=== PATIENT | female | born 1980 | race Caucasian/White ===

== ENCOUNTER 2020-07-13 08:32 | Outpatient (REF) | payer OTHER, SELFPAY ==
[2020-07-13 11:02] LABS: MANUAL DIFF FLAG NO
[2020-07-13 11:17] LABS: Basophils Percent Auto 0.4 % (0-2); Eosinophils Absolute Auto 0.3 X10*3/uL (0.0-0.4); Eosinophils Percent Auto 2.4 % (0-4); Hematocrit 39.2 % (37-47); Hemoglobin 11.8 g/dl (12.0-16.0); Imm Gran Abs Auto 0.07 X10*3/uL (0.00-0.03); Imm Gran Pct Auto 0.6 % (0.0-0.4); Lymphocytes Absolute Auto 2.5 X10*3/uL (1.2-4.9); Lymphocytes Percent Auto 22.6 % (20-40); Mean Corpuscular HGB Conc 30.1 g/dl (31.0-35.0); Mean Corpuscular Hemoglobin 25.4 pg (27.0-33.0); Mean Corpuscular Volume 84.5 fL (80-98); Mean Platelet Volume 10.3 fL (9.4-12.3); Monocytes Absolute Auto 0.6 X10*3/uL (0.1-1.2); Monocytes Percent Auto 5.7 % (2-11); Neutrophils Absolute Auto 7.4 X10*3/uL (2.0-8.3); Neutrophils Percent Auto 68.3 % (45-73); Platelet Count 320 X10*3/uL (160-400); Red Blood Count 4.64 X10*6/uL (4.20-5.50); Red Cell Distribution Width 15.6 % (11.0-16.0); White Blood Count 10.8 X10*3/uL (4.8-10.8)
[2020-07-13 12:07] LABS: Creatinine Urine 57.58 mg/dL; Microalbum/Creatinine Ratio Ur 12.1 ug/mg cr
[2020-07-13 12:13] LABS: Alanine Aminotransferase 23 U/L (0-31); Albumin Level 3.9 g/dL (3.5-5.0); Alkaline Phosphatase 90 U/L (39-117); Anion Gap 11 (12-20); Aspartate Amino Transferase 17 U/L (5-31); Bilirubin Total 0.4 mg/dL (0.0-1.0); Blood Urea Nitrogen 10 mg/dL (9-16); Calcium 8.4 mg/dL (8.4-10.2); Carbon Dioxide 28 mmol/L (22-29); Chloride 103 mmol/L (96-108); Cholesterol 184 mg/dL; Estimated Glomerular Filt Rate > 60; Glucose Fasting 141 mg/dL (60-99); HDL Cholesterol 52 mg/dL; LDL Cholesterol Calculated 119 mg/dl; Potassium 4.7 mmol/L (3.3-5.1); Sodium 137 mmol/L (135-145); Total Protein 6.7 g/dL (6.5-8.0); Triglycerides 69 mg/dL
[2020-07-13 12:18] LABS: Estimated Average Glucose 160 mg/dL; Hemoglobin A1c % 7.2 %
== END 2020-07-13 08:33 | disposition home or self-care (01) ==
LOC: HO.HMGCLDS 08:32
PROVIDERS: PCP Internal Medicine; Visit Provider Internal Medicine
DX: M25.512 Pain in left shoulder (principal); E66.01 Morbid (severe) obesity due to excess calories
CPT/HCPCS: 36415; 80053; 80061; 82043; 83036; 84443; 85025

== ENCOUNTER 2020-08-11 12:20 | Outpatient (REF) | payer OTHER, SELFPAY | END 2020-08-11 12:21 | disposition home or self-care (01) | LOC: HO.HMGCX 12:20 | PROVIDERS: PCP Internal Medicine; Visit Provider Internal Medicine | DX: Z13.89 Encounter for screening for other disorder (principal) ==

== ENCOUNTER 2020-08-31 07:00 | Outpatient (RCR) | payer OTHER, SELFPAY ==
--- NOTE | 2020-07-21 10:46 | MHC.PT.EP ---
[facility] [place] Office [place] Office [place] Office [address] [phone] F: [phone] F: [phone] F: [phone] F: [phone] Physical Therapy Plan of Care Date of Evaluation: 07/21/20 Date of Surgery: n/a Diagnosis: Pain in left shoulder Assessment: Patient is a 39 year old R handed female who presents with s/s consistent with L shoulder pain/impingement. 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 Patient past medical history includes DM and morbid obesity. Current impairments include pain, ROM, strength, posture, activity tolerance and functional mobility. Functional limitations include decreased ability to reach, lift, carry, push, pull, sleep, and perform weight bearing activities.. Patient is motivated with good rehab potential. Skilled PT will address impairments and functional limitations in order to achieve goals. 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 Manual therapy to restore motion and function. Therapeutic exercise to improve strength and flexibility. Neuromuscular re-education for posture and balance. Therapeutic activities to return to functional activities of daily living. Electronically signed by: Isaak Castillo, PT Please sign and return to therapist. Thank you for your referral.
--- NOTE | ~2020-08-31 | XR_ITS ---
EXAMINATION: XR SHOULDER, LEFT CLINICAL INFORMATION: Pain left shoulder. COMPARISON: None TECHNIQUE: Left shoulder is imaged in 3 views. FINDINGS: There is focal calcification in region of distal rotator cuff, likely at the distal infraspinatus consistent with calcific tendinosis. There is some mild spurring or calcification also near the distal teres minor. The glenohumeral joint is unremarkable. There is no fracture or dislocation. The acromioclavicular alignment is normal. XR/XR shoulder LT min 2V IMPRESSION: Calcific tendinosis rotator cuff.
--- NOTE | 2020-09-01 07:13 | MHC.PT.DC ---
[facility] [place] Office [place] Office [place] Office [address] Tangela [address] [phone] F: [phone] F: [phone] F: [phone] F: [phone] Physical Therapy Discharge Report Diagnosis: Pain in left shoulder Date of Surgery: n/a Date of Evaluation: 07/21/20 Date of Discharge: 08/31/20 Treatments to Date: 10 Cancellations to Date: 0 No Shows to Date: 0 Discharge Status: Recommend MD Follow-up Discharge Summary: Pt has had no significant progress with 10 skilled PT visits. I will recommend further imaging at this time to discern best management of this patient to restore PLOF and quality of life. We have tried various interventions and none of them have improved symptomatic presentation. Electronically signed by: Isaak Castillo, PT Please sign and return to therapist. Thank you for your referral.
== END 2020-09-30 10:18 | disposition home or self-care (01) ==
LOC: HO.PTCHIC 07:00
PROVIDERS: PCP Internal Medicine; Visit Provider Internal Medicine
DX: M25.512 Pain in left shoulder (principal)
CPT/HCPCS: 73030; 97014; 97110; 97140; 97161

== ENCOUNTER → 2020-09-02 14:10 | Outpatient (BNVA) | payer OTHER, SELFPAY | PROVIDERS: PCP Internal Medicine; Visit Provider Physician Assistant | DX: M75.32 Calcific tendinitis of left shoulder (principal) | CPT/HCPCS: J1040 ==

== ENCOUNTER 2021-04-25 09:38 | Outpatient (REF) | payer OTHER, SELFPAY ==
--- NOTE | ~2021-04-25 | XR_ITS ---
EXAMINATION: XR ABDOMEN KUB CLINICAL INDICATION: Unspecified abdominal pain. COMPARISON: None TECHNIQUE: AP view of the abdomen. FINDINGS: The bowel gas pattern is nonspecific. There is no organomegaly. No radiopaque calculi seen. There is evidence of cholecystectomy. An IUD is noted in the pelvis. No gross bony abnormality seen. XR/XR KUB IMPRESSION: Unremarkable KUB exam.
[2021-04-25 11:57] LABS: Appearance Urine HAZY; Color Urine YELLOW; Glucose Urine UA NEG (NEG); Leukocyte Esterase Urine NEG (NEG); Nitrite Urine NEG (NEG); PH 5.5 (5.0-8.0); Specific Gravity - Urine >= 1.030 (1.005-1.025); Urine Blood NEG (NEG); Urine Ketones 15 MG/DL (NEG); Urine Protein NEG (NEG-TRACE)
[2021-04-25 12:19] LABS: Bacteria Urine 2+ /LPF; RBC Urine 0 /HPF (0); Squamous Epithelial Cell Urine 2+ /LPF
== END 2021-04-25 09:39 | disposition home or self-care (01) ==
LOC: HO.HMGCX 09:38
PROVIDERS: PCP Internal Medicine; Visit Provider Internal Medicine
DX: R10.9 Unspecified abdominal pain (principal)
CPT/HCPCS: 74018; 81001

== ENCOUNTER 2021-09-06 09:07 | Outpatient (REF) | payer OTHER, SELFPAY ==
[2021-09-06 11:09] LABS: MANUAL DIFF FLAG NO
[2021-09-06 11:29] LABS: Basophils Percent Auto 0.4 % (0-2); Eosinophils Absolute Auto 0.2 X10*3/uL (0.0-0.4); Eosinophils Percent Auto 1.8 % (0-4); Hematocrit 38.6 % (37.0-47.0); Hemoglobin 11.6 g/dl (12.0-16.0); Imm Gran Abs Auto 0.06 X10*3/uL (0.00-0.03); Imm Gran Pct Auto 0.7 % (0.0-0.4); Lymphocytes Absolute Auto 1.8 X10*3/uL (1.2-4.9); Lymphocytes Percent Auto 21.3 % (20-40); Mean Corpuscular HGB Conc 30.1 g/dl (31.0-35.0); Mean Corpuscular Hemoglobin 25.1 pg (27.0-33.0); Mean Corpuscular Volume 83.5 fL (80.0-98.0); Mean Platelet Volume 9.6 fL (9.4-12.3); Monocytes Absolute Auto 0.6 X10*3/uL (0.1-1.2); Monocytes Percent Auto 6.9 % (2-11); Neutrophils Absolute Auto 5.9 x10*3/uL (2.0-8.3); Neutrophils Percent Auto 68.9 % (45-73); Platelet Count 341 X10*3/uL (160-400); Red Blood Count 4.62 X10*6/uL (4.20-5.50); Red Cell Distribution Width 15.2 % (11.0-16.0); White Blood Count 8.5 X10*3/uL (4.8-10.8)
[2021-09-06 12:09] LABS: Creatinine Urine 111.19 mg/dL; Microalbum/Creatinine Ratio Ur 11.6 ug/mg cr
[2021-09-06 12:14] LABS: Estimated Average Glucose 177 mg/dL; Hemoglobin A1c % 7.8 %
[2021-09-06 12:47] LABS: Alanine Aminotransferase 39 U/L (0-31); Albumin Level 3.8 g/dL (3.5-5.0); Alkaline Phosphatase 90 U/L (39-117); Anion Gap 15 (12-20); Aspartate Amino Transferase 26 U/L (5-31); Bilirubin Total 0.3 mg/dL (0.0-1.0); Blood Urea Nitrogen 10 mg/dL (9-16); Calcium 9.3 mg/dL (8.4-10.2); Carbon Dioxide 22 mmol/L (22-29); Chloride 106 mmol/L (96-108); Cholesterol 195 mg/dL; Estimated Glomerular Filt Rate > 60; Glucose Fasting 154 mg/dL (60-99); HDL Cholesterol 51 mg/dL; Iron 41 mcg/dL (30-160); LDL Cholesterol Calculated 131 mg/dl; Potassium 4.7 mmol/L (3.3-5.1); Sodium 138 mmol/L (135-145); Total Protein 6.9 g/dL (6.5-8.0); Triglycerides 66 mg/dL
[2021-09-06 12:57] LABS: TSH reflex Free T4 1.84 uIU/mL (0.32-4.0)
[2021-09-06 13:38] LABS: Percent Iron Saturation 11 % (15-50); Total Iron Binding Capacity 372 mcg/dL (228-428); Unsaturated Iron Binding 331 ug/dL
== END 2021-09-06 09:08 | disposition home or self-care (01) ==
LOC: HO.HMGCLDS 09:07
PROVIDERS: PCP Internal Medicine; Visit Provider Internal Medicine
DX: Z00.00 Encounter for general adult medical examination without abnormal findings (principal); E11.9 Type 2 diabetes mellitus without complications; E66.01 Morbid (severe) obesity due to excess calories; D64.9 Anemia, unspecified; F41.9 Anxiety disorder, unspecified; M75.32 Calcific tendinitis of left shoulder; M25.512 Pain in left shoulder; R21 Rash and other nonspecific skin eruption
CPT/HCPCS: 36415; 80053; 80061; 82043; 83036; 83540; 84443; 85025; 85027

== ENCOUNTER 2021-10-09 10:23 | Outpatient (REF) | payer OTHER, SELFPAY ==
--- NOTE | ~2021-10-09 | XR_ITS ---
EXAMINATION: XR LUMBOSACRAL SPINE CLINICAL INFORMATION: Sciatica. COMPARISON: None TECHNIQUE: Three views of the lumbosacral spine. FINDINGS: There is maintained lumbar lordosis. The vertebral heights, alignment and disc heights are normal. No visible acute fracture, dislocation or subluxation seen. There is no lytic or sclerotic process. The paravertebral soft tissues are normal. SI joints are symmetric and normal. An IUD is noted in the pelvis. XR/XR lumbar spine 2-3V IMPRESSION: Unremarkable lumbar spine exam.
[2021-10-09 11:59] LABS: Anion Gap 12 (12-20); Blood Urea Nitrogen 11 mg/dL (9-16); Calcium 9.2 mg/dL (8.4-10.2); Carbon Dioxide 25 mmol/L (22-29); Chloride 104 mmol/L (96-108); Estimated Glomerular Filt Rate > 60; Glucose Random 174 mg/dL (60-115); Magnesium 1.8 mg/dL (1.6-2.6); Potassium 4.1 mmol/L (3.3-5.1); Sodium 137 mmol/L (135-145)
== END 2021-10-09 10:24 | disposition home or self-care (01) ==
LOC: HO.HMGCLDS 10:23
PROVIDERS: PCP Internal Medicine; Visit Provider Internal Medicine
DX: M54.30 Sciatica, unspecified side (principal); I10 Essential (primary) hypertension; E66.01 Morbid (severe) obesity due to excess calories; E78.5 Hyperlipidemia, unspecified
CPT/HCPCS: 36415; 72100; 80048; 83735

== ENCOUNTER 2021-11-30 07:00 | Outpatient (RCR) | payer OTHER, SELFPAY ==
--- NOTE | 2021-10-20 07:57 | MHC.PT.EP ---
[facility] [place] Office [place] Office [place] Office [address]ela Armstrong [address] [phone] F: [phone] F: [phone] F: [phone] F: [phone] Physical Therapy Plan of Care Date of Evaluation: Date of Surgery: Diagnosis: sciatica Assessment: 40 y/o F referred to PT with sciatica. She has had LBP that radiates into R posterior thigh for 3-4 months of insidious onset. 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 Walking is most difficult. PMH significant for DM and HTN. Examination shows decreased lumbar AROM, decreased core/hip strength, decreased quad and hip flexor length, increased pain, and impaired gait pattern. S/s consistent with SI dysfunction and lumbar dysfunction. Recommend PT 2x/week for 5 weeks to address impairments, implement HEP, and optimize functional mobility. Frequency and Duration: The patient will be seen 2x/week for 5 weeks Short Term Goals: 3 weeks 1. I with HEP 2. Improve lumbar hip flexion to 100* B Halfway Goals: 5 weeks 1. I with HEP and self management of sx 2. Improve B hip strength to 4+/5 to facilitate prolonged walking 3. Pt will be able to wash dishes x 10min with pain < 3/10 Treatment Plan: Modalities to reduce pain, spasms and effusion. Manual therapy to restore motion and function. Therapeutic exercise to improve strength and flexibility. Neuromuscular re-education for posture and balance. Therapeutic activities to return to functional activities of daily living. Electronically signed by: Eun Ziegler PT Please sign and return to therapist. Thank you for your referral.
--- NOTE | 2021-11-30 09:30 | MHC.PT.DC ---
[facility] [place] Office [place] Office [place] Office [address] [phone] F: [phone] F: [phone] F: [phone] F: [phone] Physical Therapy Discharge Report Diagnosis: sciatica Date of Surgery: Date of Evaluation: 10/20/21 Date of Discharge: Treatments to Date: 9 Cancellations to Date: 1 No Shows to Date: 0 Discharge Status: Discharge Summary: We reviewed and re-issued HEP. Pt is I with HEP thus far. Lumbar and hip flexion WNL. Hip strength 4+/5 grossly. Able to stand, walk and wash dishes without increase of pain beyond 3/10. Oswestry 8%. Pt has progressed well on impairments and functional limitations over the course of skilled PT and is appropriate to d/c to HEP at this time. Electronically signed by: Please sign and return to therapist. Thank you for your referral.
== END 2021-11-30 09:31 | disposition home or self-care (01) ==
LOC: HO.PTCHIC 07:00
PROVIDERS: PCP Internal Medicine; Visit Provider Internal Medicine
DX: M54.30 Sciatica, unspecified side (principal)
CPT/HCPCS: 97110; 97112; 97140; 97161

== ENCOUNTER 2022-01-04 07:00 | Outpatient (RCR) | payer OTHER, SELFPAY | END 2022-04-04 10:27 | disposition home or self-care (01) | LOC: HO.PTCHIC 07:00 | PROVIDERS: PCP Internal Medicine; Visit Provider Physician Assistant | DX: M25.811 Other specified joint disorders, right shoulder (principal); M25.812 Other specified joint disorders, left shoulder | CPT/HCPCS: 97035; 97110; 97140; 97161 ==

== ENCOUNTER → 2022-01-05 15:07 | Outpatient (BNVA) | payer OTHER, SELFPAY | PROVIDERS: PCP Internal Medicine; Visit Provider Internal Medicine Endocrinology, Diabetes & Metabolism | DX: E11.65 Type 2 diabetes mellitus with hyperglycemia (principal); E78.5 Hyperlipidemia, unspecified | CPT/HCPCS: 82947 ==

== ENCOUNTER 2022-01-10 08:06 | Outpatient (REF) | payer OTHER, SELFPAY ==
[2022-01-10 11:53] LABS: Alanine Aminotransferase 22 U/L (0-31); Albumin Level 3.7 g/dL (3.5-5.0); Alkaline Phosphatase 83 U/L (39-117); Anion Gap 17 (12-20); Aspartate Amino Transferase 26 U/L (5-31); Bilirubin Total 0.2 mg/dL (0.0-1.0); Blood Urea Nitrogen 11 mg/dL (9-16); Calcium 8.7 mg/dL (8.4-10.2); Carbon Dioxide 23 mmol/L (22-29); Chloride 105 mmol/L (96-108); Estimated Glomerular Filt Rate > 60; Glucose Fasting 152 mg/dL (60-99); Potassium 4.9 mmol/L (3.3-5.1); Sodium 140 mmol/L (135-145); Total Protein 6.9 g/dL (6.5-8.0)
[2022-01-10 12:00] LABS: Estimated Average Glucose 148 mg/dL; Hemoglobin A1c % 6.8 %
== END 2022-01-10 08:07 | disposition home or self-care (01) ==
LOC: HO.HMGCLDS 08:06
PROVIDERS: PCP Internal Medicine; Visit Provider Internal Medicine
DX: E11.9 Type 2 diabetes mellitus without complications (principal); I10 Essential (primary) hypertension; E78.5 Hyperlipidemia, unspecified; Z79.4 Long term (current) use of insulin
CPT/HCPCS: 36415; 80053; 83036; 85027

== ENCOUNTER 2022-01-13 06:44 | Outpatient (REF) | payer OTHER, SELFPAY ==
[2022-01-13 11:12] LABS: Hematocrit 35.7 % (37.0-47.0); Mean Corpuscular HGB Conc 30.8 g/dl (31.0-35.0); Mean Corpuscular Hemoglobin 26.2 pg (27.0-33.0); Platelet Count 329 X10*3/uL (160-400); Red Cell Distribution Width 15.5 % (11.0-16.0); White Blood Count 9.3 X10*3/uL (4.8-10.8)
== END 2022-01-13 06:45 | disposition home or self-care (01) ==
LOC: HO.HMGCLDS 06:44
PROVIDERS: PCP Internal Medicine; Visit Provider Internal Medicine
DX: E78.5 Hyperlipidemia, unspecified (principal); I10 Essential (primary) hypertension
CPT/HCPCS: 36415; 85027

== ENCOUNTER 2022-01-23 08:12 | Outpatient (REF) | payer OTHER, SELFPAY ==
[2022-01-23 12:05] LABS: Anion Gap 16 (12-20); Blood Urea Nitrogen 11 mg/dL (9-16); Calcium 8.8 mg/dL (8.4-10.2); Carbon Dioxide 24 mmol/L (22-29); Chloride 105 mmol/L (96-108); Estimated Glomerular Filt Rate > 60; Glucose Random 154 mg/dL (60-115); Potassium 4.5 mmol/L (3.3-5.1); Sodium 140 mmol/L (135-145)
== END 2022-01-23 08:13 | disposition home or self-care (01) ==
LOC: HO.HMGCLDS 08:12
PROVIDERS: PCP Internal Medicine; Visit Provider Internal Medicine Endocrinology, Diabetes & Metabolism
DX: E11.65 Type 2 diabetes mellitus with hyperglycemia (principal)
CPT/HCPCS: 36415; 80048

== ENCOUNTER 2022-02-16 08:09 | Outpatient (REF) | payer OTHER, SELFPAY ==
[2022-02-16 11:35] LABS: Cholesterol 136 mg/dL; HDL Cholesterol 46 mg/dL; LDL Cholesterol Calculated 80 mg/dl; Triglycerides 50 mg/dL
== END 2022-02-16 08:10 | disposition home or self-care (01) ==
LOC: HO.HMGCLDS 08:09
PROVIDERS: PCP Internal Medicine; Visit Provider Internal Medicine Endocrinology, Diabetes & Metabolism
DX: E78.5 Hyperlipidemia, unspecified (principal)
CPT/HCPCS: 36415; 80061

== ENCOUNTER → 2022-03-14 08:55 | Outpatient (BNVA) | payer OTHER, SELFPAY | PROVIDERS: PCP Internal Medicine; Visit Provider Dietitian, Registered | DX: E11.65 Type 2 diabetes mellitus with hyperglycemia (principal) | CPT/HCPCS: 97802 ==

== ENCOUNTER → 2022-04-02 15:02 | Outpatient (REF) | payer OTHER, SELFPAY | LOC: HO.SL 15:02 | PROVIDERS: PCP Internal Medicine; Visit Provider Internal Medicine | DX: G47.33 Obstructive sleep apnea (adult) (pediatric) (principal) | CPT/HCPCS: 95806 ==

== ENCOUNTER 2022-04-18 07:00 | Outpatient (RCR) | payer OTHER, SELFPAY | END 2022-04-18 11:37 | disposition home or self-care (01) | LOC: HO.PTCHIC 07:00 | PROVIDERS: PCP Internal Medicine; Visit Provider Orthopaedic Surgery | DX: Z98.890 Other specified postprocedural states (principal) | CPT/HCPCS: 97110; 97140; 97162 ==

== ENCOUNTER 2022-05-05 13:09 | Outpatient (REF) | payer OTHER, SELFPAY ==
[2022-05-05 14:31] LABS: Estimated Average Glucose 140 mg/dL; Hemoglobin A1c % 6.5 %
[2022-05-05 14:32] LABS: Creatinine Urine 151.18 mg/dL; Microalbum/Creatinine Ratio Ur 15.8 ug/mg cr
[2022-05-05 14:53] LABS: Alanine Aminotransferase 17 U/L (0-31); Albumin Level 3.7 g/dL (3.5-5.0); Alkaline Phosphatase 88 U/L (39-117); Anion Gap 12 (12-20); Aspartate Amino Transferase 13 U/L (5-31); Bilirubin Total 0.3 mg/dL (0.0-1.0); Blood Urea Nitrogen 13 mg/dL (9-16); Calcium 8.8 mg/dL (8.4-10.2); Carbon Dioxide 26 mmol/L (22-29); Chloride 105 mmol/L (96-108); Cholesterol 118 mg/dL; Estimated Glomerular Filt Rate > 60; Glucose Fasting 128 mg/dL (60-99); HDL Cholesterol 41 mg/dL; LDL Cholesterol Calculated 66 mg/dl; Potassium 4.4 mmol/L (3.3-5.1); Sodium 139 mmol/L (135-145); TSH reflex Free T4 1.72 uIU/mL (0.32-4.0); Total Protein 6.3 g/dL (6.5-8.0); Triglycerides 56 mg/dL
== END 2022-05-05 13:10 | disposition home or self-care (01) ==
LOC: HO.HMGCLDS 13:09
PROVIDERS: PCP Internal Medicine; Visit Provider Internal Medicine
DX: G47.30 Sleep apnea, unspecified (principal); I10 Essential (primary) hypertension; E78.5 Hyperlipidemia, unspecified; Z79.4 Long term (current) use of insulin
CPT/HCPCS: 36415; 80053; 80061; 82043; 83036; 84443

== ENCOUNTER → 2022-05-08 08:04 | Outpatient (BNVA) | payer OTHER, SELFPAY | PROVIDERS: PCP Internal Medicine; Visit Provider Internal Medicine Endocrinology, Diabetes & Metabolism | DX: E11.65 Type 2 diabetes mellitus with hyperglycemia (principal); E78.5 Hyperlipidemia, unspecified; E66.01 Morbid (severe) obesity due to excess calories; Z68.43 Body mass index [BMI] 50.0-59.9, adult; Z79.4 Long term (current) use of insulin | CPT/HCPCS: 82947 ==

== ENCOUNTER 2022-06-14 12:01 | Outpatient (REF) | payer OTHER, SELFPAY ==
[2022-06-14 12:54] LABS: Influenza A PCR NEGATIVE (Negative); Influenza B PCR NEGATIVE (Negative); Resp Syncy Virus RNA Qual PCR NEGATIVE (Negative); SARS COV2 PCR INHOUSE NEGATIVE (Negative)
== END 2022-06-14 12:02 | disposition home or self-care (01) ==
LOC: HO.LNP 12:01
PROVIDERS: Visit Provider Internal Medicine
DX: Z20.822 Contact with and (suspected) exposure to COVID-19 (principal); R09.89 Other specified symptoms and signs involving the circulatory and respiratory systems
CPT/HCPCS: 0241U

== ENCOUNTER → 2022-06-26 19:30 | Outpatient (REF) | payer OTHER, SELFPAY | LOC: HO.SL 19:30 | PROVIDERS: Visit Provider Internal Medicine | DX: G47.33 Obstructive sleep apnea (adult) (pediatric) (principal) | CPT/HCPCS: 95811 ==

== ENCOUNTER 2022-09-03 07:55 | Outpatient (REF) | payer OTHER, SELFPAY ==
[2022-09-03 11:10] LABS: MANUAL DIFF FLAG NO
[2022-09-03 11:22] LABS: Appearance Urine Clear; Color Urine Yellow; Glucose Urine UA >=1000 mg/dL (Negative); Leukocyte Esterase Urine Negative (Negative); Nitrite Urine Negative (Negative); PH 5.5 (5.0-9.0); Specific Gravity - Urine >= 1.030 (1.005-1.025); UMIC TRIGGER UA YES; Urine Blood Negative (Negative); Urine Ketones 15 mg/dL (Negative); Urine Protein Negative (Neg-Trace)
[2022-09-03 11:24] LABS: Basophils Absolute Auto 0.1 X10*3/uL (0.0-0.2); Basophils Percent Auto 0.5 % (0-2); Eosinophils Absolute Auto 0.2 X10*3/uL (0.0-0.4); Eosinophils Percent Auto 1.6 % (0-4); Hematocrit 38.8 % (37.0-47.0); Hemoglobin 11.9 g/dl (12.0-16.0); Imm Gran Abs Auto 0.06 X10*3/uL (0.00-0.03); Imm Gran Pct Auto 0.6 % (0.0-0.4); Lymphocytes Absolute Auto 2.1 X10*3/uL (1.2-4.9); Lymphocytes Percent Auto 19.7 % (20-40); Mean Corpuscular HGB Conc 30.7 g/dl (31.0-35.0); Mean Corpuscular Hemoglobin 26.7 pg (27.0-33.0); Mean Platelet Volume 9.8 fL (9.4-12.3); Monocytes Absolute Auto 0.6 X10*3/uL (0.1-1.2); Monocytes Percent Auto 5.6 % (2-11); Neutrophils Absolute Auto 7.6 x10*3/uL (2.0-8.3); Platelet Count 320 X10*3/uL (160-400); Red Blood Count 4.46 X10*6/uL (4.20-5.50); Red Cell Distribution Width 15.3 % (11.0-16.0); White Blood Count 10.5 X10*3/uL (4.8-10.8)
[2022-09-03 11:29] LABS: Bacteria Urine 2+ (None Seen); Hyaline Casts Urine 0-2 /LPF (0-2); RBC Urine 0-2 /HPF (0-2)
[2022-09-03 11:50] LABS: Estimated Average Glucose 117 mg/dL; Hemoglobin A1c % 5.7 %
[2022-09-03 11:54] LABS: Alanine Aminotransferase 19 U/L (0-31); Albumin Level 3.8 g/dL (3.5-5.0); Alkaline Phosphatase 96 U/L (39-117); Anion Gap 12 (12-20); Aspartate Amino Transferase 16 U/L (5-31); Bilirubin Total 0.6 mg/dL (0.0-1.0); Blood Urea Nitrogen 9 mg/dL (9-16); Carbon Dioxide 28 mmol/L (22-29); Chloride 106 mmol/L (96-108); Cholesterol 126 mg/dL; Estimated Glomerular Filt Rate > 60; Glucose Fasting 122 mg/dL (60-99); HDL Cholesterol 45 mg/dL; LDL Cholesterol Calculated 71 mg/dl; Potassium 4.1 mmol/L (3.3-5.1); Sodium 142 mmol/L (135-145); Total Protein 6.6 g/dL (6.5-8.0); Triglycerides 54 mg/dL
[2022-09-03 12:24] LABS: Folate 9.4 ng/mL (> or = 4.0); TSH reflex Free T4 2.33 uIU/mL (0.32-4.0); Vitamin B12 753 pg/mL (200-900); Vitamin D 25-OH Total 30.5 ng/mL (>30)
[2022-09-04 19:08] LABS: Triiodothyronine T3 Free 3.4 pg/mL (2.3-4.2)
== END 2022-09-03 07:56 | disposition home or self-care (01) ==
LOC: HO.HMGCLDS 07:55
PROVIDERS: PCP Internal Medicine; Visit Provider Internal Medicine
DX: Z00.00 Encounter for general adult medical examination without abnormal findings (principal); E66.01 Morbid (severe) obesity due to excess calories; G47.30 Sleep apnea, unspecified; E55.9 Vitamin D deficiency, unspecified; E53.8 Deficiency of other specified B group vitamins; I10 Essential (primary) hypertension; E78.5 Hyperlipidemia, unspecified; E11.9 Type 2 diabetes mellitus without complications
CPT/HCPCS: 36415; 80053; 80061; 81001; 82306; 82607; 82746; 83036; 84443; 84481; 85025

== ENCOUNTER 2023-01-01 07:58 | Outpatient (AMB) | payer OTHER, SELFPAY ==
--- NOTE | 2023-01-01 08:01 | A.OFFVIS_ITS ---
Intake Vital Signs 01/01/23 08:04 Height 5 ft 2 in Weight 300 lb 11.368 oz BMI 55.0 BP 106/68 Blood Pressure Location Lt brachial Position Sitting Pulse 78 Pulse Source Pulse Oximeter Intake Visit Reasons: DM2 Intake Note: Patient present today to follow up on Type 2 Diabetes Mellitus. 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 Medication List - Last Reconciled 01/01/23 by Abiodun Arreola MD albuterol sulfate 90 mcg/actuation 1 puff PO QID PRN atorvastatin 20 mg PO DAILY CPAP (CPAP Machine/Device) including supplies-pressure setting 13cm H2O with AirFit 20 small mask empagliflozin (Jardiance) 25 mg PO DAILY flash glucose scanning reader (FreeStyle Sheryl 2 [place]) As directed flash glucose sensor (FreeStyle Sheryl 2 Sensor kit) As directed to test blood sugar 4 times per day Humalog KwikPen Insulin (insulin lispro) 14 units (0.14 mL) subcut TID NS insulin glargine (Lantus U-100 Insulin) 50 units subcut DAILY lancets (FreeStyle Lancets) test blood sugar 3 times per day olmesartan 10 mg PO DAILY pantoprazole 40 mg PO BID tirzepatide (Mounjaro) 10 mg (0.5 mL) subcut QWEEK HPI HPI Comments History of Present Illness Details 41 YO F who is seen in consultation for T2DM at the request of PCP. Initially diagnosed with T2DM in 2012. Was initially started on treatment with metformin.Can't swallow Current regimen Mounjaro 10 mg q wkly stooped in october due to insurance coverage . Took Trulicity in past Jardiance 25 mg QD Lantus 40 units Humalog 13 units in AM and 20 units before lunch and dinner Per the CGM / Sheryl CGMS is active 91 % of time . data the patient's predicted A1C is 7.5 % . Avg glucose is 176 . Variability of 23.9 % The patient's blood sugars were in target 53% % of the time, above target 47 % of the time, and below target 0% % of the time Pattern shows post-lunch and post-dinner hyperglycemia Reports no low sugars . . Family history of T2DM in Paternal side . Has eyes checked yearly, last eye exam October 2022 , denies retinopathy. Denies neuropathy, last foot exam couple of wks ago , sees podiatry. Denies nephropathy, on MEENAKSHI/ARB. Has HLD, on statin. Denies CAD. Had diabetes education when first diagnosed Obesity during teen yrs. Have sleep apnea . CPAP didn't work. Did well On Trim Healthy Mama lost 50 lbs Tried OTC meds PFSH Medical History Acute flank pain Anemia Annual physical exam Anxiety Dysphagia HTN (hypertension) Hx of screening mammography Hyperlipemia IDDM (insulin dependent diabetes mellitus) Morbid obesity Normal Pap smear Normal pelvic exam Rash of both feet Sciatica Sleep apnea Uncontrolled diabetes mellitus with hyperglycemia Surgical History History of tonsillectomy and adenoidectomy Hx of cholecystectomy Hx of shoulder surgery Hx of wisdom tooth extraction Family History Father CVD (cardiovascular disease) Diabetes mellitus Substance use disorder Mother No problems noted. Paternal Grandmother Diabetes mellitus Paternal Grandfather Diabetes mellitus Sister Cancer of thyroid Maternal Grandmother Mental health disorder Social History Housing: Apartment Alcohol intake: current Alcohol intake frequency: holidays/special occasions only Patient Tobacco Use Status: Former Tobacco user Quit Date: 2002 e-Cigarette/Vaping Use: Never Used Current occupational status: employed Cognitive needs: No Hearing needs: No Vision needs: Yes Physical Exam Vital Signs: Last Vital Signs Pulse 78 01/01/23 08:04 BP 106/68 01/01/23 08:04 BMI result Body Mass Index 55.0 Absence of Cushingoid features. Absence of acromegalic features. Neck exam reveals nl size thyroid about 15 gms. No thyroid nodules palpable. No carotid bruits present. Lungs CTA. Heart S1 S2, Reg R/R. No M/R/ G. Skin exam reveals absence of vitiligo but presence of acanthosis nigricans. Abdominal exam reveals Soft NT/ND with NA BS. No organomegaly present. Neck Other: . Extrem Other: Visual exam of foot performed. No ulcerations or open lesions. No onchomycosis, no callouses.Pulses 2 + distally Sensation intact to monofilament exam. Vibratory sensation sensed is intact with 128 Hz tuning fork Results AMB Hemoglobin A1c AMB Hemoglobin A1c 6.6 % Last Edit by GONZALEZ Paniagua on 01/01/23 08:23 Results Reviewed Results Reviewed: 01/01/23 08:12 Glucose, Whole Blood Routine Laboratory Last Values Glucose (Clinic) 143 mg/dL (60-115) H 01/01/23 08:12 Assessment & Plan Assessment & Plan (1) IDDM (insulin dependent diabetes mellitus): Comment: Difficulty swallowing metformin tablet (2) Uncontrolled diabetes mellitus with hyperglycemia: Code(s): E11.65 - Type 2 diabetes mellitus with hyperglycemia Plan: This is a 42-year-old white female with a history of type 2 diabetes and morbid obesity being treated with Mounjaro, Farxiga, basal -bolus insulin with good but not optimal glycemic control and no known microvascular or macrovascular complications The plan is to reinitiate a G LP 1 namely Ozempic 1 mg Q weekly. Patient was warned of side effects of Ozempic including but not limited to nausea, vomiting risk pancreatitis. Was also told to report any hypoglycemia for adjustment of insulin regimen . Ozempic 0.5 mg samples given the patient lot number [id number] expiration 06/26/2024 (3) Hyperlipemia: Code(s): E78.5 - Hyperlipidemia, unspecified Plan: LDL is not at goal. LDL at goal on atorvastatin Orders: Orders AMB Hemoglobin A1c Today E11.65 - Type 2 diabetes mellitus with hyperglycemia Medications: New semaglutide (Ozempic) 1 mg (0.75 mL) subcut QWEEK 3 mL 5RF Changed From insulin glargine (Lantus U-100 Insulin) 40 units (0.4 mL) subcut DAILY 40 mL 3RF To insulin glargine (Lantus U-100 Insulin) 50 units subcut DAILY Discontinued tirzepatide (Mounjaro) Discontinued Reason: Doctor's Order 10 mg (0.5 mL) subcut QWEEK 2 mL 4RF E11.65 - Type 2 diabetes mellitus with hyperglycemia Coding Level of Care Code Est Pt Level 4 (11337) Diagnoses IDDM (insulin dependent diabetes mellitus) Uncontrolled diabetes mellitus with hyperglycemia E11.65 Hyperlipemia E78.5
[2023-01-01 08:04] VITALS: BP 106/68; PULSE 78; BMI 55.0
[2023-01-01 08:17] LABS: Glucose, Whole Blood 143 mg/dL (60-115)
== END 2023-01-01 08:57 | disposition home or self-care (01) ==
PROVIDERS: PCP Internal Medicine; Visit Provider Internal Medicine Endocrinology, Diabetes & Metabolism
DX: E11.65 Type 2 diabetes mellitus with hyperglycemia (principal); E78.5 Hyperlipidemia, unspecified
CPT/HCPCS: 99214

== ENCOUNTER → 2023-01-01 07:58 | Outpatient (BNVA) | payer OTHER, SELFPAY | PROVIDERS: Visit Provider Internal Medicine Endocrinology, Diabetes & Metabolism | DX: E11.65 Type 2 diabetes mellitus with hyperglycemia (principal); Z79.4 Long term (current) use of insulin; Z87.891 Personal history of nicotine dependence | CPT/HCPCS: 82947; 83036 ==

== ENCOUNTER 2023-06-30 17:58 | Emergency (ER) | payer OTHER, SELFPAY ==
--- NOTE | ~2023-06-30 | CT_ITS ---
EXAMINATION: CT ANGIOGRAM NECK AND HEAD CLINICAL INFORMATION: Severe b occipital pain with elevated BP COMPARISON: Noncontrast head CT 06/30/2023 TECHNIQUE: Test bolus sequences followed by intravenous administration 70 mL of Omnipaque 350. Helical imaging was performed in the axial plane from the thoracic inlet to the skull vertex. Delayed postcontrast imaging of the head was also performed. The data was processed at the certified neurodiagnostic technologist's workstation for generation of MIP sequences. Angled MIPs and volume rendered reformatted images were also generated at an offline 3D workstation. Stenoses are assessed in accordance with NASCET criteria unless otherwise indicated. DOSE LOWERING TECHNIQUES: This CT examination was performed using dose optimization techniques as appropriate, variously including the following: - Automated exposure control - Adjustment of mA and/or kV according to patient size (this includes techniques or standardized protocols for targeted exams were dose is matched to indication/reason for exam; i.e. extremities or head) - Use of iterative reconstruction technique DLP: 1697 mGy-cm FINDINGS: Neck CTA: There is common origin of the brachiocephalic and left common carotid arteries off the aortic arch. Normal appearance of the visualized aortic arch and proximal branches. No evidence of stenosis at the branch origins. Both vertebral arteries are widely patent throughout their extracranial cervical course. Normal appearance of the common and internal carotid arteries without focal stenosis. Brain CTA: Normal appearance of the intradural vertebral arteries. Normal appearance of the basilar and superior cerebellar arteries. Normally opacified posterior cerebral arteries bilaterally, with origin of the right posterior cerebral artery noted. Normal appearance of the intradural internal carotid arteries without focal stenosis. Normal appearance of the anterior cerebral and middle cerebral arteries without focal occlusion or stenosis. Normal anterior communicating artery. Normal arborization of the middle cerebral arteries. CT Head: No intracranial mass, hemorrhage, extra-axial collection, or midline shift. The vo-white matter differentiation is preserved. No pathologic intra-axial enhancement or regional oligemia. No hydrocephalus. Partially opacified bilateral ethmoid air cells. Mastoid air cells are well aerated. CT Neck: The thyroid gland and remaining cervical soft tissues are normal in appearance. Mild degenerative changes in the cervical spine as detailed on recent cervical spine CT. Upper Chest: No abnormalities in the visualized lung apices or upper mediastinum. CT/CT angio head neck IMPRESSION: No hemodynamically significant stenosis in the major arteries of the neck. No large vessel occlusion or significant stenosis in the intracranial circulation.
--- NOTE | ~2023-06-30 | CT_ITS ---
Examination: CT brain and CT cervical spine without contrast. CLINICAL INDICATION: Occipital pain. COMPARISON: None. TECHNIQUE: 5 mm thin axial and reformatted 2 mm thin sagittal and coronal images of brain were obtained. Subsequently axial 3 mm thin and reformatted 2 mm thin sagittal and coronal images of cervical spine were obtained. DLP 1359. This CT examination was performed using dose optimization technique as appropriate, variously including the following: Automated exposure control Adjustment of MA and/or KV according to patient size(this includes techniques or standardized protocols for targeted exams where dose is matched to indication/reason for exam; extremities or head. Use of iterative reconstruction techniques. FINDINGS: Brain: There is no acute intra-axial, extra-axial bleed, masses or midline shift. There is no acute infarction in evolution. There is no edema. The vo to white matter differentiation is maintained normal. The lateral ventricles are symmetrical in size and configuration without enlargement. Bone windows reveal no calvarial abnormality. There is no scalp soft tissue abnormality. There is mild mucoperiosteal thickening bilateral anterior ethmoid sinuses. Rest the paranasal sinuses are clear. There is moderate deviation nasal septum to the left. The bony sinus scales and the bony orbits appear unremarkable. Cervical spine: There is mild straightening of cervical lordosis. The vertebral heights, alignment and disc heights are normal. No visible acute fracture, dislocation or subluxation seen. Is widened ventral spondylosis C4-C5 and T1-T2 disc levels. The craniovertebral junction and the C1-C2 alignment is normal. No visible acute fracture, dislocation or subluxation seen. The airway appears widely patent. Visualized bilateral parotid and submandibular glands appear symmetrical the airways widely patent. The prevertebral and paravertebral soft tissues are normal. The lung apices are clear. The tracheal airway is patent. CT/CT cervical spine wo IV con IMPRESSION: 1. No acute intracranial process seen. No abnormality seen in the occipital region 2. There is no acute fracture, dislocation or subluxation seen in cervical spine. There is mild ventral spondylosis C4-C5 and T1-T2 disc levels.
[2023-06-30 18:02] VITALS: BP 199/83; PULSE 104; RESP 17; TEMP 37.1; O2SAT 97; BMI 57.6
--- NOTE | 2023-06-30 18:06 | ED.GENADULT ---
HPI - General Adult General Chief complaint: Neck Pain/Injury Stated complaint: stiff neck, cant move it. Time Seen by Provider: 06/30/23 23:10 Related Data Home Medications Medication Instructions Recorded Confirmed olmesartan 5 mg tablet 10 mg PO DAILY 11/08/22 01/01/23 insulin glargine 100 unit/mL 50 unit subcut DAILY 01/01/23 01/01/23 subcutaneous solution (Lantus U-100 Insulin) Previous Rx's Medication Instructions Recorded albuterol sulfate 90 mcg/actuation 1 puff PO QID PRN for wheezing #7 11/16/21 aerosol inhaler ea lancets 28 gauge (FreeStyle #300 ea 01/19/22 Lancets) CPAP (CPAP Machine/Device) #1 ea 07/17/22 flash glucose scanning reader #1 ea 08/20/22 (FreeStyle Sheryl 2 [place]) pantoprazole 40 mg tablet,delayed 40 mg PO BID #180 tabs 12/12/22 release semaglutide 1 mg/dose (4 mg/3 mL) 1 mg (0.75 mL) subcut QWEEK #3 mL 01/01/23 subcutaneous pen injector (Ozempic) Humalog KwikPen Insulin 100 14 unit (0.14 mL) subcut TID #15 mL 02/15/23 unit/mL subcutaneous (insulin lispro) flash glucose sensor (FreeStyle #6 ea 02/15/23 Sheryl 2 Sensor kit) atorvastatin 20 mg tablet 20 mg PO DAILY #30 tabs 02/26/23 empagliflozin 25 mg tablet 25 mg PO DAILY #30 tabs 03/25/23 (Jardiance) Allergies Allergy/AdvReac Type Severity Reaction Status Date / Time acetaminophen [Percocet] Allergy Unknown itchy, Verified 01/01/23 08:05 swelling in legs oxycodone [Percocet] Allergy Unknown itchy, Verified 01/01/23 08:05 swelling in legs metformin AdvReac Unknown not able Verified 01/01/23 08:05 to swallow the pill - its too big. [facility] Past Medical History Medical History Uncontrolled diabetes mellitus with hyperglycemia Sciatica Hyperlipemia HTN (hypertension) Hx of screening mammography Normal pelvic exam Anxiety Rash of both feet Acute flank pain Annual physical exam Normal Pap smear Anemia Sleep apnea Morbid obesity Dysphagia IDDM (insulin dependent diabetes mellitus) Surgical History Hx of shoulder surgery Hx of wisdom tooth extraction History of tonsillectomy and adenoidectomy Hx of cholecystectomy Family History Family History Father CVD (cardiovascular disease) Diabetes mellitus Substance use disorder Mother No problems noted. Paternal Grandmother Diabetes mellitus Paternal Grandfather Diabetes mellitus Sister Cancer of thyroid Maternal Grandmother Mental health disorder Social History Social History Housing: Apartment Alcohol intake: current Alcohol intake frequency: holidays/special occasions only Patient Tobacco Use Status: Former Tobacco user Quit Date: 2002 Smoked in Last 30 Days: No e-Cigarette/Vaping Use: Never Used Advance Directives: No Advance Directives Information Provided: No Current occupational status: employed Cognitive needs: No Hearing needs: No Vision needs: Yes Physical Exam ED Vital Signs: Vital Signs - 24 hr 06/30/23 18:02 06/30/23 22:56 06/30/23 23:45 Temperature 98.7 F Pulse Rate 104 H 106 H 77 Respiratory Rate 17 18 20 Blood Pressure 199/83 H 236/102 H 148/77 H Pulse Oximetry 97 95 98 Oxygen Delivery Method Room Air Room Air 07/01/23 01:54 Temperature Pulse Rate 87 Respiratory Rate 16 Blood Pressure 134/53 L Pulse Oximetry 96 Oxygen Delivery Method Room Air BMI result Body Mass Index 57.6 Course Course Course Narrative: RME: 42 yold female presents to the ED for waking up with stiff neck since yesterday morning. patient woke up with neck stfinees. no headache or photophobia. labs and cervical spine cT scan ordered Medications Administered Discontinued Medications Generic Name Dose Route Start Last Admin Trade Name Freq PRN Reason Stop Dose Admin Diphenhydramine HCl 50 mg 07/01/23 01:37 07/01/23 01:41 Diphenhydramine Hcl 50 Mg/Ml Vial IVPUSH 07/01/23 01:38 50 mg ONCE ONE Administration Iohexol 70 ml 07/01/23 00:40 07/01/23 00:41 Iohexol 350 Mg/Ml 100 Ml Infus..Btl IV 07/01/23 00:41 70 ml ONCE ONE Administration Ketorolac Tromethamine 30 mg 07/01/23 01:36 07/01/23 01:41 Ketorolac Tromethamine 30 Mg/Ml Vial IVPUSH 07/01/23 01:37 30 mg ONCE ONE Administration Morphine Sulfate 4 mg 06/30/23 23:33 06/30/23 23:59 Morphine Sulfate 4 Mg/Ml Cartridge IVPUSH 06/30/23 23:34 4 mg ONCE ONE Administration Protocol Ondansetron HCl 4 mg 06/30/23 23:33 06/30/23 23:59 Ondansetron Hcl 4 Mg/2 Ml Vial IVPUSH 06/30/23 23:34 4 mg ONCE ONE Administration Medical Decision Making Lab Data 06/30/23 18:32 06/30/23 18:32 Labs: Lab Results 06/30/23 Range/Units 18:32 WBC 12.2 H (4.8-10.8) X10*3/uL RBC 4.57 (4.20-5.50) X10*6/uL Hgb 12.0 (12.0-16.0) g/dl Hct 38.1 (37.0-47.0) % MCV 83.4 (80.0-98.0) fL MCH 26.3 L (27.0-33.0) pg MCHC 31.5 (31.0-35.0) g/dl RDW 15.8 (11.0-16.0) % Plt Count 332 (160-400) X10*3/uL MPV 9.2 L (9.4-12.3) fL Immature Gran % (Auto) 0.7 H (0.0-0.4) % Neut % (Auto) 71.6 (45-73) % Lymph % (Auto) 17.3 L (20-40) % Dawson % (Auto) 8.0 (2-11) % Eos % (Auto) 1.9 (0-4) % Baso % (Auto) 0.5 (0-2) % Lymph # (Auto) 2.1 (1.2-4.9) X10*3/uL Dawson # (Auto) 1.0 (0.1-1.2) X10*3/uL Eos # (Auto) 0.2 (0.0-0.4) X10*3/uL Baso # (Auto) 0.1 (0.0-0.2) X10*3/uL Abs Immat Gran (auto) 0.08 H (0.00-0.03) X10*3/uL Absolute Neuts (auto) 8.8 H (2.0-8.3) x10*3/uL Absolute Nucleated RBC 0.000 (0.0-0.012) X10*3/uL Nucleated RBC % (auto) 0.0 (0.0-0.2) /100WBC Sodium 141 (135-145) mmol/L Potassium 4.1 (3.3-5.1) mmol/L Chloride 108 (96-108) mmol/L Carbon Dioxide 25 (22-29) mmol/L Anion Gap 12 (12-20) BUN 12 (9-16) mg/dL Creatinine 0.80 (0.5-1.4) mg/dL Estim Creat Clear Calc 124.8 Estimated GFR > 60 Random Glucose 120 H (60-115) mg/dL Calcium 9.0 (8.4-10.2) mg/dL Total Bilirubin 0.2 (0.0-1.0) mg/dL AST 14 (5-31) U/L ALT 17 (0-31) U/L Alkaline Phosphatase 79 (39-117) U/L Total Protein 7.0 (6.5-8.0) g/dL Albumin 3.7 (3.5-5.0) g/dL Discharge Plan Discharge Prescriptions: No Action albuterol sulfate 90 mcg/actuation HFA aerosol inhaler 1 puff PO QID PRN (Reason: for wheezing) Qty: 7 4RF (DME) lancets [FreeStyle Lancets] 28 gauge misc See Rx Instructions .Route Qty: 300 1RF Rx Instructions: test blood sugar 3 times per day (DME) CPAP Machine/Device Device See Rx Instructions .Route Qty: 1 0RF Rx Instructions: including supplies-pressure setting 13cm H2O with AirFit 20 small mask (DME) FreeStyle Sheryl 2 [place] Misc See Rx Instructions .Route Qty: 1 0RF Rx Instructions: As directed pantoprazole 40 mg tablet,delayed release (DR/EC) 40 mg PO BID Qty: 180 3RF (DME) FreeStyle Sheryl 2 Sensor Kit See Rx Instructions .Route Qty: 6 1RF Rx Instructions: As directed to test blood sugar 4 times per day insulin lispro [Humalog KwikPen Insulin] 100 unit/mL insulin pen 14 unit subcut TID Qty: 15 4RF atorvastatin 20 mg tablet 20 mg PO DAILY Qty: 30 3RF Jardiance 25 mg tablet 25 mg PO DAILY Qty: 30 4RF olmesartan 5 mg tablet 10 mg PO DAILY Lantus U-100 Insulin 100 unit/mL solution 50 unit subcut DAILY Ozempic 1 mg/dose (4 mg/3 mL) pen injector 1 mg subcut QWEEK Qty: 3 5RF
[2023-06-30 18:37] LABS: MANUAL DIFF FLAG NO
[2023-06-30 18:38] LABS: Basophils Absolute Auto 0.1 X10*3/uL (0.0-0.2); Basophils Percent Auto 0.5 % (0-2); Eosinophils Absolute Auto 0.2 X10*3/uL (0.0-0.4); Eosinophils Percent Auto 1.9 % (0-4); Hematocrit 38.1 % (37.0-47.0); Imm Gran Abs Auto 0.08 X10*3/uL (0.00-0.03); Imm Gran Pct Auto 0.7 % (0.0-0.4); Lymphocytes Absolute Auto 2.1 X10*3/uL (1.2-4.9); Lymphocytes Percent Auto 17.3 % (20-40); Mean Corpuscular HGB Conc 31.5 g/dl (31.0-35.0); Mean Corpuscular Hemoglobin 26.3 pg (27.0-33.0); Mean Corpuscular Volume 83.4 fL (80.0-98.0); Mean Platelet Volume 9.2 fL (9.4-12.3); Neutrophils Absolute Auto 8.8 x10*3/uL (2.0-8.3); Neutrophils Percent Auto 71.6 % (45-73); Platelet Count 332 X10*3/uL (160-400); Red Blood Count 4.57 X10*6/uL (4.20-5.50); Red Cell Distribution Width 15.8 % (11.0-16.0); White Blood Count 12.2 X10*3/uL (4.8-10.8)
[2023-06-30 18:51] LABS: Alanine Aminotransferase 17 U/L (0-31); Albumin Level 3.7 g/dL (3.5-5.0); Alkaline Phosphatase 79 U/L (39-117); Anion Gap 12 (12-20); Aspartate Amino Transferase 14 U/L (5-31); Bilirubin Total 0.2 mg/dL (0.0-1.0); Blood Urea Nitrogen 12 mg/dL (9-16); Carbon Dioxide 25 mmol/L (22-29); Chloride 108 mmol/L (96-108); Creatinine Clr Calc Pharmacy 124.8; Estimated Glomerular Filt Rate > 60; Glucose Random 120 mg/dL (60-115); Potassium 4.1 mmol/L (3.3-5.1); Sodium 141 mmol/L (135-145)
[2023-06-30 22:56] VITALS: BP 236/102; PULSE 106; RESP 18; O2SAT 95
--- NOTE | 2023-06-30 23:40 | ED.HA ---
HPI - Headache General Chief Complaint: Neck Pain/Injury Stated Complaint: stiff neck, cant move it. Time Seen by Provider: 06/30/23 23:10 Source: patient Mode of arrival: ambulatory Limitations: no limitations History of Present Illness HPI Narrative: Patient with history of hypertension diabetes well control noticed headache since she woke up yesterday morning localized to occipital area no nausea no vomiting no focal deficit no recent injury blood pressure was elevated on arrival to 199/83 no photosensitivity no fever or chills no history of similar headaches in the past repeat blood pressure was 147/88 Related Data Home Medications Medication Instructions Recorded Confirmed olmesartan 5 mg tablet 10 mg PO DAILY 11/08/22 01/01/23 insulin glargine 100 unit/mL 50 unit subcut DAILY 01/01/23 01/01/23 subcutaneous solution (Lantus U-100 Insulin) Previous Rx's Medication Instructions Recorded albuterol sulfate 90 mcg/actuation 1 puff PO QID PRN for wheezing #7 11/16/21 aerosol inhaler ea lancets 28 gauge (FreeStyle #300 ea 01/19/22 Lancets) CPAP (CPAP Machine/Device) #1 ea 07/17/22 flash glucose scanning reader #1 ea 08/20/22 (FreeStyle Sheryl 2 [place]) pantoprazole 40 mg tablet,delayed 40 mg PO BID #180 tabs 12/12/22 release semaglutide 1 mg/dose (4 mg/3 mL) 1 mg (0.75 mL) subcut QWEEK #3 mL 01/01/23 subcutaneous pen injector (Ozempic) Humalog KwikPen Insulin 100 14 unit (0.14 mL) subcut TID #15 mL 02/15/23 unit/mL subcutaneous (insulin lispro) flash glucose sensor (FreeStyle #6 ea 02/15/23 Sheryl 2 Sensor kit) atorvastatin 20 mg tablet 20 mg PO DAILY #30 tabs 02/26/23 empagliflozin 25 mg tablet 25 mg PO DAILY #30 tabs 03/25/23 (Jardiance) Allergies Allergy/AdvReac Type Severity Reaction Status Date / Time acetaminophen [Percocet] Allergy Unknown itchy, Verified 01/01/23 08:05 swelling in legs oxycodone [Percocet] Allergy Unknown itchy, Verified 01/01/23 08:05 swelling in legs metformin AdvReac Unknown not able Verified 01/01/23 08:05 to swallow the pill - its too big. Review of Systems Review of Systems: Yes all other systems are reviewed and are negative [facility] Past Medical History Medical History Uncontrolled diabetes mellitus with hyperglycemia Sciatica Hyperlipemia HTN (hypertension) Hx of screening mammography Normal pelvic exam Anxiety Rash of both feet Acute flank pain Annual physical exam Normal Pap smear Anemia Sleep apnea Morbid obesity Dysphagia IDDM (insulin dependent diabetes mellitus) Surgical History Hx of shoulder surgery Hx of wisdom tooth extraction History of tonsillectomy and adenoidectomy Hx of cholecystectomy Family History Family History Father CVD (cardiovascular disease) Diabetes mellitus Substance use disorder Mother No problems noted. Paternal Grandmother Diabetes mellitus Paternal Grandfather Diabetes mellitus Sister Cancer of thyroid Maternal Grandmother Mental health disorder Social History Social History Housing: Apartment Alcohol intake: current Alcohol intake frequency: holidays/special occasions only Patient Tobacco Use Status: Former Tobacco user Quit Date: 2002 Smoked in Last 30 Days: No e-Cigarette/Vaping Use: Never Used Advance Directives: No Advance Directives Information Provided: No Current occupational status: employed Cognitive needs: No Hearing needs: No Vision needs: Yes Physical Exam Vital Signs: Vital Signs: Last Vital Signs Temp 98.7 F 06/30/23 18:02 Pulse 87 07/01/23 01:54 Resp 16 07/01/23 01:54 BP 134/53 L 07/01/23 01:54 Pulse Ox 96 07/01/23 01:54 O2 Del Method Room Air 07/01/23 01:54 BMI result Body Mass Index 57.6 Appearance: Alert. Oriented X3. No acute distress. Eyes: PERRLA, No Nystagmus ENT: Pharynx normal. Oral Mucosa moist Neck: Normal inspection. Neck supple. No rigidity Kernig sign negative no bruits no temporal artery tenderness CVS: Normal heart rate and rhythm. Pulses normal. Respiratory: No respiratory distress. Equal air entry bilateral, no wheezing/rales/rhonchi Abdomen: Soft and nontender. Bowel sounds are present, no mass palpable, Skin: Skin warm and dry. Normal skin color. Normal skin turgor. Extremities: No lower extremity edema. No calf tenderness Neuro: Oriented X 3. No motor deficit. No sensory deficit.No cerebellar signs , cranial nerves II-XII intact Medications Administered Discontinued Medications Generic Name Dose Route Start Last Admin Trade Name Freq PRN Reason Stop Dose Admin Diphenhydramine HCl 50 mg 07/01/23 01:37 07/01/23 01:41 Diphenhydramine Hcl 50 Mg/Ml Vial IVPUSH 07/01/23 01:38 50 mg ONCE ONE Administration Iohexol 70 ml 07/01/23 00:40 07/01/23 00:41 Iohexol 350 Mg/Ml 100 Ml Infus..Btl IV 07/01/23 00:41 70 ml ONCE ONE Administration Ketorolac Tromethamine 30 mg 07/01/23 01:36 07/01/23 01:41 Ketorolac Tromethamine 30 Mg/Ml Vial IVPUSH 07/01/23 01:37 30 mg ONCE ONE Administration Morphine Sulfate 4 mg 06/30/23 23:33 06/30/23 23:59 Morphine Sulfate 4 Mg/Ml Cartridge IVPUSH 06/30/23 23:34 4 mg ONCE ONE Administration Protocol Ondansetron HCl 4 mg 06/30/23 23:33 06/30/23 23:59 Ondansetron Hcl 4 Mg/2 Ml Vial IVPUSH 06/30/23 23:34 4 mg ONCE ONE Administration Medical Decision Making Medical Decision Making [facility] Narrative: Patient with occipital headache etiology not very clear CT head and CTA head and neck negative for acute patient responded to Toradol and Benadryl discharge patient home on Fioricet Differential Diagnosis Differential Diagnoses: The differential diagnosis associated with the presentation includes Migraine headache/subarachnoid bleed/tension headache Admission/Observation Consideration of admission/observation: Escalation of care including admission/observation considered Lab Data [facility] Lab Attestation statement: I reviewed the patient's lab results. 06/30/23 18:32 06/30/23 18:32 Labs: Lab Results 06/30/23 Range/Units 18:32 WBC 12.2 H (4.8-10.8) X10*3/uL RBC 4.57 (4.20-5.50) X10*6/uL Hgb 12.0 (12.0-16.0) g/dl Hct 38.1 (37.0-47.0) % MCV 83.4 (80.0-98.0) fL MCH 26.3 L (27.0-33.0) pg MCHC 31.5 (31.0-35.0) g/dl RDW 15.8 (11.0-16.0) % Plt Count 332 (160-400) X10*3/uL MPV 9.2 L (9.4-12.3) fL Immature Gran % (Auto) 0.7 H (0.0-0.4) % Neut % (Auto) 71.6 (45-73) % Lymph % (Auto) 17.3 L (20-40) % Foster % (Auto) 8.0 (2-11) % Eos % (Auto) 1.9 (0-4) % Baso % (Auto) 0.5 (0-2) % Lymph # (Auto) 2.1 (1.2-4.9) X10*3/uL Foster # (Auto) 1.0 (0.1-1.2) X10*3/uL Eos # (Auto) 0.2 (0.0-0.4) X10*3/uL Baso # (Auto) 0.1 (0.0-0.2) X10*3/uL Abs Immat Gran (auto) 0.08 H (0.00-0.03) X10*3/uL Absolute Neuts (auto) 8.8 H (2.0-8.3) x10*3/uL Absolute Nucleated RBC 0.000 (0.0-0.012) X10*3/uL Nucleated RBC % (auto) 0.0 (0.0-0.2) /100WBC Sodium 141 (135-145) mmol/L Potassium 4.1 (3.3-5.1) mmol/L Chloride 108 (96-108) mmol/L Carbon Dioxide 25 (22-29) mmol/L Anion Gap 12 (12-20) BUN 12 (9-16) mg/dL Creatinine 0.80 (0.5-1.4) mg/dL Estim Creat Clear Calc 124.8 Estimated GFR > 60 Random Glucose 120 H (60-115) mg/dL Calcium 9.0 (8.4-10.2) mg/dL Total Bilirubin 0.2 (0.0-1.0) mg/dL AST 14 (5-31) U/L ALT 17 (0-31) U/L Alkaline Phosphatase 79 (39-117) U/L Total Protein 7.0 (6.5-8.0) g/dL Albumin 3.7 (3.5-5.0) g/dL Independent Interpretation I performed an independent interpretation of an: CT Scan Interpretation: Negative Radiology Impression Discussion of test interpretation with radiology: I have reviewed the radiologist's reading. Discharge Plan Discharge Clinical Impression: Headache Patient Disposition: Still a Patient Prescriptions: No Action albuterol sulfate 90 mcg/actuation HFA aerosol inhaler 1 puff PO QID PRN (Reason: for wheezing) Qty: 7 4RF (DME) lancets [FreeStyle Lancets] 28 gauge misc See Rx Instructions .Route Qty: 300 1RF Rx Instructions: test blood sugar 3 times per day (DME) CPAP Machine/Device Device See Rx Instructions .Route Qty: 1 0RF Rx Instructions: including supplies-pressure setting 13cm H2O with AirFit 20 small mask (DME) FreeStyle Sheryl 2 [place] Misc See Rx Instructions .Route Qty: 1 0RF Rx Instructions: As directed pantoprazole 40 mg tablet,delayed release (DR/EC) 40 mg PO BID Qty: 180 3RF (DME) FreeStyle Sheryl 2 Sensor Kit See Rx Instructions .Route Qty: 6 1RF Rx Instructions: As directed to test blood sugar 4 times per day insulin lispro [Humalog KwikPen Insulin] 100 unit/mL insulin pen 14 unit subcut TID Qty: 15 4RF atorvastatin 20 mg tablet 20 mg PO DAILY Qty: 30 3RF Jardiance 25 mg tablet 25 mg PO DAILY Qty: 30 4RF olmesartan 5 mg tablet 10 mg PO DAILY Lantus U-100 Insulin 100 unit/mL solution 50 unit subcut DAILY Ozempic 1 mg/dose (4 mg/3 mL) pen injector 1 mg subcut QWEEK Qty: 3 5RF
[2023-06-30 23:45] VITALS: BP 148/77; PULSE 77; RESP 20; O2SAT 98
[2023-06-30] MEDS: Morphine Sulfate 4 MG/ML CARTRIDGE IVPUSH (23:59)
[2023-06-30] MEDS: ondansetron HCL 4 MG/2 ML VIAL IVPUSH (23:59)
[2023-07-01] MEDS: iohexoL 350 MG/ML 100 ML INFUS..BTL 70 ML IV (00:41)
[2023-07-01] MEDS: Ketorolac Tromethamine 30 MG/ML VIAL IVPUSH (01:41)
[2023-07-01] MEDS: diphenhydrAMINE HCL 50 MG/ML VIAL IVPUSH (01:41)
[2023-07-01 01:54] VITALS: BP 134/53; PULSE 87; RESP 16; O2SAT 96
[2023-07-01 04:11] VITALS: BP 117/49; PULSE 82; RESP 16; O2SAT 97
[2023-07-01] MEDS: HYDROmorphone HCl 1 MG/ML SYRINGE IVPUSH (05:00)
[2023-07-01 05:29] VITALS: BP 105/43; PULSE 75; RESP 12; TEMP 36.7; O2SAT 94
== END 2023-07-01 05:35 | disposition home or self-care (01) ==
PROVIDERS: Physician Assistant; Emergency Provider Internal Medicine; PCP Internal Medicine
DX: M54.2 Cervicalgia (principal); R51.9 Headache, unspecified; Z79.899 Other long term (current) drug therapy
CPT/HCPCS: 36415; 70450; 70496; 70498; 72125; 80053; 85025; 96374; 96375; 99284; J1170; J1200; J1885; J2270; J2405; Q9967

== ENCOUNTER 2023-07-19 11:22 | Outpatient (AMB) | payer OTHER, SELFPAY ==
--- NOTE | 2023-07-19 11:29 | MHC.PC.OV ---
Vital Signs 07/19/23 11:30 Height 5 ft 2 in Weight 308 lb BMI 56.3 BP 124/66 Blood Pressure Location Lt brachial Position Sitting Pulse 89 Pulse Source Pulse Oximeter Pulse Oximetry (%) 95 Oxygen Delivery Method Room Air Intake Visit Reasons: Nori Lilly ER follow up/strep throat Intake Note: Pt is here today for ER follow up visit. Allergies acetaminophen [Percocet] Allergy (Unknown, Verified 07/19/23 11:32) itchy, swelling in legs oxycodone [Percocet] Allergy (Unknown, Verified 07/19/23 11:32) itchy, swelling in legs metformin Adverse Reaction (Unknown, Verified 07/19/23 11:32) not able to swallow the pill - its too big. Medication List - Last Reconciled 07/19/23 by Belkys Buenrostro MD albuterol sulfate 90 mcg/actuation 1 puff PO QID PRN atorvastatin 20 mg PO DAILY budesonide-formoterol 160-4.5 mcg/actuation (Symbicort) inhalation CPAP (CPAP Machine/Device) including supplies-pressure setting 13cm H2O with AirFit 20 small mask cyclobenzaprine 10 mg PO TID PRN empagliflozin (Jardiance) 25 mg PO DAILY flash glucose scanning reader (FreeStyle Sheryl 2 [place]) As directed flash glucose sensor (FreeStyle Sheryl 2 Sensor kit) As directed to test blood sugar 4 times per day Humalog KwikPen Insulin (insulin lispro) 14 units (0.14 mL) subcut TID NS insulin glargine (Lantus U-100 Insulin) 50 units subcut DAILY lancets (FreeStyle Lancets) test blood sugar 3 times per day olmesartan 10 mg PO DAILY pantoprazole 40 mg PO BID Tobacco use date assessed: 07/19/23 Dental Screening Dental Screen Date: 07/19/23 Did you have a dental visit in the last 12 months?: Yes Did you have a dental problem in the last 6 months where you did not have access to dental care?: No Was dental information given to patient?: Patient has dentist HPI Nori Lilly ER follow up/strep throat HPI Details Pt presents for f/u of of ER visit. She was treated for streptococcal infection which resolved. Patient reports insulin-dependent diabetes stable but worse since she can not refill her Mounjaro due to high momin. Hypertension and hyperlipidemia are controlled on current medications. [facility] Medical History (Updated 07/19/23 @ 12:09 by Belkys Buenrostro MD) Sciatica Hyperlipemia HTN (hypertension) Hx of screening mammography Normal pelvic exam Anxiety Rash of both feet Acute flank pain Annual physical exam Normal Pap smear Anemia Sleep apnea Morbid obesity Dysphagia IDDM (insulin dependent diabetes mellitus) Surgical History Hx of shoulder surgery Hx of wisdom tooth extraction History of tonsillectomy and adenoidectomy Hx of cholecystectomy Family History Father CVD (cardiovascular disease) Diabetes mellitus Substance use disorder Mother No problems noted. Paternal Grandmother Diabetes mellitus Paternal Grandfather Diabetes mellitus Sister Cancer of thyroid Maternal Grandmother Mental health disorder Social History Housing: Apartment Alcohol intake: current Alcohol intake frequency: holidays/special occasions only Patient Tobacco Use Status: Former Tobacco user Quit Date: 2002 e-Cigarette/Vaping Use: Never Used Current occupational status: employed Cognitive needs: No Hearing needs: No Vision needs: Yes Questionnaire Thrive Questionnaire Date Thrive assessed: 09/07/22 AUDIT C Alcohol Use Questionnaire (AUDIT-C) 1. How often do you have a drink containing alcohol?: Monthly or less 2. How many drinks containing alcohol do you have on a typical day when you are drinking?: 1 or 2 3. How often do you have six or more drinks on one occasion?: Never Total Score: 1 MARE-7 AMB Questionnaire MARE-7 Date MARE - 7 assessed: 09/07/22 Source: Developed by Drs. bAiodun Saldaña, Soo Tong, Jaun Rousseau and colleagues, with an educational gualberto from [employer]. Review of Systems Const All systems reviewed & are unremarkable except as noted in HPI and below Reports no additional complaints Eyes Reports no additional complaints ENT Reports no additional complaints Card Reports no additional complaints Resp Reports no additional complaints GI Reports no additional complaints Physical exam (Primary Care) Vital Signs: Last Vital Signs Pulse 89 07/19/23 11:30 BP 124/66 07/19/23 11:30 Pulse Ox 95 07/19/23 11:30 Oxygen Delivery Method Room Air 07/19/23 11:30 BMI result Body Mass Index 56.3 Tobacco/Smoking Status: Tobacco use Status Tobacco use date assessed 07/19/23 07/19/23 11:35 Patient Tobacco Use Status Former Tobacco user 07/19/23 11:35 e-Cigarette/Vaping Use Never Used 07/19/23 11:35 Thrive Assessment: Date of Thrive Assessment Date Thrive assessed 09/07/22 07/19/23 11:35 Const General: no acute distress HENMT Head: Yes normal to inspection Ears: hearing grossly normal bilaterally General nose exam: Normal external nose present Eyes General: appearance normal, both eyes and all related structures Neck Neck: Yes no lymphadenopathy and Yes supple Resp Effort & Inspection: normal respiratory effort Auscultation: clear to auscultation bilaterally Cardio Rhythm: regular rhythm Heart sounds: S1 normal heart sound present and S2 normal heart sound present Assessment and Plan Assessment & Plan (1) Sleep apnea: Comment: on Cpap Code(s): G47.30 - Sleep apnea, unspecified (2) Vitamin D deficiency: Code(s): E55.9 - Vitamin D deficiency, unspecified (3) Vitamin B12 deficiency: Code(s): E53.8 - Deficiency of other specified B group vitamins (4) Hyperlipemia: Code(s): E78.5 - Hyperlipidemia, unspecified Plan: Continue statin (5) HTN (hypertension): Code(s): I10 - Essential (primary) hypertension Plan: Continue olmesartan (6) Annual physical exam: Code(s): Z00.00 - Encounter for general adult medical examination without abnormal findings (7) Morbid obesity: Code(s): E66.01 - Morbid (severe) obesity due to excess calories (8) IDDM (insulin dependent diabetes mellitus): Comment: Difficulty swallowing metformin tablet, on Insulin and Jardiance. Patient could not tolerate Ozempic Trulicity was not effective and can not afford co-pay for [place] follow-up with Dr. Arreola every 6 months Plan: Follow-up with endocrinology. Physical and fasting labs before in August Orders: Orders Hemoglobin A1c 2 Months E53.8 - Deficiency of other specified B group vitamins, E55.9 - Vitamin D deficiency, unspecified, E66.01 - Morbid (severe) obesity due to excess calories, E78.5 - Hyperlipidemia, unspecified, G47.30 - Sleep apnea, unspecified, I10 - Essential (primary) hypertension, Z00.00 - Encounter for general adult medical examination without abnormal findings Lipid Panel 2 Months E53.8 - Deficiency of other specified B group vitamins, E55.9 - Vitamin D deficiency, unspecified, E66.01 - Morbid (severe) obesity due to excess calories, E78.5 - Hyperlipidemia, unspecified, G47.30 - Sleep apnea, unspecified, I10 - Essential (primary) hypertension, Z00.00 - Encounter for general adult medical examination without abnormal findings Vitamin D 25-OH Total 2 Months E53.8 - Deficiency of other specified B group vitamins, E55.9 - Vitamin D deficiency, unspecified Vitamin B12 and Folate 2 Months E53.8 - Deficiency of other specified B group vitamins, E55.9 - Vitamin D deficiency, unspecified Comprehensive [place]. Panel Fast 2 Months E53.8 - Deficiency of other specified B group vitamins, E55.9 - Vitamin D deficiency, unspecified, E66.01 - Morbid (severe) obesity due to excess calories, E78.5 - Hyperlipidemia, unspecified, G47.30 - Sleep apnea, unspecified, I10 - Essential (primary) hypertension, Z00.00 - Encounter for general adult medical examination without abnormal findings Microalbumin, Random (w Creat) 2 Months E53.8 - Deficiency of other specified B group vitamins, E55.9 - Vitamin D deficiency, unspecified, E66.01 - Morbid (severe) obesity due to excess calories, E78.5 - Hyperlipidemia, unspecified, G47.30 - Sleep apnea, unspecified, I10 - Essential (primary) hypertension, Z00.00 - Encounter for general adult medical examination without abnormal findings UA w Microscopic 2 Months E53.8 - Deficiency of other specified B group vitamins, E55.9 - Vitamin D deficiency, unspecified, E66.01 - Morbid (severe) obesity due to excess calories, E78.5 - Hyperlipidemia, unspecified, G47.30 - Sleep apnea, unspecified, I10 - Essential (primary) hypertension, Z00.00 - Encounter for general adult medical examination without abnormal findings Complete Blood Count Auto Diff 2 Months E53.8 - Deficiency of other specified B group vitamins, E55.9 - Vitamin D deficiency, unspecified, E66.01 - Morbid (severe) obesity due to excess calories, E78.5 - Hyperlipidemia, unspecified, G47.30 - Sleep apnea, unspecified, I10 - Essential (primary) hypertension, Z00.00 - Encounter for general adult medical examination without abnormal findings TSH reflex Free T4 2 Months E53.8 - Deficiency of other specified B group vitamins, E55.9 - Vitamin D deficiency, unspecified, E66.01 - Morbid (severe) obesity due to excess calories, E78.5 - Hyperlipidemia, unspecified, G47.30 - Sleep apnea, unspecified, I10 - Essential (primary) hypertension, Z00.00 - Encounter for general adult medical examination without abnormal findings Coding Level of Care Code Est Pt Level 4 (44228) Diagnoses Sleep apnea G47.30 Vitamin D deficiency E55.9 Vitamin B12 deficiency E53.8 Hyperlipemia E78.5 HTN (hypertension) I10 Annual physical exam Z00.00 Morbid obesity E66.01 IDDM (insulin dependent diabetes mellitus)
[2023-07-19 11:30] VITALS: BP 124/66; PULSE 89; O2SAT 95; BMI 56.3
== END 2023-07-19 12:11 | disposition home or self-care (01) ==
PROVIDERS: PCP Internal Medicine; Visit Provider Internal Medicine
DX: G47.30 Sleep apnea, unspecified (principal); E66.01 Morbid (severe) obesity due to excess calories; Z68.43 Body mass index [BMI] 50.0-59.9, adult; E55.9 Vitamin D deficiency, unspecified; E53.8 Deficiency of other specified B group vitamins; E78.5 Hyperlipidemia, unspecified; I10 Essential (primary) hypertension
CPT/HCPCS: 99214

== ENCOUNTER 2023-09-04 07:08 | Outpatient (REF) | payer OTHER, SELFPAY ==
[2023-09-04 10:31] LABS: MANUAL DIFF FLAG NO
[2023-09-04 10:34] LABS: Appearance Urine Clear; Color Urine Yellow; Glucose Urine UA >=1000 mg/dL (Negative); Leukocyte Esterase Urine Negative (Negative); Nitrite Urine Negative (Negative); PH 5.5 (5.0-9.0); Specific Gravity - Urine >= 1.030 (1.005-1.025); UMIC TRIGGER UA YES; Urine Blood Moderate (2+) (Negative); Urine Ketones Negative (Negative); Urine Protein Negative (Neg-Trace)
[2023-09-04 10:50] LABS: Basophils Percent Auto 0.6 % (0-2); Eosinophils Absolute Auto 0.2 X10*3/uL (0.0-0.4); Eosinophils Percent Auto 3.4 % (0-4); Hematocrit 37.6 % (37.0-47.0); Hemoglobin 11.4 g/dl (12.0-16.0); Imm Gran Abs Auto 0.04 X10*3/uL (0.00-0.03); Imm Gran Pct Auto 0.6 % (0.0-0.4); Lymphocytes Absolute Auto 1.7 X10*3/uL (1.2-4.9); Lymphocytes Percent Auto 23.8 % (20-40); Mean Corpuscular HGB Conc 30.3 g/dl (31.0-35.0); Mean Corpuscular Hemoglobin 25.6 pg (27.0-33.0); Mean Corpuscular Volume 84.5 fL (80.0-98.0); Mean Platelet Volume 9.8 fL (9.4-12.3); Monocytes Absolute Auto 0.5 X10*3/uL (0.1-1.2); Monocytes Percent Auto 6.6 % (2-11); Neutrophils Absolute Auto 4.6 x10*3/uL (2.0-8.3); Platelet Count 304 X10*3/uL (160-400); Red Blood Count 4.45 X10*6/uL (4.20-5.50); Red Cell Distribution Width 15.9 % (11.0-16.0); White Blood Count 7.1 X10*3/uL (4.8-10.8)
[2023-09-04 11:04] LABS: Bacteria Urine 2+ (None Seen); Hyaline Casts Urine 0-2 /LPF (0-2); RBC Urine 0-2 /HPF (0-2)
[2023-09-04 11:10] LABS: Alanine Aminotransferase 19 U/L (0-31); Albumin Level 3.8 g/dL (3.5-5.0); Alkaline Phosphatase 80 U/L (39-117); Anion Gap 13 (12-20); Aspartate Amino Transferase 14 U/L (5-31); Bilirubin Total 0.3 mg/dL (0.0-1.0); Blood Urea Nitrogen 14 mg/dL (9-16); Calcium 8.8 mg/dL (8.4-10.2); Carbon Dioxide 24 mmol/L (22-29); Chloride 108 mmol/L (96-108); Cholesterol 120 mg/dL (<200); Estimated Glomerular Filt Rate > 60; Glucose Fasting 141 mg/dL (60-99); HDL Cholesterol 47 mg/dL (>40); LDL Cholesterol Calculated 63 mg/dL (<100); Sodium 141 mmol/L (135-145); Total Protein 6.7 g/dL (6.5-8.0); Triglycerides 52 mg/dL (<150)
[2023-09-04 11:11] LABS: TSH reflex Free T4 2.26 uIU/mL (0.32-4.0)
[2023-09-04 11:42] LABS: Estimated Average Glucose 146 mg/dL; Hemoglobin A1c % 6.7 % (<6.0)
[2023-09-04 11:59] LABS: Creatinine Urine 75.29 mg/dL; Microalbum/Creatinine Ratio Ur 11.9 ug/mg cr (<30)
[2023-09-04 13:53] LABS: Folate 9.1 ng/mL (> or = 4.0)
[2023-09-04 19:59] LABS: Vitamin B12 481 pg/mL (200-900)
== END 2023-09-04 07:09 | disposition home or self-care (01) ==
LOC: HO.HMGCLDS 07:08
PROVIDERS: PCP Internal Medicine; Visit Provider Internal Medicine
DX: Z00.00 Encounter for general adult medical examination without abnormal findings (principal); E66.01 Morbid (severe) obesity due to excess calories; I10 Essential (primary) hypertension; E78.5 Hyperlipidemia, unspecified; E55.9 Vitamin D deficiency, unspecified; E53.8 Deficiency of other specified B group vitamins; G47.30 Sleep apnea, unspecified
CPT/HCPCS: 36415; 80053; 80061; 81001; 82043; 82306; 82570; 82607; 82746; 83036; 84443; 85025

== ENCOUNTER 2023-09-11 07:54 | Outpatient (AMB) | payer OTHER, SELFPAY ==
[2023-09-11 08:04] VITALS: BP 128/74; PULSE 82; O2SAT 98; BMI 57.1
--- NOTE | 2023-09-11 08:04 | A.OFFPC_ITS ---
Vital Signs 09/11/23 08:04 Height 5 ft 2 in Weight 312 lb BMI 57.1 BP 128/74 Blood Pressure Location Lt brachial Position Sitting Pulse 82 Pulse Source Pulse Oximeter Pulse Oximetry (%) 98 Oxygen Delivery Method Room Air Intake Visit Reasons: PE Intake Note: Pt is here today for PE. Allergies acetaminophen [Percocet] Allergy (Unknown, Verified 09/11/23 08:06) itchy, swelling in legs oxycodone [Percocet] Allergy (Unknown, Verified 09/11/23 08:06) itchy, swelling in legs metformin Adverse Reaction (Unknown, Verified 09/11/23 08:06) not able to swallow the pill - its too big. Medication List - Last Reconciled 09/11/23 by Belkys Buenrostro MD albuterol sulfate 90 mcg/actuation 1 puff PO QID PRN atorvastatin 20 mg PO DAILY budesonide-formoterol 160-4.5 mcg/actuation (Symbicort) inhalation cholecalciferol (vitamin D3) 125 mcg PO DAILY CPAP (CPAP Machine/Device) including supplies-pressure setting 13cm H2O with AirFit 20 small mask cyclobenzaprine 10 mg PO TID PRN empagliflozin (Jardiance) 25 mg PO DAILY flash glucose scanning reader (FreeStyle Sheryl 2 [place]) As directed flash glucose sensor (FreeStyle Sheryl 2 Sensor kit) As directed to test blood sugar 4 times per day insulin glargine (Lantus U-100 Insulin) 50 units (0.5 mL) subcut DAILY insulin lispro (Humalog KwikPen (U-100) Insulin) 20 units subcut TID lancets (FreeStyle Lancets) test blood sugar 3 times per day olmesartan 10 mg PO DAILY pantoprazole 40 mg PO BID Tobacco use date assessed: 09/11/23 Dental Screening Dental Screen Date: 09/11/23 Did you have a dental visit in the last 12 months?: Yes Did you have a dental problem in the last 6 months where you did not have access to dental care?: No Was dental information given to patient?: Patient has dentist HPI PE HPI Details Pt presents for PE. She can not afford a high co-pay for Mounjaro and reports increased fasting blood glucose reading since stopped taking it. [facility] Medical History Sciatica Hyperlipemia HTN (hypertension) Hx of screening mammography Normal pelvic exam Anxiety Rash of both feet Acute flank pain Annual physical exam Normal Pap smear Anemia Sleep apnea Morbid obesity Dysphagia IDDM (insulin dependent diabetes mellitus) Surgical History Hx of shoulder surgery Hx of wisdom tooth extraction History of tonsillectomy and adenoidectomy Hx of cholecystectomy Family History Father CVD (cardiovascular disease) Diabetes mellitus Substance use disorder Mother No problems noted. Paternal Grandmother Diabetes mellitus Paternal Grandfather Diabetes mellitus Sister Cancer of thyroid Maternal Grandmother Mental health disorder Social History Housing: Apartment Alcohol intake: current Alcohol intake frequency: holidays/special occasions only Patient Tobacco Use Status: Former Tobacco user Quit Date: 2002 e-Cigarette/Vaping Use: Never Used service: No Current occupational status: employed Cognitive needs: No Hearing needs: No Vision needs: Yes Questionnaire Thrive Questionnaire Date Thrive assessed: 09/07/22 AUDIT C Alcohol Use Questionnaire (AUDIT-C) 1. How often do you have a drink containing alcohol?: Monthly or less 2. How many drinks containing alcohol do you have on a typical day when you are drinking?: 1 or 2 3. How often do you have six or more drinks on one occasion?: Never Total Score: 1 MARE-7 AMB Questionnaire MARE-7 Date MARE - 7 assessed: 09/07/22 Source: Developed by Drs. Abiodun Saldaña, Soo Tong, Jaun Rousseau and colleagues, with an educational gualberto from 9+. Review of Systems Const All systems reviewed & are unremarkable except as noted in HPI and below Reports no additional complaints Eyes Reports no additional complaints ENT Reports no additional complaints Card Reports no additional complaints Resp Reports no additional complaints GI Reports no additional complaints Reports no additional complaints Physical exam (Primary Care) Vital Signs: Last Vital Signs Pulse 82 09/11/23 08:04 BP 128/74 09/11/23 08:04 Pulse Ox 98 09/11/23 08:04 Oxygen Delivery Method Room Air 09/11/23 08:04 BMI result Body Mass Index 57.1 Tobacco/Smoking Status: Tobacco use Status Tobacco use date assessed 09/11/23 09/11/23 08:10 Patient Tobacco Use Status Former Tobacco user 09/11/23 08:10 e-Cigarette/Vaping Use Never Used 09/11/23 08:10 Thrive Assessment: Date of Thrive Assessment Date Thrive assessed 09/07/22 09/11/23 08:10 Const General: no acute distress HENMT Head: Yes normal to inspection Ears: hearing grossly normal bilaterally Face and sinus: Yes normal facial exam Mouth: Normal oral and palatal mucosa present Eyes General: appearance normal, both eyes and all related structures Neck Neck: Yes no lymphadenopathy and Yes supple Resp Effort & Inspection: normal respiratory effort Auscultation: clear to auscultation bilaterally Cardio Rhythm: regular rhythm Heart sounds: S1 normal heart sound present and S2 normal heart sound present GI Inspection: Yes normal to inspection Palpation (GI): Soft to palpation Percussion: Yes normal to percussion Auscultation: normal bowel sounds Assessment and Plan Assessment & Plan (1) Morbid obesity: Code(s): E66.01 - Morbid (severe) obesity due to excess calories Plan: Decrease caloric intake increase physical activity discussed with the patient. (2) HTN (hypertension): Code(s): I10 - Essential (primary) hypertension Plan: Continue current medications (3) Hyperlipemia: Code(s): E78.5 - Hyperlipidemia, unspecified Plan: Continue statin (4) IDDM (insulin dependent diabetes mellitus): Comment: Difficulty swallowing metformin tablet, on Insulin and Jardiance. Patient could not tolerate Ozempic Trulicity was not effective and can not afford co-pay for Mounbonilla, follow-up with Dr. Arreola every 6 months Plan: A1c is 6.7, ADA diet increase physical activity weight loss discussed with the patient. She will try to get a discount coupon for Mounjaro online and restart at 7.5 mg weekly. Patient has a follow-up appointment with the pre sales technical engineer next month (5) Annual physical exam: Code(s): Z00.00 - Encounter for general adult medical examination without abnormal findings Plan: Well-balanced diet regular physical activity discussed with the patient. She will call collet making machine operator for Pap smear and is up-to-date with the mammogram. Orders: Orders Hemoglobin A1c 6 Months E66.01 - Morbid (severe) obesity due to excess calories, E78.5 - Hyperlipidemia, unspecified, I10 - Essential (primary) hypertension Complete Blood Count Auto Diff 6 Months E66.01 - Morbid (severe) obesity due to excess calories, E78.5 - Hyperlipidemia, unspecified, I10 - Essential (primary) hypertension Microalbumin, Random (w Creat) 6 Months E66.01 - Morbid (severe) obesity due to excess calories, E78.5 - Hyperlipidemia, unspecified, I10 - Essential (primary) hypertension Hemoglobin A1c 1 Year E78.5 - Hyperlipidemia, unspecified, I10 - Essential (primary) hypertension Lipid Panel 1 Year E55.9 - Vitamin D deficiency, unspecified, E78.5 - Hyperlipidemia, unspecified, I10 - Essential (primary) hypertension Complete Blood Count Auto Diff 1 Year E55.9 - Vitamin D deficiency, unspecified, E78.5 - Hyperlipidemia, unspecified, I10 - Essential (primary) hypertension Vitamin D 25-OH Total 1 Year E55.9 - Vitamin D deficiency, unspecified, E78.5 - Hyperlipidemia, unspecified, I10 - Essential (primary) hypertension Microalbumin, Random (w Creat) 1 Year E55.9 - Vitamin D deficiency, unspecified, E78.5 - Hyperlipidemia, unspecified, I10 - Essential (primary) hypertension Comprehensive [place]. Panel Fast 6 Months E66.01 - Morbid (severe) obesity due to excess calories, E78.5 - Hyperlipidemia, unspecified, I10 - Essential (primary) hypertension Lipid Panel 6 Months E66.01 - Morbid (severe) obesity due to excess calories, E78.5 - Hyperlipidemia, unspecified, I10 - Essential (primary) hypertension Comprehensive [place]. Panel Fast 1 Year E78.5 - Hyperlipidemia, unspecified, I10 - Essential (primary) hypertension Medications: New triamcinolone acetonide 0.1% 1 appl topical DAILY 80 grams 2RF Mounjaro (tirzepatide) 7.5 mg (0.5 mL) subcut QWEEK 6 mL 0RF NS blood-glucose sensor ([employer] G7 Sensor device) As directed 3 ea 0RF Changed From Humalog KwikPen Insulin (insulin lispro) 14 units (0.14 mL) subcut TID 15 mL 4RF NS To insulin lispro (Humalog KwikPen (U-100) Insulin) 20 units subcut TID Coding Level of Care Code Est Pt Prev Care 40-64y(41750) Diagnoses Morbid obesity E66.01 HTN (hypertension) I10 Hyperlipemia E78.5 IDDM (insulin dependent diabetes mellitus) Annual physical exam Z00.00
== END 2023-09-11 09:32 | disposition home or self-care (01) ==
PROVIDERS: Visit Provider Internal Medicine
DX: Z00.00 Encounter for general adult medical examination without abnormal findings (principal); E66.01 Morbid (severe) obesity due to excess calories; Z68.43 Body mass index [BMI] 50.0-59.9, adult; I10 Essential (primary) hypertension; E78.5 Hyperlipidemia, unspecified
CPT/HCPCS: 99396

== ENCOUNTER 2023-10-08 07:50 | Outpatient (AMB) | payer OTHER, SELFPAY ==
--- NOTE | 2023-10-08 07:57 | A.OFFVIS_ITS ---
Vital Signs 10/08/23 07:58 Height 5 ft 2 in Weight 310 lb 13.628 oz BMI 56.8 BP 128/52 L Blood Pressure Location Lt brachial Position Sitting Pulse 81 Pulse Source Pulse Oximeter Intake Visit Reasons: f/u Type 2 DM Intake Note: Patient present today to follow up on Type 2 Diabetes Mellitus. Last Diabetic Eye exam: 10/2022 Last Podiatry Visit: 11/2022 Random Glucose: 179 mg/dl HgA1C: 6.7% 09/04/2023 Metal Or Wood Blocker Required: No Accompanied by: Self / Same As Patient Allergies acetaminophen [Percocet] Allergy (Unknown, Verified 10/08/23 08:03) itchy, swelling in legs oxycodone [Percocet] Allergy (Unknown, Verified 10/08/23 08:03) itchy, swelling in legs metformin Adverse Reaction (Unknown, Verified 10/08/23 08:03) not able to swallow the pill - its too big. HPI Comments Details: 42 YO F who is seen in consultation for T2DM at the request of PCP. Initially diagnosed with T2DM in 2012. Was initially started on treatment with metformin.Can't swallow Current regimen Mounjaro 7.5 mg q wkly stooped in october due to insurance coverage . Took Trulicity in past and Ozempic but couldn't tolerate because Gi sx Jardiance 25 mg QD Lantus 50 units Humalog 20 units in AM and 20 units before lunch and dinner Per the CGM / Sheryl CGMS is active 96 % of time . data the patient's predicted A1C is 7.2 % . Avg glucose is 162 . Variability of 16.2 % The patient's blood sugars were in target 76% % of the time, above target 24 % of the time, and below target 0% % of the time Pattern shows post-lunch and post-dinner hyperglycemia Reports no low sugars . . Family history of T2DM in Paternal side . Has eyes checked yearly, last eye exam has appt next mo , denies retinopathy. Denies neuropathy, last foot exam couple of wks ago , sees podiatry. Denies nephropathy, on MEENAKSHI/ARB. Has HLD, on statin. Denies CAD. Had diabetes education when first diagnosed Obesity during teen yrs. Have sleep apnea . CPAP didn't work. Did well On Trim Healthy Mama lost 50 lbs Tried OTC meds PFSH Medical History Sciatica Hyperlipemia HTN (hypertension) Hx of screening mammography Normal pelvic exam Anxiety Rash of both feet Acute flank pain Annual physical exam Normal Pap smear Anemia Sleep apnea Morbid obesity Dysphagia IDDM (insulin dependent diabetes mellitus) Surgical History Hx of shoulder surgery Hx of wisdom tooth extraction History of tonsillectomy and adenoidectomy Hx of cholecystectomy Family History Father CVD (cardiovascular disease) Diabetes mellitus Substance use disorder Mother No problems noted. Paternal Grandmother Diabetes mellitus Paternal Grandfather Diabetes mellitus Sister Cancer of thyroid Maternal Grandmother Mental health disorder Social History Housing: Apartment Alcohol intake: current Alcohol intake frequency: holidays/special occasions only Patient Tobacco Use Status: Former Tobacco user Quit Date: 2002 e-Cigarette/Vaping Use: Never Used service: No Current occupational status: employed Cognitive needs: No Hearing needs: No Vision needs: Yes Physical Exam Absence of Cushingoid features. Absence of acromegalic features. Neck exam reveals nl size thyroid about 15 gms. No thyroid nodules palpable. No carotid bruits present. Lungs CTA. Heart S1 S2, Reg R/R. No M/R/ G. Skin exam reveals absence of vitiligo but presence of acanthosis nigricans. Abdominal exam reveals Soft NT/ND with NA BS. No organomegaly present. Neck Other: . Extrem Other: Visual exam of foot performed. No ulcerations or open lesions. No onchomycosis, no callouses.Pulses 2 + distally Sensation intact to monofilament exam. Vibratory sensation sensed is intact with 128 Hz tuning fork Assessment & Plan Assessment & Plan (1) IDDM (insulin dependent diabetes mellitus): Comment: Difficulty swallowing metformin tablet, on Insulin and Jardiance. Patient could not tolerate Ozempic Trulicity was not effective and can not afford co-pay for Mounjaro, follow-up with Dr. Arreola every 6 months Category: Medical (2) Uncontrolled diabetes mellitus with hyperglycemia: Code(s): E11.65 - Type 2 diabetes mellitus with hyperglycemia Category: Medical Plan This is a 42-year-old white female with a history of type 2 diabetes and morbid obesity being treated with Mounjaro, Farxiga, basal -bolus insulin with excellent glycemic control and no known microvascular or macrovascular complications The plan is to attempt to reinitiate the Mounjaro at 2.5 mg Q weekly with titration based on availability.. At this point, patient is glycemic control is optimized and she returned back to the care of her primary care provider returned back to endocrinology should HbA1c deteriorate. If the Mounjaro is not available, patient was instructed to increase Lantus by 10 units every 3 or 4 days to keep point of care fasting <150. Medications: New tirzepatide (Mounjaro) 2.5 mg (0.5 mL) subcut QWEEK 4 weeks 2 mL 0RF Discontinued Mounjaro (tirzepatide) Discontinued Reason: Doctor's Order 7.5 mg (0.5 mL) subcut QWEEK 6 mL 0RF NS Coding Level of Care Code Est Pt Level 4 (09271) Diagnoses IDDM (insulin dependent diabetes mellitus) Uncontrolled diabetes mellitus with hyperglycemia E11.65
[2023-10-08 07:58] VITALS: BP 128/52; PULSE 81; BMI 56.8
[2023-10-08 08:10] LABS: Glucose, Whole Blood 179 mg/dL (60-115)
== END 2023-10-08 08:21 | disposition home or self-care (01) ==
PROVIDERS: PCP Internal Medicine; Visit Provider Internal Medicine Endocrinology, Diabetes & Metabolism
DX: E11.65 Type 2 diabetes mellitus with hyperglycemia (principal)
CPT/HCPCS: 99214

== ENCOUNTER → 2023-10-08 07:50 | Outpatient (BNVA) | payer OTHER, SELFPAY | PROVIDERS: PCP Internal Medicine; Visit Provider Internal Medicine Endocrinology, Diabetes & Metabolism | DX: E11.65 Type 2 diabetes mellitus with hyperglycemia (principal); E66.01 Morbid (severe) obesity due to excess calories; Z68.43 Body mass index [BMI] 50.0-59.9, adult; Z79.4 Long term (current) use of insulin | CPT/HCPCS: 82947 ==

== ENCOUNTER 2024-01-03 06:02 | Outpatient (REF) | payer OTHER, SELFPAY ==
[2024-01-03 10:28] LABS: Alanine Aminotransferase 18 U/L (0-31); Albumin Level 3.8 g/dL (3.5-5.0); Alkaline Phosphatase 85 U/L (39-117); Anion Gap 13 (12-20); Aspartate Amino Transferase 13 U/L (5-31); Bilirubin Total 0.3 mg/dL (0.0-1.0); Blood Urea Nitrogen 16 mg/dL (9-16); Calcium 9.3 mg/dL (8.4-10.2); Carbon Dioxide 24 mmol/L (22-29); Chloride 106 mmol/L (96-108); Cholesterol 122 mg/dL (<200); Estimated Glomerular Filt Rate > 60; Glucose Fasting 125 mg/dL (60-99); HDL Cholesterol 44 mg/dL (>40); LDL Cholesterol Calculated 66 mg/dL (<100); Potassium 4.3 mmol/L (3.3-5.1); Sodium 139 mmol/L (135-145); Total Protein 6.7 g/dL (6.5-8.0); Triglycerides 60 mg/dL (<150)
[2024-01-03 11:14] LABS: Creatinine Urine 72.97 mg/dL; Microalbum/Creatinine Ratio Ur 16.4 ug/mg cr (<30)
[2024-01-03 12:11] LABS: Estimated Average Glucose 146 mg/dL; Hemoglobin A1C 152.3661 umol/L; Hemoglobin A1c % 6.7 % (<6.0)
== END 2024-01-03 06:03 | disposition home or self-care (01) ==
LOC: HO.HMGCLDS 06:02
PROVIDERS: PCP Internal Medicine; Visit Provider Internal Medicine
DX: E78.5 Hyperlipidemia, unspecified (principal); E66.01 Morbid (severe) obesity due to excess calories; Z13.1 Encounter for screening for diabetes mellitus
CPT/HCPCS: 36415; 80053; 80061; 82043; 82570; 83036

== ENCOUNTER 2024-01-14 08:36 | Outpatient (AMB) | payer OTHER, SELFPAY ==
[2024-01-14 08:37] VITALS: BP 118/68; PULSE 79; O2SAT 97; BMI 54.7
--- NOTE | 2024-01-14 08:37 | A.OFFPC_ITS ---
Vital Signs 01/14/24 08:37 Height 5 ft 2 in Weight 299 lb BMI 54.7 BP 118/68 Blood Pressure Location Rt brachial Position Sitting Pulse 79 Pulse Source Pulse Oximeter Pulse Oximetry (%) 97 Oxygen Delivery Method Room Air Intake Visit Reasons: DM followup Intake Note: Pt is here today for a follow up visit on DM. Allergies acetaminophen [Percocet] Allergy (Unknown, Verified 01/14/24 08:39) itchy, swelling in legs oxycodone [Percocet] Allergy (Unknown, Verified 01/14/24 08:39) itchy, swelling in legs metformin Adverse Reaction (Unknown, Verified 01/14/24 08:39) not able to swallow the pill - its too big. Medication List - Last Reconciled 01/14/24 by Belkys Buenrostro MD albuterol sulfate 90 mcg/actuation 1 puff PO QID PRN atorvastatin 20 mg PO DAILY blood-glucose sensor (DexManaged by Q G7 Sensor device) As directed budesonide-formoterol 160-4.5 mcg/actuation (Symbicort) inhalation cholecalciferol (vitamin D3) 125 mcg PO DAILY CPAP (CPAP Machine/Device) including supplies-pressure setting 13cm H2O with AirFit 20 small mask cyclobenzaprine 10 mg PO TID PRN empagliflozin (Jardiance) 25 mg PO DAILY flash glucose scanning reader (FreeStyle Sheryl 2 Amite) As directed flash glucose sensor (FreeStyle Sheryl 2 Sensor kit) As directed to test blood sugar 4 times per day Humalog KwikPen Insulin (insulin lispro) 14 units (0.14 mL) subcut TID NS insulin glargine (Lantus U-100 Insulin) 50 units (0.5 mL) subcut DAILY lancets (FreeStyle Lancets) test blood sugar 3 times per day montelukast 10 mg PO DAILY olmesartan 5 mg PO DAILY Ozempic (semaglutide) 2 mg (0.75 mL) subcut QWEEK NS pantoprazole 40 mg PO BID triamcinolone acetonide 0.1% 1 appl topical DAILY Tobacco use date assessed: 01/14/24 Dental Screening Dental Screen Date: 09/11/23 HPI DM followup HPI Details Pt presents for IDDM, HTN, chronic asthma. Patient reports increasing coughing and wheezing in the beginning of a fall season and in springtime. She has been using Symbicort and albuterol only as needed. Patient reports low blood glucose readings admit overnight around 1 AM. She usually takes 14 units before each meal regardless of before meal glucose readings. [facility] Medical History Sciatica Hyperlipemia HTN (hypertension) Hx of screening mammography Normal pelvic exam Anxiety Rash of both feet Acute flank pain Annual physical exam Normal Pap smear Anemia Sleep apnea Morbid obesity Dysphagia IDDM (insulin dependent diabetes mellitus) Surgical History Hx of shoulder surgery Hx of wisdom tooth extraction History of tonsillectomy and adenoidectomy Hx of cholecystectomy Family History Father CVD (cardiovascular disease) Diabetes mellitus Substance use disorder Mother No problems noted. Paternal Grandmother Diabetes mellitus Paternal Grandfather Diabetes mellitus Sister Cancer of thyroid Maternal Grandmother Mental health disorder Social History Housing: Apartment Alcohol intake: current Alcohol intake frequency: holidays/special occasions only Patient Tobacco Use Status: Former Tobacco user e-Cigarette/Vaping Use: Never Used service: No Current occupational status: employed Cognitive needs: No Hearing needs: No Vision needs: Yes Questionnaire PHQ-9 Over the last 2 weeks, how often have you been bothered by any of the following problems? 1. Little interest or pleasure in doing things: not at all 2. Feeling down, depressed, or hopeless: not at all 3. Trouble falling or staying asleep, or sleeping too much: not at all 4. Feeling tired or having little energy: more than half the days 5. Poor appetite or overeating: several days 6. Feeling bad about yourself - or that you are a failure or have let yourself or your family down: not at all 7. Trouble concentrating on things, such as reading the newspaper or watching television: not at all 8. Moving or speaking so slowly that other people could have noticed. Or the opposite - being so fidgety or restless that you have been moving around a lot more than usual: not at all 9. Thoughts that you would be better off or of hurting yourself in some way: not at all Total score: 3 Depression Screening Interpretation: Negative Depression Screening Done: Yes 23911 - PHQ-9 Billing: Yes Source: Developed by Drs. Abiodun Saldaña, Soo Tong, Jaun Rousseau and colleagues, with an educational gualberto from [employer]. Thrive Questionnaire Date Thrive assessed: 01/14/24 I am a: Patient What is your living situation today?: I have a steady place to live Within the past 12 months, did the food you bought not last and you didn't have the money to get more?: Never true Within the past 12 months, did you worry whether your food would run out before you got money to buy more?: Never true Do you have trouble paying for medicines?: I choose not to answer this question Do you have trouble getting transportation to medical appointments?: No Do you have trouble paying your heating and electricity bill?: No Do you have trouble taking care of your child, family member or friend?: No Do you have trouble with day-to-day activities such as bathing, preparing meals, shopping, managing finances, etc.?: No Are you currently unemployed and looking for a job?: No Are you interested in more education?: No Please select the resources that you would like help with: None Currently or been in a relationship where the following occur: No concerns reported THRIVE Score: 0 AUDIT C Alcohol Use Questionnaire (AUDIT-C) 1. How often do you have a drink containing alcohol?: Monthly or less 2. How many drinks containing alcohol do you have on a typical day when you are drinking?: 1 or 2 3. How often do you have six or more drinks on one occasion?: Never Total Score: 1 MARE-7 AMB Questionnaire MARE-7 Date MARE - 7 assessed: 01/14/24 Feeling nervous, anxious, or on edge: 1 = Several days Not being able to stop or control worryin = Several days Worrying too much about different things: 1 = Several days Trouble relaxin = Several days Being so restless that it is hard to sit still: 0 = Not at all Becoming easily annoyed or irritable: 1 = Several days Feeling afraid as if something awful might happen: 1 = Several days Total MARE-7 score (0-4 normal; 5-9 mild; 10-14 moderate; 15-21 severe): 6 Source: Developed by Drs. Abiodun Saldaña, Soo Tong, Jaun Rousseau and colleagues, with an educational gualberto from [employer]. MARE-7 Assessment Billing MARE-7 Assessment Tool: MARE-7 Assessment 60674 Review of Systems Const All systems reviewed & are unremarkable except as noted in HPI and below Eyes Reports no additional complaints Card Reports no additional complaints Resp Reports no additional complaints GI Reports no additional complaints Physical exam (Primary Care) Vital Signs: Last Vital Signs Pulse 79 01/14/24 08:37 BP 118/68 01/14/24 08:37 Pulse Ox 97 01/14/24 08:37 Oxygen Delivery Method Room Air 01/14/24 08:37 BMI result Body Mass Index 54.7 Tobacco/Smoking Status: Tobacco use Status Tobacco use date assessed 01/14/24 01/14/24 08:43 Patient Tobacco Use Status Former Tobacco user 01/14/24 08:43 e-Cigarette/Vaping Use Never Used 01/14/24 08:43 PHQ-9: PHQ-9 Score PHQ-9: Total score 3 01/14/24 08:43 Depression Screening Interpretation: Negative Thrive Assessment: Date of Thrive Assessment Date Thrive assessed 01/14/24 01/14/24 08:43 Currently or been in a relationship where the following occur: No concerns reported Const General: no acute distress HENMT Face and sinus: Yes normal facial exam Resp Effort & Inspection: normal respiratory effort Auscultation: clear to auscultation bilaterally Cardio Rhythm: regular rhythm Heart sounds: S1 normal heart sound present and S2 normal heart sound present GI Inspection: Yes normal to inspection Palpation (GI): Soft to palpation Assessment and Plan Assessment & Plan (1) IDDM (insulin dependent diabetes mellitus): Comment: Difficulty swallowing metformin tablet, on Insulin and Jardiance. Trulicity was not effective, she can not afford co-pay for [employer], Plan: A1c is 6.7, ADA diet increase exercise discussed with the patient. Follow-up in 3 months with a fasting labs before (2) Hyperlipemia: Code(s): E78.5 - Hyperlipidemia, unspecified Plan: Continue statin (3) HTN (hypertension): Code(s): I10 - Essential (primary) hypertension Plan: Continue olmesartan (4) Asthma: Comment: Bsdo-dev-nlzejsm antihistamines not effective for seasonal allergy Code(s): J45.909 - Unspecified asthma, uncomplicated Plan: Patient was advised to restart Symbicort at least once a day and montelukast will be added for seasonal allergies and asthma. Patient was advised to use albuterol inhaler as needed. Orders: Orders Hemoglobin A1c 3 Months I10 - Essential (primary) hypertension Comprehensive Hines. Panel Fast 3 Months E78.5 - Hyperlipidemia, unspecified Medications: New montelukast 10 mg PO DAILY 90 tabs 0RF Coding Level of Care Code Est Pt Level 4 (20596) Diagnoses IDDM (insulin dependent diabetes mellitus) Hyperlipemia E78.5 HTN (hypertension) I10 Asthma J45.909 Additional Codes MARE-7 Assessment Billing - MARE-7 Assessment Tool: MARE-7 Assessment 16489 ([id number])
== END 2024-01-14 09:10 | disposition home or self-care (01) ==
PROVIDERS: PCP Internal Medicine; Visit Provider Internal Medicine
DX: E78.5 Hyperlipidemia, unspecified (principal); I10 Essential (primary) hypertension; J45.909 Unspecified asthma, uncomplicated
CPT/HCPCS: 99214

== ENCOUNTER 2024-04-29 09:23 | Outpatient (REF) | payer OTHER, SELFPAY ==
--- NOTE | ~2024-04-29 | XR_ITS ---
EXAMINATION: XR SHOULDER LEFT CLINICAL INFORMATION: Pain in left shoulder M25.512. COMPARISON: XR Left shoulder 08/11/2020 TECHNIQUE: AP external rotation, Grashey, and scapular Y views of the left shoulder. FINDINGS: There is loss of glenohumeral and AC joint space with inferior spurring. No visible acute fracture, dislocation is subluxation seen. The soft tissues are normal. XR/XR shoulder LT min 2V IMPRESSION: Mild degenerative changes left shoulder joint. No visible acute fracture, dislocation or soft tissue abnormality. Electronically signed by: Siva Tony MD 06/04/2024 07:15 AM AJ
== END 2024-04-29 09:24 | disposition home or self-care (01) ==
LOC: HO.HMGCX 09:23
PROVIDERS: PCP Internal Medicine; Visit Provider Internal Medicine
DX: M25.512 Pain in left shoulder (principal); Z13.1 Encounter for screening for diabetes mellitus
CPT/HCPCS: 73030; 83036

== ENCOUNTER 2024-04-29 09:23 | Outpatient (AMB) | payer OTHER, SELFPAY ==
[2024-04-29 09:33] VITALS: BP 118/70; PULSE 78; O2SAT 98; BMI 55.2
--- NOTE | 2024-04-29 09:33 | A.OFFPC_ITS ---
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 Tobacco use date assessed: 01/14/24 Dental Screening Dental Screen Date: 09/11/23 HPI Follow up on DM HPI Details Pt presents for f/u HTN, hyperlipid, IDDM. stable on meds. Pt c/o L shoulder pain on and off worse when trying to use it lifting overhead. She denies any trauma. Patient has been under lot of stress related to her work. [facility] Medical History Sciatica Hyperlipemia HTN (hypertension) Hx of screening mammography Normal pelvic exam Anxiety Rash of both feet Acute flank pain Annual physical exam Normal Pap smear Anemia Sleep apnea Morbid obesity Dysphagia IDDM (insulin dependent diabetes mellitus) Surgical History Hx of shoulder surgery Hx of wisdom tooth extraction History of tonsillectomy and adenoidectomy Hx of cholecystectomy Family History Father CVD (cardiovascular disease) Diabetes mellitus Substance use disorder Mother No problems noted. Paternal Grandmother Diabetes mellitus Paternal Grandfather Diabetes mellitus Sister Cancer of thyroid Maternal Grandmother Mental health disorder Social History Housing: Apartment Alcohol intake: current Alcohol intake frequency: holidays/special occasions only Patient Tobacco Use Status: Former Tobacco user e-Cigarette/Vaping Use: Never Used service: No Current occupational status: employed Cognitive needs: No Hearing needs: No Vision needs: Yes Questionnaire Thrive Questionnaire Date Thrive assessed: 04/29/24 I am a: Patient What is your living situation today?: I have a steady place to live Within the past 12 months, did the food you bought not last and you didn't have the money to get more?: Never true Within the past 12 months, did you worry whether your food would run out before you got money to buy more?: Never true Do you have trouble paying for medicines?: I choose not to answer this question Do you have trouble getting transportation to medical appointments?: No Do you have trouble paying your heating and electricity bill?: No Do you have trouble taking care of your child, family member or friend?: No Do you have trouble with day-to-day activities such as bathing, preparing meals, shopping, managing finances, etc.?: No Are you currently unemployed and looking for a job?: No Are you interested in more education?: No Please select the resources that you would like help with: None Currently or been in a relationship where the following occur: No concerns repor yuliet THRIVE Score: 0 MARE-7 AMB Questionnaire MARE-7 Date MARE - 7 assessed: 01/14/24 Source: Developed by Drs. Abiodun Saldaña, Soo Tong, Jaun Rousseau and colleagues, with an educational gualberto from [employer] Review of Systems Const All systems reviewed & are unremarkable except as noted in HPI and below ENT Reports no additional complaints Card Reports no additional complaints Resp Reports no additional complaints GI Reports no additional complaints Reports no additional complaints Physical exam (Primary Care) Vital Signs: Last Vital Signs Pulse 78 04/29/24 09:33 BP 118/70 04/29/24 09:33 Pulse Ox 98 04/29/24 09:33 BMI result Body Mass Index 55.2 Tobacco/Smoking Status: Tobacco use Status Tobacco use date assessed 01/14/24 04/29/24 09:33 Patient Tobacco Use Status Former Tobacco user 04/29/24 09:33 e-Cigarette/Vaping Use Never Used 04/29/24 09:33 Thrive Assessment: Date of Thrive Assessment Date Thrive assessed 04/29/24 04/29/24 09:35 Currently or been in a relationship where the following occur: No concerns reported Const General: no acute distress HENMT Head: Yes normal to inspection General nose exam: Normal external nose present Mouth: Normal oral and palatal mucosa present Eyes General: appearance normal, both eyes and all related structures Neck Neck: Yes supple Resp Effort & Inspection: normal respiratory effort Auscultation: clear to auscultation bilaterally Cardio Rhythm: regular rhythm Heart sounds: S1 normal heart sound present and S2 normal heart sound present GI Inspection: Yes normal to inspection Extrem Other: Reproducible tenderness anterior aspect of the left shoulder there is slightly decreased range of motion Results AMB Hemoglobin A1c AMB Hemoglobin A1c 6.3 % Last Edit by Mauri Temple CMA on 04/29/24 09: 55 Coding Level of Care Code Est Pt Level 4 (21620) Diagnoses Shoulder pain, left M25.512 Asthma J45.909 Hyperlipemia E78.5 HTN (hypertension) I10 Morbid obesity E66.01 IDDM (insulin dependent diabetes mellitus) Assessment & Plan Assessment & Plan (1) Shoulder pain, left: Code(s): M25.512 - Pain in left shoulder Category: Medical Plan: Check x-ray and referred to physical therapy (2) Asthma: Comment: Jlcu-rgs-ukrrjjl antihistamines not effective for seasonal allergy Code(s): J45.909 - Unspecified asthma, uncomplicated Category: Medical Plan: Continue inhaler and montelukast (3) Hyperlipemia: Code(s): E78.5 - Hyperlipidemia, unspecified Category: Medical Plan: Continue statin (4) HTN (hypertension): Code(s): I10 - Essential (primary) hypertension Category: Medical Plan: Continue current medications (5) Morbid obesity: Code(s): E66.01 - Morbid (severe) obesity due to excess calories Category: Medical Plan: Decreasing caloric intake increase physical activity weight loss discussed with the patient (6) IDDM (insulin dependent diabetes mellitus): Comment: Difficulty swallowing metformin tablet, on Insulin and Jardiance. Trulicity was not effective, she can not afford co-pay for [place], Category: Medical Plan: A1c is 6.2, continue current medications follow-up in 5 months with a fasting labs before Orders: Orders AMB Hemoglobin A1c Today Z13.9 - Encounter for screening, unspecified XR shoulder LT min 2V Today M25.512 - Pain in left shoulder PT Evaluation and Treatment Today M25.512 - Pain in left shoulder
== END 2024-04-29 10:12 | disposition home or self-care (01) ==
PROVIDERS: PCP Internal Medicine; Visit Provider Internal Medicine
DX: M25.512 Pain in left shoulder (principal); E66.01 Morbid (severe) obesity due to excess calories; Z68.43 Body mass index [BMI] 50.0-59.9, adult; J45.909 Unspecified asthma, uncomplicated; E78.5 Hyperlipidemia, unspecified; I10 Essential (primary) hypertension

== ENCOUNTER → 2024-04-29 10:06 | Outpatient (BNV) | payer OTHER, SELFPAY | PROVIDERS: PCP Internal Medicine; Visit Provider Radiology Diagnostic Radiology | DX: M19.012 Primary osteoarthritis, left shoulder (principal) | CPT/HCPCS: 73030 ==

== ENCOUNTER 2024-06-01 06:00 | Outpatient (RCR) | payer OTHER, SELFPAY ==
--- NOTE | 2024-05-04 06:31 | MHC.PT.EP ---
[facility] [place] Office [place] Office [place] Office [address] Tangela Armstrong [address] [phone] F: [phone] F: [phone] F: [phone] F: [phone] Physical Therapy Plan of Care Date of Evaluation: 05/04/24 Date of Surgery: n/a Diagnosis: L shoulder pain Assessment: Patient is a 43 year old female presenting to PT with complaints of pain in her L shoulder. Pt reports onset of pain began months ago due to insidious onset. She presents today with impairments in pain, ROM, posture, shoulder strength. 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 Clinical presentation today is most consistent with signs and sx associated with L shoulder pain and pt will benefit from skilled PT 2 week x 4 weeks to address the following problems and impairments noted upon evaluation: pain, ROM, posture, shoulder strength. These problems limit the patient with the following functional activities: ADLs, reaching, lifting. The prescribed treatment plan of care is medically necessary. Co-morbidities of DM were identified and taken into considerations of plan of care. Pt was educated on HEP, role of PT, prognosis, POC. Frequency and Duration: The patient will be seen 2 x week x 4 weeks Short Term Goals: Pt will demonstrate improved L shoulder ROM to equal B in 2 weeks. Pt will demonstrate improved L shoulder MMT strength by 1/3 grade in 2 weeks. Pt will demonstrate min to no cues for posture with exercises in 2 weeks. Luggage Attendant Goals: Pt will demonstrate improved SPADI score by 13 points in 4 weeks for improved functional mobility. Pt will demonstrate ability to reach with min to no pain in 4 weeks for improved tolerance to self care bathing and dressing. Pt will demonstrate improved ability to lift with min to no pain in 4 weeks for improved tolerance to household duties. Treatment Plan: Modalities to reduce pain, spasms and effusion. Manual therapy to restore motion and function. Therapeutic exercise to improve strength and flexibility. Neuromuscular re-education for posture and balance. Therapeutic activities to return to functional activities of daily living. Electronically signed by: Macarena Mcmillan, PT, DPT, ATC Please sign and return to therapist. Thank you for your referral.
--- NOTE | 2024-06-01 06:47 | MHC.PT.DC ---
[facility] [place] Office [place] Office [place] Office [address] [phone] F: [phone] F: [phone] F: [phone] F: [phone] Physical Therapy Discharge Report Diagnosis: L shoulder pain Date of Surgery: n/a Date of Evaluation: 05/04/24 Date of Discharge: 06/01/24 Treatments to Date: 5 Cancellations to Date: 0 No Shows to Date: 0 Discharge Status: Patient Elected to Stop Recommend MD Follow-up Discharge Summary: 06/01/2024: Pt has unfortunately made minimal to no progress since start of PT and actually feels her shoulder is in more pain overall. At this time based on lack of progress it is no longer appropriate to continue with skilled PT. Recommend following up with her provider for further evaluation of her pain with possibility of more imaging if indicated. Pt is in agreement with plan. Electronically signed by: Macarena Mcmillan, PT, DPT, ATC Please sign and return to therapist. Thank you for your referral.
== END 2024-06-01 06:47 | disposition home or self-care (01) ==
LOC: HO.PTCHIC 06:00
PROVIDERS: PCP Internal Medicine; Visit Provider Internal Medicine
DX: M25.512 Pain in left shoulder (principal)
CPT/HCPCS: 97110; 97161

== ENCOUNTER 2024-09-02 07:17 | Outpatient (REF) | payer OTHER, SELFPAY ==
--- OUTSIDE RECORDS SUMMARY | 2024-09-02 07:19 | XMS_ITS | Patient Health Record ---
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 Name Role Phone Belkys Buenrostro MD Primary Care Provider Pam Moreno Unavailable [phone] Allergies Allergen (clinical drug ingredient) Drug/Non Drug Allergy documented on EMR Reaction Allergy Type Onset Date Status acetaminophen / oxycodone Percocet Unknown Drug Allergy Active metformin Metformin Unknown Drug Allergy Active Results Component Value Reference Range Notes HEMOGLOBIN A1C (GLYCOHEMOGLO BIN) Reviewed date:02/18/2024 03:48:25 PM Interpretation: Performing Lab: Notes/Report: TOTAL HEMOGLOBIN (HGBA1C) 6.5 Reason For Referral No Information Medications Medication SIG (Take, Route, Frequency, Duration) Notes Start Date End Date Status Jardiance 25 MG 1 tablet Orally Once a day Active Ketoconazole 2 % 1 application Externally Once a day Not-Taking Montelukast Sodium A ctive Pantoprazole Sodium 40 MG 1 tablet Orall y Once a day for 30 day(s) Active Lantus 100 UNIT/ML as directed Subcutaneous Active Kyleena 19.5 MG as directed Intrauterine Active Ciclopirox Olamine 0.77 % 1 application to affected area Externally Twice a day to effected areas on feet for 30 days 12/12/2022 Not-Taking Olmesartan Medoxomil 20 MG 1 tablet Oral ly Once a day for 30 day(s) Active Ammonium Lactate 12 % 1 application to affected area Externally Twice a day to dry areas of skin on feet for 30 days 12/12/2022 Not-Taking Atorvastatin Calcium 20 MG 1 tablet Oral ly Once a day Active Pravastatin Sodium 20 MG 1 tablet Orally Once a day for 30 day(s) Not-Taking Symbicort Active Cyclobenzaprine HCl 10 MG 1 tablet at be dtime as needed Orally Once a day for 30 day(s) Not-Taking HumaLOG 100 UNIT/ML as directed Injection Active Albuterol Sulfate 108 (90 Base) MCG/ACT 1 puff as needed Inhalation every 4 hrs Active Trulicity 3 MG/0.5ML as directed Subcutaneous Not-Taking Ozempic Active Clotrimazole-Betamethasone 1-0.05 % 1 application to affected area Externally Twice a day to affected areas on feet for 30 days 12/13/2021 Not-Taking Social History Tobacco Use: Social History Observation Description Date Details (start date - stop date) Former Smoker NA - 05/27/2002 Tobacco Use/Smoking Question Answer Notes Are you a: former smoker When did you stop smoking? 05/27/2002 Alcohol Screen Question Answer Notes Did you have a drink containing alcohol in the p ast year? Yes Points 0 Interpretation Negative Tobacco use other than smoking: Question Answer Notes Are you an other tobacco user? No Problems Problem Type SNOMED Code ICD Code Onset Dates Problem Status W/U Status Risk Notes Problem [id number] Type 2 diabetes mellitus without complications (E11.9) Active confirmed Vital Signs Height 5ft2in in 02/18/2024 Weight 299 lbs 02/18/2024 BMI 54.68 kg/m2 02/18/2024 Encounters Encounter Location Date Provider Diagnosis [facility] [address] [address] 02/18/2024 Pam Woodard Type 2 diabetes mellitus without complications E11.9 and Xerosis cutis L85.3 Assessments Encounter Date Diagnosis (ICD Code) Assessment Notes Treatment Notes Treatment Clinical Notes Section Notes 02/18/2024 Xerosis cutis (ICD-10 - L85.3) 02/18/2024 Type 2 diabetes mellitus without complications (ICD-10 - E11.9) Plan Of Treatment Next Appt Details Provider Name:Pam olivares, 02/17/2025 09:00:00 AM, [address] [place] [address], [id number], Insurance Providers Payer Name Payer Address Payer Phone Subscriber Number Group Number Insured Name Patient Relationship to Insured Coverage Start Date Coverage End Date [facility] [address] [place] [address] [phone] [id number] Shanique Ventura Self - patient is the insured Medical (General) History Medical History History ICD Code Anemia Anxiety Dysphagia Hypertension Diabetic Obesity, morbid Sleep apnea Back,Hip,and Knee pain Reflux ( GERD) Fatty liver covid-19 Depression PCOS tendonitis Carpal tunnel Irritable bowel syndrome Chicken pox Surgical History Surgery Date(Month/Year) wisdom teeth extraction tonsillectomy and adenoidectomy gall bladder shoulder surgery 2021
--- OUTSIDE RECORDS SUMMARY | 2024-09-02 07:19 | XMS_ITS ---
[facility] Organization [facility] Address [address] [place] [address] Care Team Providers Care Job Captain Name Role Phone Belkys Buenrostro MD Primary Care Provider Pam Moreno Unavailable [phone] Allergies Allergen (clinical drug ingredient) Drug/Non Drug Allergy documented on EMR Reaction Allergy Type Onset Date Status acetaminophen / oxycodone Percocet Unknown Drug Allergy Active metformin Metformin Unknown Drug Allergy Active REASON FOR VISIT Skin Problem Medications Medication SIG (Take, Route, Frequency, Duration) Notes Start Date End Date Status Ciclopirox Olamine 0.77 % 1 application to affected area Externally Twice a day to effected areas on feet for 30 days 12/12/2022 Not-Taking Ammonium Lactate 12 % 1 application to affected area Externally Twice a day to dry areas of skin on feet for 30 days 12/12/2022 Not-Taking Ketoconazole 2 % 1 application Externally Once a day Not-Taking Trulicity 3 MG/0.5ML as directed Subcutaneous Not-Taking Clotrimazole-Betamethasone 1-0.05 % 1 application to affected area Externally Twice a day to affected areas on feet for 30 days 12/13/2021 Not-Taking Lantus 100 UNIT/ML as directed Subcutaneous Active Pravastatin Sodium 20 MG 1 tablet Orally Once a day for 30 day(s) Not-Taking Cyclobenzaprine HCl 10 MG 1 tablet at be dtime as needed Orally Once a day for 30 day(s) Not-Taking HumaLOG 100 UNIT/ML as directed Injection Active Albuterol Sulfate 108 (90 Base) MCG/ACT 1 puff as needed Inhalation every 4 hrs Active Pantoprazole Sodium 40 MG 1 tablet Orall y Once a day for 30 day(s) Active Kyleena 19.5 MG as directed Intrauterine Active Olmesartan Medoxomil 20 MG 1 tablet Oral ly Once a day for 30 day(s) Active Montelukast Sodium A ctive Ozempic Active Atorvastatin Calcium 20 MG 1 tablet Oral ly Once a day Active Symbicort Active Jardiance 25 MG 1 tablet Orally Once a day Active Social History Tobacco Use: Social History Observation [...] Are you an other tobacco user? No Vital Signs Height 5ft2in in 02/18/2024 Weight 299 lbs 02/18/2024 BMI 54.68 kg/m2 02/18/2024 Encounters Encounter Location Date Provider Diagnosis [facility] [address] [address] 02/18/2024 Pam Woodard Type 2 diabetes mellitus without complications E11.9 and Xerosis cutis L85.3 Assessments Encounter Date Diagnosis (ICD Code) Assessment Notes Treatment Notes Treatment Clinical Notes Section Notes 02/18/2024 Type 2 diabetes mellitus without complications (ICD-10 - E11.9) 02/18/2024 Xerosis cutis (ICD-10 - L85.3) Plan Of Treatment Next Appt Details Follow Up: 1 Year, Reason: Provider Name:Pam olivares, 02/17/2025 09:00:00 AM, [address] [place] [address], [address], Progress Notes * Aníbal HARRISONOB: 0 (43 yo F)Acc No.[id number]:02/18/2024 Progress Note Patient:?Shanique HARRISON Provider:?Pam Woodard DPM :1980???Age:43 Y???Sex:Female D ate:02/18/2024 [address] [facility] [place] Pcp:Belkys Buenrostro MD Subjective: * Chief Complaints: * ???Skin Problem * HPI: ???Skin problems:?Nature:?dryness.?Location:?Right .?Duration:?several years.?Onset/Cause:?gradual.?Course:?improved.?Treatments:?Clotrim-Betameth.? * ROS:?General/Constitutional:?Nausea?denies, denies, denies.?Vomiting?denies, denies, denies.?Hunger Thirst?denies, denies, denies.?Loss appetite?denies, denies, denies.?Chills?denies, denies, denies.?Fatigue?denies, denies, denies.?Fever?denies, denies, denies.?Night Sweats?denies, denies, denies.?Unexplained weight loss?denies, denies, denies.?Unexplained weight gain?denies, denies, denies.?HEENTM:?Dentures?denies, denies, denies.?Dizziness?admits, admits, admits.?Glasses/contacts?admits, admits, admits.?Retinopathy?denies, denies, denies.?Blurred/double vision?admits, admits, admits.?TMJ?denies, denies, denies.?Discharge/drainage?denies, denies, denies.?Implants?denies, denies, denies.?Sore throat?denies, denies, denies.?Dental implants?denies, denies, denies.?Hard of hearing ?denies, denies, denies.?Difficulty chewing/swallowing/speaking admits, admits, admits.?Nose bleeds?denies, denies, denies.?Sore mouth?denies, denies, denies.?Respiratory:?On Oxygen?denies, denies, denies.?Pneumonia/pleurisy?denies, denies, denies.?Bronchitis?denies, denies, denies.?Emphysema?denies, denies, denies.?Coughing?admits, admits, admits.?Cough blood?denies, denies, denies.?Shortness of breath?denies, denies, denies.?Wheezing?admits, admits, admits.?Cardiovascular:?Pacemaker?denies, denies, denies.?MVP?denies, denies, denies.?WPW?denies, denies, denies.?CHF?denies, denies, denies.?Heart attack?denies, denies, denies.?Septal defect?denies, denies, denies.?Rapid beat denies, denies, denies.?Chest pain ?denies, denies, denies.?Atrial Fib.?denies, denies, denies.?Murmur/Palpitations?denies, denies, denies.?Gastrointestinal:?Hemorrhoids?denies, denies, denies.?Stomach/Abdominal pain?denies, denies, denies.?Dark blood stool?denies, denies, denies.?Irritable bowel ?admits, admits, admits.?Constipation?denies, denies, denies.?Diarrhea?denies, denies, denies.?Hematology:?Swelling?admits, admits, admits.?Clots?denies, denies, denies.?Varicose Veins?denies, denies, denies.?Bruising?denies, denies, denies.?Bleeding problem?denies, denies, denies.?Genitourinary:?Blood urine?denies, denies, denies.?Frequent/Painfu/urination/bladder control?denies, denies, denies.?Kidney stones?denies, denies, denies.?Infection (UTI)?denies, denies, denies.?Nephropathy?denies, denies, denies. sex trans dis (STD)?denies, denies, denies.?Prostate?denies, denies, denies.?Musculoskeletal:?Hammertoes?denies, denies, denies.?Bunions?denies, denies, denies.?Back Pain?admits, admits, admits.?Muscle Cramps/ Resting?denies, denies, denies.?Muscle cramps / walking?denies, denies, denies.?Generalized aches and pains?admits, admits, admits.?Weakness?denies, denies, denies.?Integ.:?Sewell?denies, denies, denies.?Scars?denies, denies, denies.?Corns/calluses?denies, denies, denies.?Ingrown nails?denies, denies, denies.?Painful nails?denies, denies, denies.?Open Sores?denies, denies, denies.?Rashes?denies, denies, denies.?Neurologic:?Difficulty sleeping?admits, admits, admits.?Brain disorder?denies, denies, denies.?Numbness?denies, denies, denies.?Balance trouble?admits, admits, admits.?Confusion?denies, denies, denies.?Fainting/blackouts?denies, denies, denies.?Tingling?denies, denies, denies.?Tremors?denies, denies, denies.? * Medical History:? * Surgical History:?wisdom keyur th extraction tonsillectomy and adenoidectomy gall bladder shoulder surgery 2021 * Hospitalization/Major Diagno stic Procedure:?Denies Past Hospitalization * Family History:?Father: Hear t failure, chronic obstructive pulmonary disease, diabetes, kidney/liver disease, foot amputation, heart attack.?Paternal Grand Mother: diabetes.?Paternal Grand Father: diabetes, foot problems.?Maternal Grand Mother: brain cancer.?Paternal uncle: kidney/liver disease.?Maternal aunt: high blood pressure.?Siblings: thyroid cancer.? * Social History:?Tobacco Use:?Tobacco Use/Smoking?Are you a:?former smoker ?When did you stop smoking??05/27/2002 ?Tobacco use other than smoking?Are you an other tobacco user??No ???Drugs/Alcohol:?Drugs?Have you used drugs other than those for medical reasons in the past 12 months??No ?Alcohol Screen?Did you have a drink containing alcohol in the past year??Yes ?Points?0 ?Interpretation?Negative ???Miscellaneous:?Caffeine: yes, 2 per week. ?Children: no. ?Exercise: no. ?Marital status: . 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 * Medications:?TakingAtorvasta tin Calcium 20 MG Tablet 1 tablet Orally Once a day Symbicort Jardiance 25 MG Tablet 1 tablet Orally Once a day Montelukast Sodium Ozempic Kyleena 19.5 MG Intrauterine Device as directed Intrauterine Olmesartan Medoxomil 20 MG Tablet 1 tablet Orally Once a day Pantoprazole Sodium 40 MG Tablet Delayed Release 1 tablet Orally Once a day Lantus 100 UNIT/ML Solution as directed Subcutaneous HumaLOG 100 UNIT/ML Solution as directed Injection Albuterol Sulfate 108 (90 Base) MCG/ACT Aerosol Powder Breath Activated 1 puff as needed Inhalation every 4 hrs Taking Atorvastatin Calcium 20 MG Tablet 1 tablet Orally Once a day Taking Symbicort Taking Jardiance 25 MG Tablet 1 tablet Orally Once a day Taking Montelukast Sodium Taking Ozempic Taking Kyleena 19.5 MG Intrauterine Device as directed Intrauterine Taking Olmesartan Medoxomil 20 MG Tablet 1 tablet Orally Once a day Taking Pantoprazole Sodium 40 MG Tablet Delayed Release 1 tablet Orally Once a day Taking Lantus 100 UNIT/ML Solution as directed Subcutaneous Taking HumaLOG 100 UNIT/ML Solution as directed Injection Taking Albuterol Sulfate 108 (90 Base) MCG/ACT Aerosol Powder Breath Activated 1 puff as needed Inhalation every 4 hrs Not-Taking/PRNPravastatin Sodium 20 MG Tablet 1 tablet Orally Once a day Cyclobenzaprine HCl 10 MG Tablet 1 tablet at bedtime as needed Orally Once a day Ketoconazole 2 % Cream 1 application Externally Once a day Trulicity 3 MG/0.5ML Solution Pen-injector as directed Subcutaneous Clotrimazole-Betamethasone 1-0.05 % Cream 1 application to affected area Externally Twice a day to affected areas on feet Ciclopirox Olamine 0.77 % Cream 1 application to affected area Externally Twice a day to effected areas on feet Ammonium Lactate 12 % Cream 1 application to affected area Externally Twice a day to dry areas of skin on feet Medication List reviewed and reconciled with the patientNot-Taking/PRN Pravastatin Sodium 20 MG Tablet 1 tablet Orally Once a day Not-Taking/PRN Cyclobenzaprine HCl 10 MG Tablet 1 tablet at bedtime as needed Orally Once a day Not-Taking/PRN Ketoconazole 2 % Cream 1 application Externally Once a day Not-Taking/PRN Trulicity 3 MG/0.5ML Solution Pen-injector as directed Subcutaneous Not-Taking/PRN Clotrimazole-Betamethasone 1-0.05 % Cream 1 application to affected area Externally Twice a day to affected areas on feet Not-Taking/PRN Ciclopirox Olamine 0.77 % Cream 1 application to affected area Externally Twice a day to effected areas on feet Not-Taking/PRN Ammonium Lactate 12 % Cream 1 application to affected area Externally Twice a day to dry areas of skin on feet Medication List reviewed and reconciled with the patient * Allergies:?PercocetMetformin yes[Allergies Verified] Objective: * Vitals:?Ht: 5ft2in, Wt:299, BMI:54.68, Shoe size: 8.5-9, BS: 188, Ht-cm: 157.48 cm, Wt-k.62 kg. * ???Past Orders: ???Lab:HEMOGLOBIN A1C (GLYCO HEMOGLOBIN) (Order Date - 12/26/2023) (Collection Date & Time - 12/26/2023 03:47 PM) ? Value Reference Range ?TOTAL HEMOGLOBIN (HGBA1C) 6.5 * Examination: ???Ophthalmology Referral: ?DIABETES EYE EXAM?Procedure Performed:?Yes ?Date of Exam Performed?09/11/2023 ?Diabetic Retinopathy Screening:?Yes ?Findings of Diabetic Eye Exam:?retinopathy?General Examination: ?GENERAL APPEARANCE:?Reveals a pleasant, alert, well nourished, well developed, well hydrated individual, who demonstrates proper attention to hygene/body habitus, and is in no acute distress.?ORIENTED:?person, place, and time.?FOOT EXAM:?Lower Extremity Neurological Exam performed:?Yes ?Visual exam of foot performed:?Yes ?Date?02/18/2024 ?Footwear Evaluation?Footwear Evaluation performed:?Yes?Neurological: ?SENSORY:?Neurological exam reveals intact sensorium, pain sensation normal, vibration sensation intact, pinprick sensation is normal in the lower extremities, Pt denies, anesthesia, burning, paresthesia, tingling, B/L.?DEEP TENDON REFLEXES:?Achilles, 2/4, B/L.?Vascular: ?DP PULSES (B):?3/4, B/L.?PT PULSES (B):?3/4, B/L.?CAPILLARY FILL TIME:?immediate, all digits, B/L.?TROPHIC CONDITION-TEXTURE/ELASTICITY/TURGOR/HAIR GROWTH (B):?normal, B/L.?TEMPERTURE GRADIENT (C):?warm to cool, proximal to distal, B/L.?PIGMENTATION:?normal, B/L.?EDEMA (C):?absent, B/L.?Dermatologic: ?SKIN FINDINGS:?Skin shows sign(s) of, dryness, scaling, in a stocking fashion, no fissure(s) present, B/L.?Orthopedic: ?MUSCLE STRENGTH:?5/5 all groups in a symmetrical fashion , B/L.?FOOTWEAR:?fair condition.? Assessment: * Assessment: 1.?Xerosis cutis - L85.3???2 .?Type 2 diabetes mellitus without complications - E11.9 (Primary)??? Plan: * Treatment: * Procedure Codes:? * Preventive Medicine:? ??Counseling:?Discussion:?-13: Office or other outpatient visit for the evaluation and management of an established patient, which required a medically appropriate history and/or examination and LOW level of DECISION MAKING for: 1 STABLE ACUTE UNCOMPLICATED PROBLEM, 2 OR MORE MINOR PROBLEMS, OR 1 STABLE CHRONIC PROBLEM, THAT POSE(S) A LOW RISK FOR MORBIDITY/MORTALITY. The visit on the day of the encounter encompassed interpreting the data and educating the patient as to the nature of their condition, treatment options available according to their individual PMH, meds, allergies, and overall health/living conditions, as well as any potential risks or complications that may occur from a failure to adhere to, and participate in, the recommended course of therapy. The discussion included a complete verbal, and/or written explanation of the examination results, any x-rays taken, the proposed diagnosis, and outline of the treatment plan. A schedule for future care needs was also explained. The patient verbalized an understanding of the instructions at this time and agreed to be an active participant in their treatment. If the patient should think of any questions or concerns after the visit, I have encouraged the patient to call the office.?Diabetic Footcare:?The patient was advised against future self nail/callus care due to inherent risks for infection, loss of limb/life given diabetes.?Shoe Gear Counseling:?The patient and I reviewed the types of shoes they should be wearing. My recommendation included obtaining a well-fitted shoe with a good supportive, non-foldable nor twistable sole, plenty of toe/room for the forefoot, and proper arch support. Based on todays examination, I recommended the patient look for new shoes, by having their feet professionally measured. We discussed that generally the best time of the day for a shoe fitting is the afternoon. Different shoes types and brands to best match the patients occupation and vocation were discussed. Specific brand selection will be up to the patient, their individual foot condition/deformities, and fit. The patient and I reviewed the standard new shoe break in period by wearing them for a few hours a day while checking for redness or sores as wear time is increased. The patient verbally confirmed to understanding the information discussed.?Xerosis:?The patient was counseled on the diagnosis, potential etiologies, and treatment options for their skin condition. We discussed the risks and benefits of each option from performing no treatment, to utilizing OTC topical skin creams/ointments, to utilizing prescription topical creams/ointments, to utilizing customized compounded topical medications and use of nocturnal occlusion with any/all previously detailed therapies. We discussed the advantages and disadvantages of each possible treatment and importance for adherence to all the recommended therapies for optimum success and avoid potential complications such as open sore/infection/possible hospitalization. We discussed the potential effectiveness of each topical preparation as well as each ones possible side effects and/or patient medication interactions. Patient questions re: use, dosage, successful outcomes, and application consistency were reviewed and the patient verbalized that all answers were clearly understood. .? ??Screening/Special Tests:?Fall Risk?Assessment:?Performed ?Screening:?No falls in the past year ?FALLS: Screening for Future Fall Risk?Have you had two or more falls in the past year??No ?Have you had any falls with injury in the past year??No * Follow Up:?1 Year * Images: * Sign off status: Completed true * Provider:Sean Woodard DPM Date:? Generated for Christi jeffries/Sheldon/eTranrachelitting on:?09/02/2024 07:18 AM EDT History and Physical Notes * HPI (History of Present Illness) Category Sub-Category Detail Notes Category Not es Skin problems Nature: dryness Location: Right Duration: several years Onset/Cause: gradual Course: improved Treatments: Clotrim-Betameth Examination Category Sub-Category Detail Notes Category Not es Neurological SENSORY: Neurological exa m reveals intact sensorium, pain sensation normal, vibration sensation intact, pinprick sensation is normal in the lower extremities, Pt denies, anesthesia, burning, paresthesia, tingling, B/L DEEP TENDON REFLEXES: Achilles, 2/4, B/L Dermatologic SKIN FINDINGS: Skin shows sign( s) of, dryness, scaling, in a stocking fashion, no fissure(s) present, B/L Orthopedic FOOTWEAR EVALUATION: fair condition MUSCLE STRENGTH: 5/5 all groups in a symmetrical fashion , B/L General Examination GENERAL APPEARANCE: Reveals a pleasant, alert, well nourished, well developed, well hydrated individual, who demonstrates proper attention to hygene/body habitus, and is in no acute distress FOOT EXAM: Lower Extremity Neurological Exa m performed:: Yes Visual exam of foot performed:: Yes Date: 02/18/2024 ORIENTED: person, place, and t bryant Footwear Evaluation Footwear Evaluation performe d:: Yes Ophthalmology Referral DIABETES EYE EXAM Procedure Perform ed:: Yes ?Date of Exam Performed: 09/11/2023 Diabetic Retinopathy Screening:: Yes Findings of Diabetic Eye Exam:: retinopa thy Vascular DP PULSES (B): 3/4, B/L PT PULSES (B): 3/4, B/L CAPILLARY FILL TIME: immediate, all digi ts, B/L TEMPERTURE GRADIENT (C): warm to cool, p roximal to distal, B/L TROPHIC CONDITION-TEXTURE/ELASTICITY/TURGOR/HAIR GROWTH (B): normal, B/L EDEMA (C): absent, B/L PIGMENTATION: normal, B/L
--- OUTSIDE RECORDS SUMMARY | 2024-09-02 07:19 | XMS_ITS ---
Author Organization [facility] Address [address] [place] [address] Care Team Providers Care Bridge Ironworker Name Role Phone Belkys Buenrostro MD Primary Care Provider Pam Moreno [phone] Encounters Encounter Location Date Provider Diagnosis [address] [address] 12/11/2023 Pam Woodard Plan Of Treatment Next Appt Details Provider Name:Pam olivares, 02/17/2025 09:00:00 AM, [address] [place] [address], [phone], Progress Notes * CHRISTY AnaForestOB: 0 (43 yo F)Acc No.[id number]:12/11/2023 Progress Note Patient:?Shanique HARRISON Provider:?Pam Woodard DPM :1980???Age:43 Y???Sex:Female D ate:12/11/2023 Address:[address] [place], [place] Pcp:Belkys Buenrostro MD Subjective: * Chief Complaints: * ??? * Medical History:? Objective: * Vitals:? Assessment: Plan: * Treatment: * Images: * The named appointment provid er may or may not be the originator of this progress note, and it is not deemed complete until electronically signed by the appointment provider. Sign off status: Pending * Provider:?Pam Woodard DPM Date:? Generated for Christi jeffries/Sheldon/Samantha on:?09/02/2024 07:19 AM EDT
[2024-09-02 10:45] LABS: MANUAL DIFF FLAG NO
[2024-09-02 11:03] LABS: Basophils Absolute Auto 0.1 X10*3/uL (0.0-0.2); Basophils Percent Auto 0.5 % (0-2); Eosinophils Absolute Auto 0.2 X10*3/uL (0.0-0.4); Eosinophils Percent Auto 1.4 % (0-4); Hematocrit 39.2 % (37.0-47.0); Hemoglobin 12.6 g/dl (12.0-16.0); Imm Gran Abs Auto 0.06 X10*3/uL (0.00-0.03); Imm Gran Pct Auto 0.6 % (0.0-0.4); Lymphocytes Absolute Auto 1.7 X10*3/uL (1.2-4.9); Lymphocytes Percent Auto 15.9 % (20-40); Mean Corpuscular HGB Conc 32.1 g/dl (31.0-35.0); Mean Corpuscular Hemoglobin 26.8 pg (27.0-33.0); Mean Corpuscular Volume 83.4 fL (80.0-98.0); Mean Platelet Volume 9.7 fL (9.4-12.3); Monocytes Absolute Auto 0.7 X10*3/uL (0.1-1.2); Monocytes Percent Auto 6.6 % (2-11); Neutrophils Absolute Auto 7.9 x10*3/uL (2.0-8.3); Platelet Count 354 X10*3/uL (160-400); Red Cell Distribution Width 16.3 % (11.0-16.0); White Blood Count 10.5 X10*3/uL (4.8-10.8)
[2024-09-02 11:08] LABS: Estimated Average Glucose 134 mg/dL; Hemoglobin A1C 152.6223 umol/L; Hemoglobin A1c % 6.3 % (<6.0); Total Hemoglobin (HGBA1C) 3329.2569 umol/L
[2024-09-02 11:22] LABS: Creatinine Urine 74.47 mg/dL
[2024-09-02 11:26] LABS: Alanine Aminotransferase 21 U/L (0-31); Albumin Level 3.9 g/dL (3.5-5.0); Alkaline Phosphatase 84 U/L (39-117); Anion Gap 9 (12-20); Aspartate Amino Transferase 21 U/L (5-31); Bilirubin Total 0.3 mg/dL (0.0-1.0); Blood Urea Nitrogen 14 mg/dL (9-16); Calcium 9.2 mg/dL (8.4-10.2); Carbon Dioxide 25 mmol/L (22-29); Chloride 108 mmol/L (96-108); Cholesterol 111 mg/dL (<200); Estimated Glomerular Filt Rate > 60; Glucose Fasting 144 mg/dL (60-99); HDL Cholesterol 50 mg/dL (>40); LDL Cholesterol Calculated 52 mg/dL (<100); Potassium 4.4 mmol/L (3.3-5.1); Sodium 138 mmol/L (135-145); Total Protein 6.9 g/dL (6.5-8.0); Triglycerides 49 mg/dL (<150)
== END 2024-09-02 07:18 | disposition home or self-care (01) ==
LOC: HO.HMGCLDS 07:17
PROVIDERS: PCP Internal Medicine; Visit Provider Internal Medicine
DX: E55.9 Vitamin D deficiency, unspecified (principal); E78.5 Hyperlipidemia, unspecified; I10 Essential (primary) hypertension; E66.01 Morbid (severe) obesity due to excess calories; Z13.1 Encounter for screening for diabetes mellitus
CPT/HCPCS: 36415; 80053; 80061; 82043; 82306; 82570; 83036; 84443; 85025

== ENCOUNTER 2024-09-24 07:56 | Outpatient (AMB) | payer OTHER, SELFPAY ==
--- OUTSIDE RECORDS SUMMARY | 2024-09-24 08:00 | XMS_ITS | Patient Health Record ---
Author Organization [facility] Address [address] [place] [address] Care Team Providers Care Fac Engineer Name Role Phone Belkys Buenrostro MD Primary Care Provider Pam Moreno Unavailable [phone] Allergies Allergen (clinical drug ingredient) Drug/Non Drug [...] Problem Status W/U Status Risk Notes Problem [id number] Type 2 diabetes mellitus without complications (E11.9) Active confirmed Vital Signs Height 5ft2in in 02/18/2024 Weight 299 lbs 02/18/2024 BMI 54.68 kg/m2 02/18/2024 Encounters Encounter Location Date Provider Diagnosis [facility] [address] [address] 02/18/2024 Pam Woodard Type 2 diabetes mellitus without complications E11.9 and Xerosis cutis L85.3 Assessments Encounter Date Diagnosis (ICD Code) Assessment Notes Treatment Notes Treatment Clinical Notes Section Notes 02/18/2024 Xerosis cutis (ICD-10 - L85.3) 02/18/2024 Type 2 diabetes mellitus without complications (ICD-10 - E11.9) Plan Of Treatment Next Appt Details Provider Name:Pam olivares, 02/17/2025 09:00:00 AM, [address] [place] [address], [phone], Insurance Providers Payer Name Payer Address Payer Phone Subscriber Number Group Number Insured Name Patient Relationship to Insured Coverage Start Date Coverage End Date [facility] [address] [place] [address] [phone] [id number] Shanique Ventura Self - patient is the [...]
--- OUTSIDE RECORDS SUMMARY | 2024-09-24 08:00 | XMS_ITS ---
Author [facility] Address [address] [place] [address] Care Team Providers Care Window Covering Sales Consultant Name Role Phone Belkys Buenrostro MD Primary Care Provider Pam Moreno Unavailable [phone] Allergies Allergen (clinical drug ingredient) Drug/Non Drug [...] 02/18/2024 Encounters Encounter Location Date Provider Diagnosis [facility] [address] [address] 02/18/2024 Pam Woodard Type 2 diabetes mellitus without complications E11.9 and Xerosis cutis L85.3 Assessments Encounter Date Diagnosis (ICD Code) Assessment Notes Treatment Notes Treatment Clinical Notes Section Notes 02/18/2024 Type 2 diabetes mellitus without complications (ICD-10 - E11.9) 02/18/2024 Xerosis cutis (ICD-10 - L85.3) Plan Of Treatment Next Appt Details Follow Up: 1 Year, Reason: Provider Name:Pam olivares, 02/17/2025 09:00:00 AM, [address] [place] [address], [phone], Progress Notes * Aníbal HARRISONOB: 0 (43 yo F)Acc No.[id number]:02/18/2024 Progress Note Patient:?Shanique HARRISON Provider:?Pam Woodard DPM :1980???Age:43 Y???Sex:Female D ate:02/18/2024 [address] [facility] [place] Pcp:Belkys Buenrostro MD Subjective: * Chief Complaints: [...] no. ?Exercise: no. ?Marital status: . 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 * Medications:?TakingAtorvasta tin Calcium 20 MG Tablet [...] Provider:Sean Woodard DPM Date:? Generated for Christi jeffries/Sheldon/Leighitting on:?09/24/2024 08:00 AM EDT History and Physical Notes * [...]
--- OUTSIDE RECORDS SUMMARY | 2024-09-24 08:01 | XMS_ITS ---
Author Organization [facility] Address [address] [place] [address] Care Team Providers Care Circuit Judge Name Role Phone Belkys Buenrostro MD Primary Care Provider Pam Moreno [phone] Encounters Encounter Location Date Provider Diagnosis [address] [address] 12/11/2023 Pam Woodard Plan Of Treatment Next Appt Details Provider Name:Pam olivares, 02/17/2025 09:00:00 AM, [address] [place] [address], [phone], Progress Notes * CHRISTYAna MCCULLOUGHForestOB: 0 (43 yo F)Acc No.[id number]:12/11/2023 Progress Note Patient:?Shanique HARRISON Provider:?Pam Woodard DPM :1980???Age:43 Y???Sex:Female D ate:12/11/2023 Address:[address] [place], [place] Pcp:Belkys Buenrostro MD Subjective: * Chief Complaints: [...] Woodard DPM Date:? Generated for Christi jeffries/Sheldon/Samantha on:?09/24/2024 08:00 AM EDT
--- NOTE | 2024-09-24 08:03 | A.OFFPC_ITS ---
Vital Signs 09/24/24 08:04 Height 5 ft 2 in Weight 298 lb BMI 54.5 BP 122/70 Blood Pressure Location Lt brachial Position Sitting Respiration 18 Pulse 81 Pulse Source Pulse Oximeter Temp 98.2 F Temp Source Oral Pulse Oximetry (%) 98 Oxygen Delivery Method Room Air Intake Visit Reasons: Annual PE - see comments Intake Note: Pt is here today for PE. Allergies acetaminophen [Percocet] Allergy (Unknown, Verified 09/24/24 08:06) itchy, swelling in legs oxycodone [Percocet] Allergy (Unknown, Verified 09/24/24 08:06) itchy, swelling in legs metformin Adverse Reaction (Unknown, Verified 09/24/24 08:06) not able to swallow the pill - its too big. Medication List - Last Reconciled 09/24/24 by eBlkys Buenrostro MD albuterol sulfate 90 mcg/actuation 1 puff PO QID PRN atorvastatin 20 mg PO DAILY blood-glucose sensor (CuroverseStyle Sheryl 2 Plus Sensor device) Test blood sugar 4 times per day, change sensor every 15 days budesonide-formoterol 160-4.5 mcg/actuation (Symbicort) inhalation cholecalciferol (vitamin D3) 125 mcg PO DAILY CPAP (CPAP Machine/Device) including supplies-pressure setting 13cm H2O with AirFit 20 small mask empagliflozin (Jardiance) 25 mg PO DAILY flash glucose scanning reader (CuroverseStyle Sheryl 2 [place]) As directed insulin glargine (Lantus U-100 Insulin) 50 units (0.5 mL) subcut DAILY insulin lispro (Humalog KwikPen (U-100) Insulin) 20 units subcut TID lancets (FreeStyle Lancets) test blood sugar 3 times per day montelukast 10 mg PO DAILY Mounjaro (tirzepatide) 7.5 mg (0.5 mL) subcut QWEEK NS olmesartan 5 mg PO DAILY omega-3 fatty acids 1,000 mg PO DAILY Ozempic (semaglutide) 2 mg (0.75 mL) subcut QWEEK NS pantoprazole 40 mg PO BID triamcinolone acetonide 0.1% 1 appl topical DAILY [vitamin b12 3,000mcg 2 gummies daily] [vitamin b6 100 mg 1 tab daily] Tobacco use date assessed: 09/24/24 Dental Screening Dental Screen Date: 09/24/24 Did you have a dental visit in the last 12 months?: Yes Did you have a dental problem in the last 6 months where you did not have access to dental care?: No Was dental information given to patient?: Patient has dentist HPI Annual PE - see comments HPI0 Details Pt presents for PE. Pt reports Ozempic not as effective as Mounjaro in suppressing patient's appetite and controlling blood glucose. She continues to take insulin Jardiance and following ADA diet. Patient complains of feeling tired all the time despite getting good night sleep. She has has been using a CPAP every night and report indicates effectiveness. Patient has a history of depression for many years and never tried any medications. She denies suicide ideation is maintaining full-time job. She tried counseling for a year in the past but was not helpful. [facility] Medical History Sciatica Hyperlipemia HTN (hypertension) Hx of screening mammography Normal pelvic exam Anxiety Rash of both feet Acute flank pain Annual physical exam Normal Pap smear Anemia Sleep apnea Morbid obesity Dysphagia IDDM (insulin dependent diabetes mellitus) Surgical History Hx of shoulder surgery Hx of wisdom tooth extraction History of tonsillectomy and adenoidectomy Hx of cholecystectomy Family History Father CVD (cardiovascular disease) Diabetes mellitus Substance use disorder Mother No problems noted. Paternal Grandmother Diabetes mellitus Paternal Grandfather Diabetes mellitus Sister Cancer of thyroid Maternal Grandmother Mental health disorder Social History Housing: Apartment Alcohol intake: current Alcohol intake frequency: holidays/special occasions only Patient Tobacco Use Status: Former Tobacco user e-Cigarette/Vaping Use: Never Used service: No Current occupational status: employed Cognitive needs: No Hearing needs: No Vision needs: Yes Questionnaire PHQ-9 Over the last 2 weeks, how often have you been bothered by any of the following problems? 1. Little interest or pleasure in doing things: several days 2. Feeling down, depressed, or hopeless: several days 3. Trouble falling or staying asleep, or sleeping too much: more than half the days 4. Feeling tired or having little energy: nearly every day 5. Poor appetite or overeating: more than half the days 6. Feeling bad about yourself - or that you are a failure or have let yourself or your family down: not at all 7. Trouble concentrating on things, such as reading the newspaper or watching television: more than half the days 8. Moving or speaking so slowly that other people could have noticed. Or the opposite - being so fidgety or restless that you have been moving around a lot more than usual: several days 9. Thoughts that you would be better off or of hurting yourself in some way: not at all Total score: 12 Depression Screening Interpretation: Negative Depression Screening Done: Yes 44048 - PHQ-9 Billing: Yes Source: Developed by Drs. Abiodun Saldaña, Soo Tong, Jaun Rousseau and colleagues, with an educational gualberto from [email or web address]. Thrive Questionnaire Date Thrive assessed: 09/24/24 I am a: Patient What is your living situation today?: I have a steady place to live Within the past 12 months, did the food you bought not last and you didn't have the money to get more?: Never true Within the past 12 months, did you worry whether your food would run out before you got money to buy more?: Never true Do you have trouble paying for medicines?: No Do you have trouble getting transportation to medical appointments?: No Do you have trouble paying your heating and electricity bill?: No Do you have trouble taking care of your child, family member or friend?: No Do you have trouble with day-to-day activities such as bathing, preparing meals, shopping, managing finances, etc.?: No Are you currently unemployed and looking for a job?: No Are you interested in more education?: No Please select the resources that you would like help with: None Currently or been in a relationship where the following occur: No concerns reported THRIVE Score: 0 AUDIT C Alcohol Use Questionnaire (AUDIT-C) 1. How often do you have a drink containing alcohol?: Monthly or less 2. How many drinks containing alcohol do you have on a typical day when you are drinking?: 1 or 2 3. How often do you have six or more drinks on one occasion?: Never Total Score: 1 MARE-7 AMB Questionnaire MARE-7 Date MARE - 7 assessed: 09/24/24 Feeling nervous, anxious, or on edge: 1 = Several days Not being able to stop or control worryin = Several days Worrying too much about different things: 1 = Several days Trouble relaxin = Several days Being so restless that it is hard to sit still: 1 = Several days Becoming easily annoyed or irritable: 1 = Several days Feeling afraid as if something awful might happen: 0 = Not at all Total MARE-7 score (0-4 normal; 5-9 mild; 10-14 moderate; 15-21 severe): 6 Source: Developed by Drs. Abiodun Saldaña, Soo Tong, Jaun Rousseau and colleagues, with an educational gualberto from [employer]. MARE-7 Assessment Billing MARE-7 Assessment Tool: MARE-7 Assessment 95954 Review of Systems Const All systems reviewed & are unremarkable except as noted in HPI and below Eyes Reports no additional complaints ENT Reports no additional complaints Card Reports no additional complaints Resp Reports no additional complaints GI Reports no additional complaints Reports no additional complaints Physical exam (Primary Care) Vital Signs: Last Vital Signs Temp 98.2 F 09/24/24 08:04 Pulse 81 09/24/24 08:04 Resp 18 09/24/24 08:04 BP 122/70 09/24/24 08:04 Pulse Ox 98 09/24/24 08:04 Oxygen Delivery Method Room Air 09/24/24 08:04 BMI result Body Mass Index 54.5 Tobacco/Smoking Status: Tobacco use Status Tobacco use date assessed 09/24/24 09/24/24 08:16 Patient Tobacco Use Status Former Tobacco user 09/24/24 08:16 e-Cigarette/Vaping Use Never Used 09/24/24 08:16 PHQ-9: PHQ-9 Score PHQ-9: Total score 12 09/24/24 08:50 Depression Screening Interpretation: Negative Thrive Assessment: Date of Thrive Assessment Date Thrive assessed 09/24/24 09/24/24 08:16 Currently or been in a relationship where the following occur: No concerns reported Const General: no acute distress HENMT Head: Yes normal to inspection Ears: hearing grossly normal bilaterally Face and sinus: Yes normal facial exam Throat: Yes posterior oropharynx normal Eyes General: appearance normal, both eyes and all related structures Neck Neck: Yes no lymphadenopathy and Yes supple Resp Effort & Inspection: normal respiratory effort Auscultation: clear to auscultation bilaterally Cardio Rhythm: regular rhythm Heart sounds: S1 normal heart sound present and S2 normal heart sound present GI Inspection: Yes normal to inspection Palpation (GI): Soft to palpation Percussion: Yes normal to percussion Auscultation: normal bowel sounds Coding Level of Care Code Est Pt Prev Care 40-64y(00773) Diagnoses IDDM (insulin dependent diabetes mellitus) HTN (hypertension) I10 Hyperlipemia E78.5 Annual physical exam Z00.00 Depression with anxiety F41.8 Additional Codes MARE-7 Assessment Billing - MARE-7 Assessment Tool: MARE-7 Assessment 02665 ([id number]) PHQ-9 - 91378 - PHQ-9 Billing: Yes ([id number]) Assessment & Plan Assessment & Plan (1) IDDM (insulin dependent diabetes mellitus): Comment: Difficulty swallowing metformin tablet, on Insulin and Jardiance. Trulicity was not effective, she can not afford co-pay for Mounjaro, Category: Medical Plan: A1c is 6.3. ADA diet increasing physical activity weight loss discussed with the patient. Ozempic will be changed to Mounjaro 7.5 mg weekly for 1 month patient will follow-up in 1 month to discuss increasing dose if medication well tolerated (2) HTN (hypertension): Code(s): I10 - Essential (primary) hypertension Category: Medical Plan: Continue olmesartan (3) Hyperlipemia: Code(s): E78.5 - Hyperlipidemia, unspecified Category: Medical Plan: Continue statin (4) Annual physical exam: Code(s): Z00.00 - Encounter for general adult medical examination without abnormal findings Category: Medical Plan: Well-balanced diet regular exercise discussed with the patient she is up-to-date with the mammogram and pelvic exam by sales and marketing assistant. Patient will be referred to GI for colonoscopy (5) Depression with anxiety: Code(s): F41.8 - Other specified anxiety disorders Category: Medical Plan: Counseling was recommended but patient declined. Zoloft 50 mg daily will be started patient will follow-up in 1 month Orders: Orders Complete Blood Count Auto Diff 3 Months E78.5 - Hyperlipidemia, unspecified, I10 - Essential (primary) hypertension Hemoglobin A1c 3 Months E78.5 - Hyperlipidemia, unspecified, I10 - Essential (primary) hypertension Lipid Panel 3 Months E78.5 - Hyperlipidemia, unspecified, I10 - Essential (primary) hypertension Comprehensive [place]. Panel Fast 3 Months E78.5 - Hyperlipidemia, unspecified, I10 - Essential (primary) hypertension Microalbumin, Random (w Creat) 3 Months E78.5 - Hyperlipidemia, unspecified, I10 - Essential (primary) hypertension Referrals Gastroenterology Referral Z00.00 - Encounter for general adult medical examination without abnormal findings Medications: New sertraline 1/2 tabl qd x3 days, then 1 tabl QD 50 mg PO DAILY 90 tabs 0RF Mounjaro (tirzepatide) 7.5 mg (0.5 mL) subcut QWEEK 2 mL 0RF NS Changed From Humalog KwikPen Insulin (insulin lispro) 14 units (0.14 mL) subcut TID 45 mL 5RF NS To insulin lispro (Humalog KwikPen (U-100) Insulin) 20 units subcut TID
[2024-09-24 08:04] VITALS: BP 122/70; PULSE 81; RESP 18; TEMP 36.8; O2SAT 98; BMI 54.5
== END 2024-09-24 11:07 | disposition home or self-care (01) ==
LOC: HO.HMCC 07:56
PROVIDERS: PCP Internal Medicine; Visit Provider Internal Medicine
DX: I10 Essential (primary) hypertension (principal); E78.5 Hyperlipidemia, unspecified; Z00.00 Encounter for general adult medical examination without abnormal findings; F41.8 Other specified anxiety disorders

== ENCOUNTER → 2024-09-24 07:56 | Outpatient (BNVA) | payer OTHER, SELFPAY | PROVIDERS: PCP Internal Medicine; Visit Provider Internal Medicine | DX: Z00.00 Encounter for general adult medical examination without abnormal findings (principal); E11.9 Type 2 diabetes mellitus without complications; I10 Essential (primary) hypertension; E78.5 Hyperlipidemia, unspecified; F41.8 Other specified anxiety disorders; Z79.4 Long term (current) use of insulin; Z79.84 Long term (current) use of oral hypoglycemic drugs; Z79.899 Other long term (current) drug therapy | CPT/HCPCS: 96127 ==

== ENCOUNTER 2024-11-09 11:46 | Outpatient (AMB) | payer OTHER, SELFPAY ==
[2024-11-09 11:51] VITALS: BP 124/70; PULSE 69; RESP 18; TEMP 36.8; O2SAT 97; BMI 54.7
--- NOTE | 2024-11-09 11:51 | A.OFFPC_ITS ---
Vital Signs 11/09/24 11:51 Height 5 ft 2 in Weight 299 lb BMI 54.7 BP 124/70 Blood Pressure Location Lt brachial Position Sitting Respiration 18 Pulse 69 Pulse Source Pulse Oximeter Temp 98.2 F Temp Source Oral Pulse Oximetry (%) 97 Oxygen Delivery Method Room Air Intake Visit Reasons: medication follow up Intake Note: Pt is here today for a follow up visit. Allergies acetaminophen [Percocet] Allergy (Unknown, Verified 11/09/24 11:52) itchy, swelling in legs oxycodone [Percocet] Allergy (Unknown, Verified 11/09/24 11:52) itchy, swelling in legs metformin Adverse Reaction (Unknown, Verified 11/09/24 11:52) not able to swallow the pill - its too big. Medication List - Last Reconciled 11/09/24 by Belkys Buenrostro MD albuterol sulfate 90 mcg/actuation 1 puff PO QID PRN atorvastatin 20 mg PO DAILY blood-glucose sensor ([employer] WirelessStyle Sheryl 2 Plus Sensor device) Test blood sugar 4 times per day, change sensor every 15 days budesonide-formoterol 160-4.5 mcg/actuation (Symbicort) inhalation cholecalciferol (vitamin D3) 125 mcg PO DAILY CPAP (CPAP Machine/Device) including supplies-pressure setting 13cm H2O with AirFit 20 small mask empagliflozin (Jardiance) 25 mg PO DAILY flash glucose scanning reader ([employer] WirelessStyle Sheryl 2 [place]) As directed insulin glargine (Lantus U-100 Insulin) 50 units (0.5 mL) subcut DAILY insulin lispro (Humalog KwikPen (U-100) Insulin) 20 units subcut TID lancets (FreeStyle Lancets) test blood sugar 3 times per day [magnesium 250 mg 2 gummies daily] montelukast 10 mg PO DAILY Mounjaro (tirzepatide) 7.5 mg (0.5 mL) subcut QWEEK NS olmesartan 5 mg PO DAILY omega-3 fatty acids 1,000 mg PO DAILY pantoprazole 40 mg PO BID sertraline 50 mg PO DAILY [turmeric and neil complex gel tablet ] [vitamin b12 3,000mcg 2 gummies daily] Tobacco use date assessed: 11/09/24 Dental Screening Dental Screen Date: 09/24/24 HPI medication follow up HPI Details Patient presents for the follow-up of type 2 diabetes, hyperlipidemia chronic asthma, chronic anxiety and depression. Patient reports improved glucose control on Mounjaro she has been tolerating medication well for one month. She would like to increase the dose to 10 mg weekly. Anxiety is slightly improved on sertraline. She is looking for a counselor [facility] Medical History Sciatica Hyperlipemia HTN (hypertension) Hx of screening mammography Normal pelvic exam Anxiety Rash of both feet Acute flank pain Annual physical exam Normal Pap smear Anemia Sleep apnea Morbid obesity Dysphagia IDDM (insulin dependent diabetes mellitus) Surgical History Hx of shoulder surgery Hx of wisdom tooth extraction History of tonsillectomy and adenoidectomy Hx of cholecystectomy Family History Father CVD (cardiovascular disease) Diabetes mellitus Substance use disorder Mother No problems noted. Paternal Grandmother Diabetes mellitus Paternal Grandfather Diabetes mellitus Sister Cancer of thyroid Maternal Grandmother Mental health disorder Social History Housing: Apartment Alcohol intake: current Alcohol intake frequency: holidays/special occasions only Patient Tobacco Use Status: Former Tobacco user e-Cigarette/Vaping Use: Never Used service: No Current occupational status: employed Cognitive needs: No Hearing needs: No Vision needs: Yes Questionnaire Thrive Questionnaire Date Thrive assessed: 09/17/24 I am a: Patient What is your living situation today?: I have a steady place to live Within the past 12 months, did the food you bought not last and you didn't have the money to get more?: Never true Within the past 12 months, did you worry whether your food would run out before you got money to buy more?: Never true Do you have trouble paying for medicines?: No Do you have trouble getting transportation to medical appointments?: No Do you have trouble paying your heating and electricity bill?: No Do you have trouble taking care of your child, family member or friend?: No Do you have trouble with day-to-day activities such as bathing, preparing meals, shopping, managing finances, etc.?: No Are you currently unemployed and looking for a job?: No Are you interested in more education?: No Please select the resources that you would like help with: None Currently or been in a relationship where the following occur: No concerns reported THRIVE Score: 0 MARE-7 AMB Questionnaire MARE-7 Date MARE - 7 assessed: 09/24/24 Source: Developed by Drs. Abiodun Saldaña, Soo Tong, Jaun Rousseau and colleagues, with an educational gualberto from [employer]. Review of Systems Const All systems reviewed & are unremarkable except as noted in HPI and below ENT Reports no additional complaints Card Reports no additional complaints Resp Reports no additional complaints GI Reports no additional complaints Reports no additional complaints Physical exam (Primary Care) Vital Signs: Last Vital Signs Temp 98.2 F 11/09/24 11:51 Pulse 69 11/09/24 11:51 Resp 18 11/09/24 11:51 BP 124/70 11/09/24 11:51 Pulse Ox 97 11/09/24 11:51 Oxygen Delivery Method Room Air 11/09/24 11:51 BMI result Body Mass Index 54.7 Tobacco/Smoking Status: Tobacco use Status Tobacco use date assessed 11/09/24 11/09/24 12:00 Patient Tobacco Use Status Former Tobacco user 11/09/24 12:00 e-Cigarette/Vaping Use Never Used 11/09/24 12:00 Thrive Assessment: Date of Thrive Assessment Date Thrive assessed 09/17/24 11/09/24 12:00 Currently or been in a relationship where the following occur: No concerns reported Const General: no acute distress HENMT Head: Yes normal to inspection Throat: Yes posterior oropharynx normal Resp Effort & Inspection: normal respiratory effort Auscultation: clear to auscultation bilaterally Cardio Rhythm: regular rhythm Heart sounds: S1 normal heart sound present and S2 normal heart sound present Coding Level of Care Code Est Pt Level 4 (85495) Diagnoses Depression with anxiety F41.8 Asthma J45.909 Morbid obesity E66.01 IDDM (insulin dependent diabetes mellitus) Assessment & Plan Assessment & Plan (1) Depression with anxiety: Code(s): F41.8 - Other specified anxiety disorders Category: Medical Plan: Increase sertraline to 75 mg a day. Patient will start counselling (2) Asthma: Code(s): J45.909 - Unspecified asthma, uncomplicated Category: Medical Plan: Continue Symbicort (3) Morbid obesity: Code(s): E66.01 - Morbid (severe) obesity due to excess calories Category: Medical Plan: Decreasing caloric intake increasing physical activity discussed with the patient (4) IDDM (insulin dependent diabetes mellitus): Comment: Difficulty swallowing metformin tablet, on Insulin and Jardiance. Trulicity was not effective, she can not afford co-pay for Mounjaro, Category: Medical Plan: A1c is 6.3, ADA diet activity she will increase Mounjaro to 10 mg next month and then to 12.5 the following month. Patient is changing her health insurance and may have to find a new doctor Medications: New Mounjaro (tirzepatide) start after Mounjaro 10 mg weekly 12.5 mg (0.5 mL) subcut QWEEK 2 mL 0RF NS Mounjaro (tirzepatide) after 12.5 mg weekly 15 mg (0.5 mL) subcut QWEEK 2 mL 0RF NS Mounjaro (tirzepatide) 10 mg (0.5 mL) subcut QWEEK 2 mL 0RF NS Changed From sertraline 1/2 tabl qd x3 days, then 1 tabl QD 50 mg PO DAILY 90 tabs 0RF To sertraline 75 mg (1.5 x 50 mg) PO DAILY 135 tabs 2RF
--- OUTSIDE RECORDS SUMMARY | 2024-11-09 13:21 | XMS_ITS | Patient Health Record ---
Author Organization [facility] Address [address] [place] [address] Care Team Providers Care Vice President [employer] Name Role Phone Belkys Buenrostro MD Primary Care Provider Pam Moreno Unavailable [phone] Allergies Allergen (clinical drug ingredient) Drug/Non Drug [...] Problem Status W/U Status Risk Notes Problem [id number] Type 2 diabetes mellitus without complications (E11.9) Active confirmed Vital Signs Height 5ft2in in 02/18/2024 Weight 299 lbs 02/18/2024 BMI 54.68 kg/m2 02/18/2024 Encounters Encounter Location Date Provider Diagnosis [facility] [address] [address] 02/18/2024 Pam Woodard Type 2 diabetes mellitus without complications E11.9 and Xerosis cutis L85.3 Assessments Encounter Date Diagnosis (ICD Code) Assessment Notes Treatment Notes Treatment Clinical Notes Section Notes 02/18/2024 Xerosis cutis (ICD-10 - L85.3) 02/18/2024 Type 2 diabetes mellitus without complications (ICD-10 - E11.9) Plan Of Treatment Next Appt Details Provider Name:Pam olivares, 02/17/2025 09:00:00 AM, [address] [place] [address], [id number], Insurance Providers Payer Name Payer Address Payer Phone Subscriber Number Group Number Insured Name Patient Relationship to Insured Coverage Start Date Coverage End Date [facility] [address] [place] [address] [phone] [id number] Shanique Ventura Self - patient is the [...]
== END 2024-11-09 12:46 | disposition home or self-care (01) ==
LOC: HO.HMCC 11:47
PROVIDERS: PCP Internal Medicine; Visit Provider Internal Medicine
DX: J45.909 Unspecified asthma, uncomplicated (principal); F41.8 Other specified anxiety disorders; E66.01 Morbid (severe) obesity due to excess calories; Z68.43 Body mass index [BMI] 50.0-59.9, adult

== ENCOUNTER → 2024-11-09 11:46 | Outpatient (BNVA) | payer OTHER, SELFPAY | PROVIDERS: PCP Internal Medicine; Visit Provider Internal Medicine | DX: Z13.89 Encounter for screening for other disorder (principal) ==

== ENCOUNTER 2024-11-19 06:58 | Outpatient (REF) | payer OTHER, SELFPAY ==
[2024-11-19 09:54] LABS: MANUAL DIFF FLAG NO
[2024-11-19 10:10] LABS: Basophils Absolute Auto 0.1 X10*3/uL (0.0-0.2); Basophils Percent Auto 0.5 % (0-2); Eosinophils Absolute Auto 0.2 X10*3/uL (0.0-0.4); Hemoglobin 11.9 g/dl (12.0-16.0); Imm Gran Pct Auto 0.9 % (0.0-0.4); Lymphocytes Absolute Auto 1.8 X10*3/uL (1.2-4.9); Lymphocytes Percent Auto 16.4 % (20-40); Mean Corpuscular HGB Conc 31.3 g/dl (31.0-35.0); Mean Corpuscular Hemoglobin 25.9 pg (27.0-33.0); Mean Corpuscular Volume 82.6 fL (80.0-98.0); Mean Platelet Volume 9.9 fL (9.4-12.3); Monocytes Absolute Auto 0.7 X10*3/uL (0.1-1.2); Monocytes Percent Auto 6.6 % (2-11); Neutrophils Percent Auto 73.6 % (45-73); Platelet Count 350 X10*3/uL (160-400); Red Cell Distribution Width 16.6 % (11.0-16.0); White Blood Count 10.8 X10*3/uL (4.8-10.8)
[2024-11-19 10:23] LABS: Estimated Average Glucose 148 mg/dL; Hemoglobin A1c % 6.8 % (<6.0); Total Hemoglobin (HGBA1C) 3145.1336 umol/L
[2024-11-19 10:26] LABS: Alanine Aminotransferase 34 U/L (0-31); Albumin Level 4.1 g/dL (3.5-5.0); Alkaline Phosphatase 102 U/L (39-117); Anion Gap 11 (12-20); Aspartate Amino Transferase 25 U/L (5-31); Bilirubin Total 0.3 mg/dL (0.0-1.0); Blood Urea Nitrogen 11 mg/dL (9-16); Calcium 8.7 mg/dL (8.4-10.2); Carbon Dioxide 24 mmol/L (22-29); Chloride 109 mmol/L (96-108); Cholesterol 136 mg/dL (<200); Estimated Glomerular Filt Rate > 60; Glucose Fasting 108 mg/dL (60-99); HDL Cholesterol 49 mg/dL (>40); LDL Cholesterol Calculated 73 mg/dL (<100); Potassium 3.6 mmol/L (3.3-5.1); Sodium 140 mmol/L (135-145); Total Protein 6.8 g/dL (6.5-8.0); Triglycerides 70 mg/dL (<150)
[2024-11-19 11:38] LABS: Microalbum/Creatinine Ratio Ur 19.2 ug/mg cr (<30)
== END 2024-11-19 06:59 | disposition home or self-care (01) ==
LOC: HO.HMGCLDS 06:58
PROVIDERS: PCP Internal Medicine; Visit Provider Internal Medicine
DX: E66.01 Morbid (severe) obesity due to excess calories (principal); I10 Essential (primary) hypertension; Z13.1 Encounter for screening for diabetes mellitus
CPT/HCPCS: 36415; 80053; 80061; 82043; 82570; 83036; 85025

== ENCOUNTER 2025-02-05 09:20 | Outpatient (AMB) | payer OTHER, SELFPAY ==
--- OUTSIDE RECORDS SUMMARY | 2023-12-11 05:00 | XMS_ITS ---
Author Organization [facility] Address [address] [place] [address] Care Team Providers Care Enterprise Sales Person Name Role Phone Belkys Buenrostro MD Primary Care Provider Pam Moreno [phone] Encounters Encounter Location Date Provider Diagnosis [address] [address] 12/11/2023 Pam Woodard Plan Of Treatment Next Appt Details Provider Name:Pam olivares, 02/17/2025 09:00:00 AM, [address] [place] [address], [id number], Progress Notes * Aníbal HARRISONOB: 0 (44 yo F)Acc No.[id number]:12/11/2023 Progress Note Patient: Shanique RIVERA Provider: Ja Woodard DPM :1980 A ge:43 Y S ex:Female Date:12/11/2023 Address:[address] [place], [place] Pcp:Belkys Buenrostro MD Subjective: * Chief Complaints: [...] Woodard DPM Date: 0 12/11/2023 Generated for Christi jeffries/Sheldon/Samantha on: 0 02/05/2025 10:22 AM EDT
--- OUTSIDE RECORDS SUMMARY | 2025-01-26 05:30 | XMS_ITS ---
Author Organization [facility] Address [address] [place] [address] Care Team Providers Care Grades 7 And 8 Teacher Name Role Phone Belkys Buenrostro MD Primary Care Provider Abiodun Medina Unavailable [phone] Allergies Allergen (clinical drug ingredient) Drug/Non Drug Allergy documented on EMR Reaction Allergy Type Onset Date Status acetaminophen / oxycodone Percocet Unknown Drug Allergy Active dust/animals/mold/tr e es/grass/weeds (uncoded) Unknown Allergy Active REASON FOR VISIT Patient presents today for a COLON SCREENING Medications Medication SIG (Take, Route, Frequency, Duration) Notes Start Date End Date Status Albuterol Sulfate HFA 108 (90 Base) MCG/ACT 1 puff as needed Inhalation every 4 hrs Active Atorvastatin Calcium 20 MG 1 tablet Orally Once a day Active HumaLOG KwikPen 100 UNIT/ML as directed Subcutaneous Act erickson Jardiance 25 MG 1 tablet Orally Once a day Active Lantus 100 UNIT/ML as directed Subcutaneous Active Montelukast Sodium 10 MG 1 tablet Orally Once a day Active Olmesartan Medoxomil 5 MG as directed Orally Active Mounjaro 12.5 MG/0.5ML as directed Subcutaneous Active Pantoprazole Sodium 40 MG 1 tablet 1/2 t o 1 hour before morning meal Orally Once a day Active Liletta (52 MG) 20.1 MCG/DAY as directed Intrauterine Act erickson [place] 3 1000 MG 1 capsule Orally Thr ee times a day Active Symbicort 160-4.5 MCG/ACT as directed Inhalation Active Sertraline HCl 50 MG 1 and half tablet O rally Once a day Active Social History Tobacco Use: Social History Observation Description Date Details (start date - stop date) Never Smoker NA - NA Tobacco Control (Standard) Question Answer Notes Tobacco use: Nonsmoker AUDIT-C (Standard) Question Answer Notes Did you have a drink contain ing alcohol in the past year? Yes How often did you have a dri nk containing alcohol in the past year? Never (0 point) How many drinks did you have on a typical day when you were drinking in the past year? 1 or 2 drinks (0 point) How often did you have six o r more drinks on one occasion in the past year? Never (0 point) Points 0 Interpretation Negative Problems Problem Type SNOMED Code ICD Code Onset Dates Problem Status W/U Status Risk Notes Problem Gastroesophageal reflux disease (976032590) GERD (gastroesopha geal reflux disease) (K21.9) Active confirmed Problem Colon cancer screening (738090315) Colon cancer screening (Z12.11) Active confirmed Problem Irritable bowel syndrome (72183435) Irritable bowel syndrome (K58.9) Active confirmed Vital Signs Blood pressure systolic 111 mm Hg 01/27/20 25 Blood pressure diastolic 77 mm Hg 025 Height 62 in 01/26/2025 Weight 297 lbs 01/26/2025 BMI 54.32 kg/m2 01/26/2025 Procedures Procedure Date Ordered Date Performed Result Body Sit e UPPER GI ENDOSCOPY 01/26/2025 N/A COLONOSCOPY 01/26/2025 N/A Encounters Encounter Location Date Provider Diagnosis [facility] [address] [facility] [place] [address] 01/26/2025 Abiodun Pugh GERD (gastroesophageal reflux disease) K21.9 ; Colon cancer screening Z12.11 and Irritable bowel syndrome K58.9 Assessments Encounter Date Diagnosis (ICD Code) Assessment Notes Treatment Notes Treatment Clinical Notes Section Notes 01/26/2025 GERD (gastroesopha geal reflux disease) (ICD-10 - K21.9) Overall, Shanique appears well and is not having any new or worrisome GI complaints.Given her age and no worrisome GI complaints, I did recommend a colonoscopy for screening purposes. We did review the rationale for this in regard to colon cancer prevention. I will obtain biopsies from the colon to rule out any underlying microscopic colitis in regard to her chronic IBS. I have also recommended an upper endoscopy in the same day given her longstanding history of reflux to assess for any Chase's esophagus and to assess for any significant hiatal hernia. I will obtain duodenal biopsies at that time to rule out celiac disease as a contributing factor to her IBS-type symptoms.If she is found to have a significant hiatal hernia then we could always consider hiatal hernia surgery if her symptoms prove refractory to the high-dose PPI. Obviously weight loss would be an important factor in her reflux issues as well. Given her longstanding diabetes we may need to consider doing a gastric emptying study to rule out any underlying gastroparesis as a contributing factor to the reflux as well. Full consent has been obtained from her for both procedures, including risks of bleeding and perforation. The procedures will be done with monitored anesthesia care. She has been given the below instructions regarding adjustment of her medications for the procedures. We did discuss that patients with had cholecystectomy may have some bile-induced diarrhea which might benefit from a trial of cholestyramine. She reports that presently things have been stable in regard to the IBS and she would be inclined to hold off on that and just use Imodium as needed. I did advise her to let me know if anything worsens and we can always give her a prescription for the cholestyramine if need be. Shanique was comfortable with this plan. Thank you again for allowing me to participate in Shanique's care. I shall continue to keep you advised of her progress. 01/26/2025 Colon cancer screening (ICD-10 - Z12.11) Overall, Shanique appears well and is not having any new or worrisome GI complaints.Given her age and no worrisome GI complaints, I did recommend a colonoscopy for screening purposes. We did review the rationale for this in regard to colon cancer prevention. I will obtain biopsies from the colon to rule out any underlying microscopic colitis in regard to her chronic IBS. I have also recommended an upper endoscopy in the same day given her longstanding history of reflux to assess for any Chase's esophagus and to assess for any significant hiatal hernia. I will obtain duodenal biopsies at that time to rule out celiac disease as a contributing factor to her IBS-type symptoms.If she is found to have a significant hiatal hernia then we could always consider hiatal hernia surgery if her symptoms prove refractory to the high-dose PPI. Obviously weight loss would be an important factor in her reflux issues as well. Given her longstanding diabetes we may need to consider doing a gastric emptying study to rule out any underlying gastroparesis as a contributing factor to the reflux as well. Full consent has been obtained from her for both procedures, including risks of bleeding and perforation. The procedures will be done with monitored anesthesia care. She has been given the below instructions regarding adjustment of her medications for the procedures. We did discuss that patients with had cholecystectomy may have some bile-induced diarrhea which might benefit from a trial of cholestyramine. She reports that presently things have been stable in regard to the IBS and she would be inclined to hold off on that and just use Imodium as needed. I did advise her to let me know if anything worsens and we can always give her a prescription for the cholestyramine if need be. Shanique was comfortable with this plan. Thank you again for allowing me to participate in Shanique's care. I shall continue to keep you advised of her progress. 01/26/2025 Irritable bowel syndrome (ICD-10 - K58.9) Overall, Shanique appears well and is not having any new or worrisome GI complaints.Given her age and no worrisome GI complaints, I did recommend a colonoscopy for screening purposes. We did review the rationale for this in regard to colon cancer prevention. I will obtain biopsies from the colon to rule out any underlying microscopic colitis in regard to her chronic IBS. I have also recommended an upper endoscopy in the same day given her longstanding history of reflux to assess for any Chase's esophagus and to assess for any significant hiatal hernia. I will obtain duodenal biopsies at that time to rule out celiac disease as a contributing factor to her IBS-type symptoms.If she is found to have a significant hiatal hernia then we could always consider hiatal hernia surgery if her symptoms prove refractory to the high-dose PPI. Obviously weight loss would be an important factor in her reflux issues as well. Given her longstanding diabetes we may need to consider doing a gastric emptying study to rule out any underlying gastroparesis as a contributing factor to the reflux as well. Full consent has been obtained from her for both procedures, including risks of bleeding and perforation. The procedures will be done with monitored anesthesia care. She has been given the below instructions regarding adjustment of her medications for the procedures. We did discuss that patients with had cholecystectomy may have some bile-induced diarrhea which might benefit from a trial of cholestyramine. She reports that presently things have been stable in regard to the IBS and she would be inclined to hold off on that and just use Imodium as needed. I did advise her to let me know if anything worsens and we can always give her a prescription for the cholestyramine if need be. Shanique was comfortable with this plan. Thank you again for allowing me to participate in Shanique's care. I shall continue to keep you advised of her progress. Plan Of Treatment Pending Test Test Name Order Date UPPER GI ENDOSCOPY 01/26/2025 COLONOSCOPY 01/26/2025 Next Appt Details Provider Name:Abiodun Pugh , 04/26/2025 09:40:00 AM, [address] [place] [address], [id number], Progress Notes * YOLANDA HARRISONOB: 0 (44 yo F)Acc No.[id number]:01/26/2025 Progress Notes Patient: SHANIQUE RIVERA Provider: Ricky Pugh MD :1980 A ge:44 Y S ex:Female Date:01/26/2025 Address:[address] [place], [place] [id number] Pcp:Belkys Buenrostro MD Subjective: * Chief Complaints: * 1 . Patient presents today for a COLON SCREENING. * HPI: i ncontinence: I saw Shanique in consultation today [facility] for the evaluation of her chronic gastroesophageal reflux, irritable bowel syndrome, and need for colorectal cancer screening. As you know, Shanique is a 44-year-old female who generally feels well. She does describe a very longstanding history of reflux and heartburn for which she is currently using Protonix 40 mg twice a day with fairly good relief as long as she does not skip any doses. She denies any dysphagia, early satiety, nausea, nor vomiting. She has a good appetite. She does not use much in the way of any caffeine. She does not smoke nor use any significant rosanna of alcohol. She does describe some irritable bowel syndrome symptoms over the past many years as well. She reports that currently things are fairly good . She denies any particular constipation but does have intermittent diarrhea which usually responds to some Imodium. She does not use much in the way of any milk products. She denies any hematochezia nor melena. She denies any known family history of colorectal cancer, inflammatory bowel disease, or celiac disease.She thinks some of her IBS symptoms worsened after her cholecystectomy. She denies abdominal pain, jaundice, nor unintentional weight loss. She has never had a colonoscopy. She does describe an upper endoscopy in the distant past. * Medical History: I DDM, Hypertension, Kidney stones in her 20 s, Sleep apnea- uses CPAP machine, Asthma, GERD--EGD many years ago, IBS, PCOS, Denies NH,CVA,renal disease, Hypercholesterolemia. * Surgical History: t onsils , adnoidectomy , wisdom teeth extraction , cholecystectomy , subacromial decompression (acromioplasty right shoulder) , subacromial decompression (acromioplasty left shoulder) . * Family History: F ather: , diagnosed with HTN (hypertension), Heart disease, Diabetes. M other: alive. S iblings: alive, sister- diabetes. no known hx of colon cancer. * Social History: T obacco Use: T obacco Control (Standard) T obacco use: N onsmoker. M iscellaneous: M arital status: . 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 D rug/Alcohol: A SOURAV-C (Standard) D id you have a drink containing alcohol in the past year? Y es,?How often did you have a drink containing alcohol in the past year? N ever (0 point), H ow many drinks did you have on a typical day when you were drinking in the past year? 1 or 2 drinks (0 point), H ow often did you have six or more drinks on one occasion in the past year??Never (0 point), P oints 0 , I nterpretation N egative. * Medications: T aking [place] 3 1000 MG Capsule 1 capsule Orally Three times a day , Taking Sertraline HCl 50 MG Tablet 1 and half tablet Orally Once a day , Taking Symbicort 160-4.5 MCG/ACT Aerosol as directed Inhalation , Taking Pantoprazole Sodium 40 MG Tablet Delayed Release 1 tablet 1/2 to 1 hour before morning meal Orally Once a day , Taking Mounjaro 12.5 MG/0.5ML Solution Auto-injector as directed Subcutaneous , Taking Olmesartan Medoxomil 5 MG Tablet as directed Orally , Taking Montelukast Sodium 10 MG Tablet 1 tablet Orally Once a day , Taking Liletta (52 MG) 20.1 MCG/DAY Intrauterine Device as directed Intrauterine , Taking Lantus 100 UNIT/ML Solution as directed Subcutaneous , Taking Jardiance 25 MG Tablet 1 tablet Orally Once a day , Taking HumaLOG KwikPen 100 UNIT/ML Solution Pen-injector as directed Subcutaneous , Taking Atorvastatin Calcium 20 MG Tablet 1 tablet Orally Once a day , Taking Albuterol Sulfate HFA 108 (90 Base) MCG/ACT Aerosol Solution 1 puff as needed Inhalation every 4 hrs , Medication List reviewed and reconciled with the patient * Allergies: P ercocet, dust/animals/mold/trees/grass/weeds. Objective: * Vitals: W t:297lbs, Ht:62in, BMI:54.32Index, BP:111/77mm Hg, Ht-cm: 157.48, Wt-k.72. Assessment: * Assessment: 1. G ERD (gastroesophageal reflux disease) - K21.9 (Primary) 2 . C olon cancer screening - Z12.11 3 . I rritable bowel syndrome - K58.9 Overall, Shanique appears wel l and is not having any new or worrisome GI complaints.Given her age and no worrisome GI complaints, I did recommend a colonoscopy for screening purposes. We did review the rationale for this in regard to colon cancer prevention. I will obtain biopsies from the colon to rule out any underlying microscopic colitis in regard to her chronic IBS. I have also recommended an upper endoscopy in the same day given her longstanding history of reflux to assess for any Chase's esophagus and to assess for any significant hiatal hernia. I will obtain duodenal biopsies at that time to rule out celiac disease as a contributing factor to her IBS-type symptoms.If she is found to have a significant hiatal hernia then we could always consider hiatal hernia surgery if her symptoms prove refractory to the high-dose PPI. Obviously weight loss would be an important factor in her reflux issues as well. Given her longstanding diabetes we may need to consider doing a gastric emptying study to rule out any underlying gastroparesis as a contributing factor to the reflux as well. Full consent has been obtained from her for both procedures, including risks of bleeding and perforation. The procedures will be done with monitored anesthesia care. She has been given the below instructions regarding adjustment of her medications for the procedures. We did discuss that patients with had cholecystectomy may have some bile-induced diarrhea which might benefit from a trial of cholestyramine. She reports that presently things have been stable in regard to the IBS and she would be inclined to hold off on that and just use Imodium as needed. I did advise her to let me know if anything worsens and we can always give her a prescription for the cholestyramine if need be. Shanique was comfortable with this plan. Thank you again for allowing me to participate in Shanique's care. I shall continue to keep you advised of her progress. Plan: * Treatment: 2.?Colon cancer screening?Procedure: COLONOSCOPY* with MAC.DO NOT TAKE MOUNJAR O FOR AT LEAST 7 DAYS BEFORE THE PROCEDURES.DO NOT TAKE JARDIANCE FOR 3 FULL DAYS BEFORE THE PROCEDURES.HAVE DR. BUENROSTRO ADJUST THE INSULINS FOR THE DAY BEFOR EAND THE DAY OF THE PROCEDURES.STOP FISH OIL FOR 1 WEEK BEFORE THE PROCEDURESsched for 04/26/25 at 9:40 am, miralax * Procedure Codes: 4 3235 [facility] GI ENDOSCOPY, DIAGNOSIS, 19951 DIAGNOSTIC COLONOSCOPY * Preventive Medicine: Counseling: C are goal follow-up plan: A hao Normal BMI Follow-up G iving encouragement to exercise, B NH management provided Y es. * * The named appointment provid er may or may not be the originator of this progress note, and it is not deemed complete until electronically signed by the appointment provider. Sign off status: Pending * Provider: Ricky Pugh MD Date: 0 01/26/2025 Generated for Christi jeffries/Sheldon/Leighitting on: 0 02/05/2025 10:22 AM EDT History and Physical Notes * HPI (History of Present Illness) Category Sub-Category Detail Notes Category Not es incontinence I saw Shanique in consultation today [facility] for the evaluation of her chronic gastroesophageal reflux, irritable bowel syndrome, and need for colorectal cancer screening. As you know, Shanique is a 44-year-old female who generally feels well. She does describe a very longstanding history of reflux and heartburn for which she is currently using Protonix 40 mg twice a day with fairly good relief as long as she does not skip any doses. She denies any dysphagia, early satiety, nausea, nor vomiting. She has a good appetite. She does not use much in the way of any caffeine. She does not smoke nor use any significant rosanna of alcohol. She does describe some irritable bowel syndrome symptoms over the past many years as well. She reports that currently things are fairly good . She denies any particular constipation but does have intermittent diarrhea which usually responds to some Imodium. She does not use much in the way of any milk products. She denies any hematochezia nor melena. She denies any known family history of colorectal cancer, inflammatory bowel disease, or celiac disease.She thinks some of her IBS symptoms worsened after her cholecystectomy. She denies abdominal pain, jaundice, nor unintentional weight loss. She has never had a colonoscopy. She does describe an upper endoscopy in the distant past.
[2025-02-05 09:31] VITALS: BP 124/68; PULSE 67; RESP 18; TEMP 36.9; O2SAT 96; BMI 53.8
--- NOTE | 2025-02-05 09:31 | A.OFFPC_ITS ---
Vital Signs 02/05/25 09:31 Height 5 ft 2 in Weight 294 lb BMI 53.8 BP 124/68 Blood Pressure Location Lt brachial Position Sitting Respiration 18 Pulse 67 Pulse Source Pulse Oximeter Temp 98.4 F Temp Source Oral Pulse Oximetry (%) 96 Oxygen Delivery Method Room Air Intake Visit Reasons: medication follow up Intake Note: Pt is here today for a follow up visit. Allergies acetaminophen (Percocet) Allergy (Unknown, Verified 02/05/25 09:32) itchy, swelling in legs oxycodone (Percocet) Allergy (Unknown, Verified 02/05/25 09:32) itchy, swelling in legs metformin Adverse Reaction (Unknown, Verified 02/05/25 09:32) not able to swallow the pill - its too big. Medication List - Last Reconciled 02/05/25 by Belkys Buenrostro MD albuterol sulfate 90 mcg/actuation 1 puff PO QID PRN atorvastatin 20 mg PO DAILY blood-glucose sensor (FreeStyle Sheryl 2 Plus Sensor device) Test blood sugar 4 times per day, change sensor every 15 days budesonide-formoterol 160-4.5 mcg/actuation (Symbicort) inhalation cholecalciferol (vitamin D3) 125 mcg PO DAILY CPAP (CPAP Machine/Device) including supplies-pressure setting 13cm H2O with AirFit 20 small mask empagliflozin (Jardiance) 25 mg PO DAILY flash glucose scanning reader ([employer] [place] [employer] Expect[employer]Style Sheryl 2 [place]) As directed insulin lispro (Humalog KwikPen (U-100) Insulin) 20 units subcut TID lancets (FreeStyle Lancets) test blood sugar 3 times per day Lantus U-100 Insulin (insulin glargine) 50 units (0.5 mL) subcut DAILY NS [magnesium 250 mg 2 gummies daily] montelukast 10 mg PO DAILY Mounjaro (tirzepatide) 15 mg (0.5 mL) subcut QWEEK NS olmesartan 5 mg PO DAILY omega-3 fatty acids 1,000 mg PO DAILY pantoprazole 40 mg PO BID sertraline 75 mg (1.5 x 50 mg) PO DAILY [turmeric and neil complex gel tablet ] [vitamin b12 3,000mcg 2 gummies daily] Tobacco use date assessed: 02/05/25 Dental Screening Dental Screen Date: 09/24/24 HPI medication follow up HPI Details Pt presents for IDDM, hyperlipid, anxiety. Pt reports increase stress at work. Sertraline has been somewhat helpful but patient has not started counseling yet. She denies change in appetite suicide ideation. Patient started 15 mg of Mounjaro last week and has been tolerating medication well. Patient reports spicy and a glucose readings up to 200s around dinnertime aidan pite taking 20 units of Humalog before each meal [facility] Medical History Sciatica Hyperlipemia HTN (hypertension) Hx of screening mammography Normal pelvic exam Anxiety Rash of both feet Acute flank pain Annual physical exam Normal Pap smear Anemia Sleep apnea Morbid obesity Dysphagia IDDM (insulin dependent diabetes mellitus) Surgical History Hx of shoulder surgery Hx of wisdom tooth extraction History of tonsillectomy and adenoidectomy Hx of cholecystectomy Family History Father CVD (cardiovascular disease) Diabetes mellitus Substance use disorder Mother No problems noted. Paternal Grandmother Diabetes mellitus Paternal Grandfather Diabetes mellitus Sister Cancer of thyroid Maternal Grandmother Mental health disorder Social History Housing: Apartment Alcohol intake: current Alcohol intake frequency: holidays/special occasions only Patient Tobacco Use Status: Former Tobacco user e-Cigarette/Vaping Use: Never Used service: No Current occupational status: employed Cognitive needs: No Hearing needs: No Vision needs: Yes Questionnaire PHQ-9 Over the last 2 weeks, how often have you been bothered by any of the following problems? 1. Little interest or pleasure in doing things: several days 2. Feeling down, depressed, or hopeless: several days 3. Trouble falling or staying asleep, or sleeping too much: more than half the days 4. Feeling tired or having little energy: nearly every day 5. Poor appetite or overeating: more than half the days 6. Feeling bad about yourself - or that you are a failure or have let yourself or your family down: not at all 7. Trouble concentrating on things, such as reading the newspaper or watching television: more than half the days 8. Moving or speaking so slowly that other people could have noticed. Or the opposite - being so fidgety or restless that you have been moving around a lot more than usual: several days 9. Thoughts that you would be better off or of hurting yourself in some way: not at all Total score: 12 Depression Screening Interpretation: Positive (Patient will schedule an appointment with a counselor) Depression Screening Follow-up: Existing condition and In treatment Depression Screening Done: Yes Source: Developed by Drs. Abiodun Saldaña, Soo Tong, Jaun Rousseau and colleagues, with an educational gualberto from [employer]. Thrive Questionnaire Date Thrive assessed: 09/17/24 I am a: Patient What is your living situation today?: I have a steady place to live Within the past 12 months, did the food you bought not last and you didn't have the money to get more?: Never true Within the past 12 months, did you worry whether your food would run out before you got money to buy more?: Never true Do you have trouble paying for medicines?: No Do you have trouble getting transportation to medical appointments?: No Do you have trouble paying your heating and electricity bill?: No Do you have trouble taking care of your child, family member or friend?: No Do you have trouble with day-to-day activities such as bathing, preparing meals, shopping, managing finances, etc.?: No Are you currently unemployed and looking for a job?: No Are you interested in more education?: No Please select the resources that you would like help with: None Currently or been in a relationship where the following occur: No concerns reported THRIVE Score: 0 MARE-7 AMB Questionnaire MARE-7 Date MARE - 7 assessed: 09/24/24 Feeling nervous, anxious, or on edge: 0 = Not at all Not being able to stop or control worryin = Not at all Worrying too much about different things: 0 = Not at all Trouble relaxin = Not at all Being so restless that it is hard to sit still: 0 = Not at all Becoming easily annoyed or irritable: 0 = Not at all Feeling afraid as if something awful might happen: 0 = Not at all Total MARE-7 score (0-4 normal; 5-9 mild; 10-14 moderate; 15-21 severe): 0 Source: Developed by Drs. Abiodun Saldaña, Soo Tong, Jaun Rousseau and colleagues, with an educational gualberto from [employer]. Review of Systems Const All systems reviewed & are unremarkable except as noted in HPI and below Eyes Reports no additional complaints ENT Reports no additional complaints Card Reports no additional complaints Resp Reports no additional complaints GI Reports no additional complaints Physical exam (Primary Care) Vital Signs: Last Vital Signs Temp 98.4 F 02/05/25 09:31 Pulse 67 02/05/25 09:31 Resp 18 02/05/25 09:31 BP 124/68 02/05/25 09:31 Pulse Ox 96 02/05/25 09:31 Oxygen Delivery Method Room Air 02/05/25 09:31 BMI result Body Mass Index 53.8 Tobacco/Smoking Status: Tobacco use Status Tobacco use date assessed 02/05/25 02/05/25 09:40 Patient Tobacco Use Status Former Tobacco user 02/05/25 09:40 e-Cigarette/Vaping Use Never Used 02/05/25 09:40 PHQ-9: PHQ-9 Score PHQ-9: Total score 12 02/05/25 09:40 Depression Screening Interpretation: Positive (Patient will schedule an appointment with a counselor) Depression Screening Follow-up: Existing condition and In treatment Thrive Assessment: Date of Thrive Assessment Date Thrive assessed 09/17/24 02/05/25 09:40 Currently or been in a relationship where the following occur: No concerns reported Const General: no acute distress HENMT Ears: hearing grossly normal bilaterally Mouth: Normal oral and palatal mucosa present Eyes General: appearance normal, both eyes and all related structures Resp Effort & Inspection: normal respiratory effort Auscultation: clear to auscultation bilaterally Cardio Rhythm: regular rhythm Heart sounds: S1 normal heart sound present and S2 normal heart sound present Coding Level of Care Code Est Pt Level 4 (41787) Diagnoses Anxiety F41.9 IDDM (insulin dependent diabetes mellitus) Assessment & Plan Assessment & Plan (1) Anxiety: Code(s): F41.9 - Anxiety disorder, unspecified Category: Medical Plan: Patient will continue 75 mg of sertraline. She will get established with a counselor. Stress management and mindfulness discussed with the patient. (2) IDDM (insulin dependent diabetes mellitus): Comment: Difficulty swallowing metformin tablet, on Insulin and Jardiance. Trulicity was not effective, she can not afford co-pay for Sh[place]a, Category: Medical Plan: Continue current medications. Patient was advised to increase Humalog to 30 units before dinner follow-up in 3 months with a fasting labs before Medications: Changed From insulin lispro (Humalog KwikPen (U-100) Insulin) 20 units subcut TID To insulin lispro (Humalog KwikPen (U-100) Insulin) 20 units q AM, 20 u q lunch, 30 units before dinner subcutaneously 3 times a day;
--- OUTSIDE RECORDS SUMMARY | 2025-02-05 10:21 | XMS_ITS | Patient Health Record ---
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 Role Phone Belkys Buenrostro MD Primary Care Provider Pam Moreno Unavailable [phone] Allergies Allergen (clinical drug ingredient) Drug/Non Drug Allergy documented on EMR Reaction Allergy Type Onset Date Status acetaminophen / oxycodone Percocet Unknown Drug Allergy Active metformin Metformin Unknown Drug Allergy Active Reason For Referral No Information Medications Medication SIG (Take, Route, Frequency, Duration) Notes Start Date End Date Status Jardiance 25 MG 1 tablet Orally Once a day Active Ketoconazole 2 % 1 application Externally Once a day Not-Taking Montelukast Sodium A ctive Pantoprazole Sodium 40 MG 1 tablet Orall y Once a day; Duration: 30 day(s) Active Lantus 100 UNIT/ML as directed Subcutaneous Active Kyleena 19.5 MG as directed Intrauterine Active Ciclopirox Olamine 0.77 % 1 application to affected area Externally Twice a day to effected areas on feet; Duration: 30 days 12/12/2022 Not-Taking Olmesartan Medoxomil 20 MG 1 tablet Oral ly Once a day; Duration: 30 day(s) Active Ammonium Lactate 12 % 1 application to affected area Externally Twice a day to dry areas of skin on feet; Duration: 30 days 12/12/2022 Not-Taking Atorvastatin Calcium 20 MG 1 tablet Oral ly Once a day Active Pravastatin Sodium 20 MG 1 tablet Orally Once a day; Duration: 30 day(s) Not-Taking Symbicort Active Cyclobenzaprine HCl 10 MG 1 tablet at be dtime as needed Orally Once a day; Duration: 30 day(s) Not-Taking HumaLOG 100 UNIT/ML as directed Injection Active Albuterol Sulfate 108 (90 Base) MCG/ACT 1 puff as needed Inhalation every 4 hrs Active Trulicity 3 MG/0.5ML as directed Subcutaneous Not-Taking Ozempic Active Clotrimazole-Betamethasone 1-0.05 % 1 application to affected area Externally Twice a day to affected areas on feet; Duration: 30 days 12/13/2021 Not-Taking Social History Tobacco [...] Problem Status W/U Status Risk Notes Problem Type II diabetes mellitus without complication ([id number]) Type 2 diabetes mellitus without complications (E11.9) Active confirmed Vital Signs Height 5ft2in in 02/18/2024 Weight 299 lbs 02/18/2024 BMI 54.68 kg/m2 02/18/2024 Encounters Encounter Location Date Provider Diagnosis [facility] [address] [address] 02/18/2024 Pam Woodard Type 2 diabetes mellitus without complications E11.9 and Xerosis cutis L85.3 Assessments Encounter Date Diagnosis (ICD Code) Assessment Notes Treatment Notes Treatment Clinical Notes Section Notes 02/18/2024 Xerosis cutis (ICD-10 - L85.3) 02/18/2024 Type 2 diabetes mellitus without complications (ICD-10 - E11.9) Plan Of Treatment Next Appt Details Provider Name:Pam olivares, 02/17/2025 09:00:00 AM, [address] [place], [address], Insurance Providers Payer Name Payer Address Payer Phone Subscriber Number Group Number Insured Name Patient Relationship to Insured Coverage Start Date Coverage End Date [facility] [address] [place] [address] [id number] Shanique Ventura Self - patient is the [...]
--- OUTSIDE RECORDS SUMMARY | 2025-02-05 10:23 | XMS_ITS | Clinical Summary ---
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 Not on aleena e 07/03/2023 Are you concerned about learning? Not on file 07/03/2023 No 07/03/2023 No 07/03/2023 Digital Access Answer Date Recorded No 07/03/2023 No 07/03/2023 Reliable internet access at home? Not on file 07/03/2023 Device with a working camera? Not on file Intimate Partner Violence Answer Date R ecorded Are you denied basic needs s uch as food, clothing, or medical care? No 07/03/2023 In the past 12 months have y ou been in a relationship with a person who hurts, threatens, or tries to control you? No 07/03/2023 Are you denied basic needs s uch as food, clothing, or medical care? No 07/03/2023 In the past 12 months have y ou been in a relationship with a person who hurts, threatens, or tries to control you? No 07/03/2023 Comments Unknown Sex and Gender Information Value Date Recorded Sex Assigned at Female 07/03/2023 7:38 PM EST Legal Sex Female 7:28 PM EST Gender Identity Female 07/03/2023 7:38 PM EST Sexual Orientation Not on file Last Filed Vital Signs Vital Sign Reading Time Taken Comments Blood Pressure 122/64 07/04/2023 1:40 AM EST Pulse 84 07/04/2023 1:40 AM EST Temperature 37 C (98.6 F) 07/04/2023 1:40 AM EST Respiratory Rate 18 07/04/2023 1:40 AM EST Oxygen Saturation 99% 07/04/2023 1:40 AM EST Inhaled Oxygen Concentration - - Weight 136.1 kg (300 lb) 07/03/2023 7:36 PM EST Height 157.5 cm (5' 2 ) 07/03/2023 7:36 PM EST Body Mass Index 54.87 07/03/2023 7:36 PM EST Plan of Treatment Not on file Medical Devices Not on file Insurance [place] [address] [place] [address] [place] [place] [id number] [place], [place] [id number] [address] HMO Care Teams Bread Molder Relationship Specialty Start Date End Date Pcp, Unknown PCP - General 07/03/23 Additional Source Comments The information contained in this document represents components of the legal health record. It is not the complete legal health record.[facility]
== END 2025-02-05 10:29 | disposition home or self-care (01) ==
LOC: HO.HMCC 09:21
PROVIDERS: PCP Internal Medicine; Visit Provider Internal Medicine
DX: F41.9 Anxiety disorder, unspecified (principal)

== ENCOUNTER 2025-02-23 06:00 | Outpatient (RCR) | payer OTHER, SELFPAY | END 2025-04-13 13:44 | disposition home or self-care (01) | LOC: HO.PTCHIC 06:00 | PROVIDERS: PCP Internal Medicine; Visit Provider Orthopaedic Surgery | DX: M75.42 Impingement syndrome of left shoulder (principal) | CPT/HCPCS: 97110; 97162 ==

== ENCOUNTER 2025-04-13 07:30 | Outpatient (REF) | payer OTHER, SELFPAY ==
[2025-04-13 10:33] LABS: MANUAL DIFF FLAG NO
[2025-04-13 11:11] LABS: Hematocrit 37.2 % (37.0-47.0); Hemoglobin 11.3 g/dl (12.0-16.0); Imm Gran Abs Auto 0.09 X10*3/uL (0.00-0.03); Imm Gran Pct Auto 0.9 % (0.0-0.4); Lymphocytes Absolute Auto 1.5 X10*3/uL (1.2-4.9); Mean Corpuscular HGB Conc 30.4 g/dl (31.0-35.0); Mean Corpuscular Hemoglobin 25.1 pg (27.0-33.0); Mean Corpuscular Volume 82.7 fL (80.0-98.0); NRBC Abs Auto 0.000 X10*3/uL (0.0-0.012); NRBC Pct Auto 0.0 /100WBC (0.0-0.2); Platelet Count 327 X10*3/uL (160-400); Red Blood Count 4.50 X10*6/uL (4.20-5.50); White Blood Count 10.5 X10*3/uL (4.8-10.8)
[2025-04-13 11:22] LABS: Alanine Aminotransferase 23 U/L (0-31); Albumin Level 3.9 g/dL (3.5-5.0); Alkaline Phosphatase 108 U/L (39-117); Anion Gap 12 (12-20); Aspartate Amino Transferase 19 U/L (5-31); Blood Urea Nitrogen 10 mg/dL (9-16); Calcium 8.8 mg/dL (8.4-10.2); Carbon Dioxide 22 mmol/L (22-29); Chloride 108 mmol/L (96-108); Cholesterol 120 mg/dL (<200); Estimated Glomerular Filt Rate > 60; HDL Cholesterol 44 mg/dL (>40); Potassium 3.8 mmol/L (3.3-5.1); Sodium 138 mmol/L (135-145); Total Protein 6.7 g/dL (6.5-8.0); Triglycerides 57 mg/dL (<150)
[2025-04-13 11:28] LABS: Microalbum/Creatinine Ratio Ur 10.6 ug/mg cr (<30)
== END 2025-04-13 07:31 | disposition home or self-care (01) ==
LOC: HO.HMGCLDS 07:30
PROVIDERS: PCP Internal Medicine; Visit Provider Internal Medicine
DX: Z13.1 Encounter for screening for diabetes mellitus (principal); I10 Essential (primary) hypertension; E78.5 Hyperlipidemia, unspecified
CPT/HCPCS: 36415; 80053; 80061; 82043; 82570; 83036; 85025

== ENCOUNTER 2025-04-26 08:20 | Day surgery (SDC) | payer OTHER, SELFPAY ==
[2025-04-12 12:14] VITALS: BP 128/60; PULSE 71; RESP 20; O2SAT 97; BMI 54.0
--- NOTE | 2025-04-12 12:26 | HO.ANESPROP2 ---
Documented by User: Anastasia Amaral NP 04/20/25 14:24 HPI - Anesthesia Eval Consult details Narrative: 44yo F for Upper Endoscopy and Colonoscopy, 04/26/25 No recent illness No CP/SOB with weighted hula hoops, weighted ropes Notes increased throat clearing and GERD symptoms. No nasal congestion. Will discuss with Dr Pugh preop BMI 54 LAQUITA: CPAP QHS Asthma: Stable, no inhaler use in months IDDM: FBS ~ 130s GERD: previously well controlled on PPI, now with more symptoms requiring throat clearing Anesthesia Pre-Procedure Meds Is the patient on any of the following meds?: GLP1/DPP4 and SGLT2 Inhib PMFSH Active Problems Active Problems: All Active Problems Depression with anxiety (Acute) Asthma (Acute) Allergic rhinitis (Acute) Vitamin D deficiency (Acute) Vitamin B12 deficiency (Acute) Acute sinusitis (Acute) Cyclitis (Acute) Hx of screening mammography (Acute) Normal pelvic exam (Acute) Rash of both feet (Acute) Acute flank pain (Acute) Annual physical exam (Acute) Normal Pap smear (Acute) Calcific tendonitis of left shoulder (Acute) Shoulder pain, left (Acute) Gastro-esophageal reflux disease without esophagitis (Acute) Sleep apnea (Acute) Sciatica (Acute) Hyperlipemia (Acute) HTN (hypertension) (Acute) Anxiety (Acute) Anemia (Acute) Morbid obesity (Acute) IDDM (insulin dependent diabetes mellitus) (Acute) Past Medical History Medical History Fatty liver Asthma PCOS (polycystic ovarian syndrome) Renal calculi Sciatica Hyperlipemia HTN (hypertension) Anxiety Anemia Sleep apnea Morbid obesity Dysphagia IDDM (insulin dependent diabetes mellitus) Family History Family History Father CVD (cardiovascular disease) Diabetes mellitus Substance use disorder Mother No problems noted. Paternal Grandmother Diabetes mellitus Paternal Grandfather Diabetes mellitus Sister Cancer of thyroid Maternal Grandmother Mental health disorder Surgical History Surgical History (Updated 04/12/25 @ 12:08 by Lynda Mata RN) History of esophagogastroduodenoscopy (EGD) Hx of shoulder surgery Hx of wisdom tooth extraction History of tonsillectomy and adenoidectomy Hx of cholecystectomy Social History Social History Housing: Apartment Are you a primary rn long term care to a significant other at home: No Do you presently have visiting nurse or other home services: No Alcohol intake: current Alcohol intake frequency: holidays/special occasions only Patient Tobacco Use Status: Former Tobacco user Tobacco use type: Cigarette Years Smoked: 1 e-Cigarette/Vaping Use: Never Used Use of substances other than those prescribed or required for medical reasons: No Have you been hit, kicked, punched, or otherwise hurt by someone within the past year? If so, by whom?: No Spiritual Healthcare Practices: no Zoroastrian Healthcare Practices: no Cultural Healthcare Practices: no Are you DNR?: No Advance Directives: No Advance Directives Information Provided: No Advance Directives on File: No FDLMP: 03/10/25 : No service: No Current occupational status: employed Cognitive needs: No Hearing needs: No Vision needs: Yes Meds Allergies Allergy/AdvReac Type Severity Reaction Status Date / Time oxycodone (Percocet) Allergy Intermediate itching/leg Verified 04/12/25 11:30 swelling metformin AdvReac Intermediate not able Verified 04/12/25 11:30 to swallow-pill too large Home Medications ?Medication ?Instructions ?Recorded ?Confirmed ?Last Taken ?Type budesonide-formoterol HFA 160 1 inh inhalation BID 07/19/23 04/09/25 Unknown History mcg-4.5 mcg/actuation aerosol inhaler (Symbicort) insulin lispro 100 unit/mL See Rx Instructions subcut TID 02/05/25 04/09/25 Unknown History subcutaneous pen (Humalog KwikPen (U-100) Insulin) insulin glargine 100 unit/mL 50 unit subcut BEDTIME 04/12/25 04/12/25 Unknown History subcutaneous solution (Lantus U-100 Insulin) montelukast 10 mg tablet 10 mg PO QAM 04/12/25 04/12/25 Unknown History olmesartan 5 mg tablet 5 mg PO QAM 04/12/25 04/12/25 Unknown History pantoprazole 40 mg tablet,delayed 80 mg PO QAM 04/12/25 04/12/25 Unknown History release sertraline 50 mg tablet 50 mg PO QAM 04/12/25 04/12/25 Unknown History Exam Height,Weight and Vital Signs: Height 5 ft 2 in Weight 133.81 kg Last Vital Signs Pulse 71 04/12/25 12:14 Resp 20 04/12/25 12:14 BP 128/60 04/12/25 12:14 Pulse Ox 97 04/12/25 12:14 O2 Del Method Room Air 04/12/25 12:14 Pertinent Lab Results Pertinent Lab Results: Laboratory Tests 11/19/24 07:06 WBC 10.8 Hgb 11.9 L Hct 38.0 Plt Count 350 Sodium 140 Potassium 3.6 Chloride 109 H Carbon Dioxide 24 BUN 11 Creatinine 0.59 Airway Mallampati Class: I TM Dist: >3cm Neck ROM: Full Heart: RRR Lungs: CTAB Assessment and Plan Assessment Anesthesia Assessment: Anesthesia Plan Discussed and PAT Visit Documented by User: Emerson Kelsey MD 04/26/25 09:50 [facility] Past Medical History Medical History Fatty liver Asthma PCOS (polycystic ovarian syndrome) Renal calculi Sciatica Hyperlipemia HTN (hypertension) Anxiety Anemia Sleep apnea Morbid obesity Dysphagia IDDM (insulin dependent diabetes mellitus) Cognitive capacity: normal Functional capacity: independent ambulation Family History Family History Father CVD (cardiovascular disease) Diabetes mellitus Substance use disorder Mother No problems noted. Paternal Grandmother Diabetes mellitus Paternal Grandfather Diabetes mellitus Sister Cancer of thyroid Maternal Grandmother Mental health disorder Family history of problems with anesthesia: No Surgical History Surgical History (Updated 04/12/25 @ 12:08 by Lynda Mata RN) History of esophagogastroduodenoscopy (EGD) Hx of shoulder surgery Hx of wisdom tooth extraction History of tonsillectomy and adenoidectomy Hx of cholecystectomy History of Problems with Anesthesia: No Social History Social History (Reviewed 09/12/25 @ 09:40 by CELINA Pierre Housing: Apartment Are you a primary rn long term care to a significant other at home: No Do you presently have visiting nurse or other home services: No Alcohol intake: current Alcohol intake frequency: holidays/special occasions only Patient Tobacco Use Status: Former Tobacco user Tobacco use type: Cigarette Years Smoked: 1 e-Cigarette/Vaping Use: Never Used Use of substances other than those prescribed or required for medical reasons: No Have you been hit, kicked, punched, or otherwise hurt by someone within the past year? If so, by whom?: No Spiritual Healthcare Practices: no Zoroastrian Healthcare Practices: no Cultural Healthcare Practices: no Are you DNR?: No Advance Directives: No Advance Directives Information Provided: No Advance Directives on File: No FDLMP: 03/10/25 : No service: No Current occupational status: employed Cognitive needs: No Hearing needs: No Vision needs: Yes Meds Allergies Allergy/AdvReac Type Severity Reaction Status Date / Time oxycodone (Percocet) Allergy Intermediate itching/leg Verified 04/12/25 11:30 swelling metformin AdvReac Intermediate not able Verified 04/12/25 11:30 to swallow-pill too large Home Medications ?Medication ?Instructions ?Recorded ?Confirmed ?Last Taken ?Type budesonide-formoterol HFA 160 1 inh inhalation BID 07/19/23 04/09/25 Unknown History mcg-4.5 mcg/actuation aerosol inhaler (Symbicort) insulin lispro 100 unit/mL See Rx Instructions subcut TID 02/05/25 04/09/25 Unknown History subcutaneous pen (Humalog KwikPen (U-100) Insulin) insulin glargine 100 unit/mL 50 unit subcut BEDTIME 04/12/25 04/12/25 Unknown History subcutaneous solution (Lantus U-100 Insulin) montelukast 10 mg tablet 10 mg PO QAM 04/12/25 04/12/25 Unknown History olmesartan 5 mg tablet 5 mg PO QAM 04/12/25 04/12/25 Unknown History pantoprazole 40 mg tablet,delayed 80 mg PO QAM 04/12/25 04/12/25 Unknown History release sertraline 50 mg tablet 50 mg PO QAM 04/12/25 04/12/25 Unknown History Exam Airway Other: normal Assessment and Plan Final Anesthetic Review Family History of Problems with Anesthesia: No History of Problems with Anesthesia: No NPO: Yes ASA Class: III Final Preanesthetic Review: No Changes in Pt Med Stat, Meds/Allgs Chart Reviewed, Consent Obtained/Reviewed and Anes Risks/Benef Reviewed Patient Risk: Intermediate Procedure Risk: Low Anesthetic Plan Anesthetic Plan: MAC: Disposition: Standard PACU
[2025-04-26 08:50] LABS: UPreg QC Valid YES
[2025-04-26 08:56] VITALS: BP 135/51; PULSE 80; RESP 16; TEMP 36.6; O2SAT 97
[2025-04-26 09:08] LABS: Glucose, Whole Blood 167 mg/dL (60-115)
[2025-04-26] MEDS: Lactated Ringers 1,000 ML 100 ML IVCONT (09:13)
--- NOTE | 2025-04-26 09:53 | PC.NURSE ---
called for a resp treatment per md cole.
[2025-04-26 10:04] VITALS: PULSE 77; RESP 15; O2SAT 97
[2025-04-26] MEDS: Albuterol Sulfate (0.083%) 2.5 MG/3 ML VIAL.NEB INHALE (10:04)
[2025-04-26 11:23] VITALS: BP 110/60; PULSE 70; RESP 16; TEMP 36.7; O2SAT 99
[2025-04-26 11:38] VITALS: BP 144/54; PULSE 78; RESP 16; TEMP 36.6; O2SAT 100
--- NOTE | 2025-04-26 11:41 | PM.OP ---
Brief Operative Note Date of Service: 04/26/25 Pre-op diagnosis: GERD, Screening, Diarrhea Post-op diagnosis: other (Hiatal hernia, GERD, Polyps) Procedure: EGD with bx, Colonoscopy to the cecum and TI with bx, and bx/removal of polyps Surgeon: Abiodun Pugh MD Anesthesia: MAC Was an Research Greenhouse Supervisor used for this Procedure?: No Estimated blood loss (mL): 2.0 Pathology: other (A. 2nd and 3rd portions of duodenum B. gastric antrum C. gastric polyps D. EG Junction at 36cm E. Ascending colon F. Descending colon G. rectal polyps) Condition: stable Disposition: PACU
--- NOTE | 2025-04-26 12:15 | OP_ITS ---
DATE OF SERVICE: 04/26/2025 SURGEON: Abiodun Pugh MD INDICATIONS: The patient presents for evaluation of gastroesophageal reflux, diarrhea, and colorectal cancer screening. Full consent has been obtained from her for both procedures, including risks of bleeding and perforation. PREOPERATIVE DIAGNOSIS: POSTOPERATIVE DIAGNOSIS: PROCEDURE PERFORMED: ESTIMATED BLOOD LOSS: COMPLICATIONS: ANESTHESIA: Medication used, monitored anesthesia care. ASSISTANTS: SPECIMENS: PREOPERATIVE DIAGNOSES: Gastroesophageal reflux, diarrhea, and colorectal cancer screening. POSTOPERATIVE DIAGNOSES: Gastroesophageal reflux, diarrhea, and colorectal cancer screening, small hiatal hernia, rule out Chase's esophagus, gastritis, rule out celiac disease, gastric polyps, colon polyps, rule out microscopic colitis, internal hemorrhoids. PROCEDURES PERFORMED: Esophagogastroduodenoscopy with biopsies, and colonoscopy to cecum and terminal ileum with biopsies, and biopsy and removal of polyps. DESCRIPTION OF PROCEDURE: The patient was placed in the left lateral decubitus position. The Olympus video gastroscope was passed in the posterior oropharynx and upper esophagus under direct vision. The scope was passed slowly to the distal esophagus. The gastroesophageal junction appeared at 36 cm. There was some slight irregularity consistent with reflux and possibly small areas of Chase's mucosa. There was no esophagitis. There were no lesions nor ulceration. The scope entered the stomach. There was a small hiatal hernia. The scope was advanced to the pylorus, and the duodenum was cannulated to the descending portion. The duodenum including the bulb appeared normal without mass or ulceration. Biopsies were obtained from the second and third portions of duodenum. The scope was withdrawn back to the stomach. The gastric antrum had some changes of mild gastritis with some erythema and edema, but no erosions or ulceration. There was good peristalsis. Biopsies were obtained from the antrum. The scope was retroflexed visualizing the proximal stomach carefully, which appeared normal, without any sign of mass or ulceration, other than some hyperplastic appearing gastric polyps. Two of these were biopsied. The scope was straightened and withdrawn back to the esophagus. Biopsies were obtained at the EG junction at 36 cm. Proximal to this, the esophageal mucosa appeared normal. The scope was withdrawn from the patient. She was turned around for the colonoscopy. The digital rectal exam revealed no abnormalities. The Olympus video pediatric colonoscope was entered into the rectum and advanced easily to the cecum. Once in the cecum I identified a normal appearing cecal pouch with appendiceal orifice and a normal-appearing ileocecal valve. The terminal ileum was cannulated and appeared normal. The scope was withdrawn back in the colon. The entire cecum and ileocecal valve appeared normal. The scope was slowly withdrawn assessing all mucosal surfaces carefully. Preparation was excellent. I did not visualize any sign of colitis nor angiodysplasia. Random biopsies were obtained in the ascending and descending colon to rule out microscopic colitis. In the rectum were 2 flat, approximately 3 or 4 mm polyps, which were biopsied and completely removed with a cold biopsy forceps. The scope was retroflexed visualizing some small internal hemorrhoids as well. The scope was straightened and withdrawn from the patient. She tolerated the procedures well and was returned to the recovery area in stable condition. IMPRESSION: 1. Colon polyps. 2. Rule out microscopic colitis. 3. Internal hemorrhoids. 4. Small hiatal hernia, gastroesophageal reflux, rule out Chase's esophagus. 5. Gastric polyps. 6. Rule out celiac disease. PLAN: The results of the biopsies will be checked. She was advised not to use any aspirin nor NSAIDs for 1 week. If the colon polyps are tubular adenomas, I would recommend a followup coloscopy in 5 years. If they are both hyperplastic, I would recommend a followup coloscopy in 10 years. She was advised to continue her pantoprazole once or twice a day for symptomatic relief of reflux. At this point, I would hold off on a hiatal hernia surgery recommendation given that her reflux symptoms are not frequent and there was no sign of any esophagitis. Obviously, dietary discretion and weight loss would help with this problem as well. She will see me as needed. I did advise her to call if the reflux worsens and we could consider other workup including a gastric emptying study to rule out gastroparesis in relation to the diabetes that might be contributing to the reflux. If the diarrhea persists, and the biopsies are all negative, we could consider adding cholestyramine as well given her previous cholecystectomy. She will otherwise see me as needed. This has been discussed with her . MD TROY Lane/TAYLOR / [phone] LB
== END 2025-04-26 12:07 | disposition home or self-care (01) ==
PROVIDERS: Nurse Practitioner; PCP Internal Medicine; Visit Provider Internal Medicine
PROC: (CPT 45380; principal; 2025-04-26 09:40)
DX: Z12.11 Encounter for screening for malignant neoplasm of colon (principal); K21.00 Gastro-esophageal reflux disease with esophagitis, without bleeding; K58.9 Irritable bowel syndrome, unspecified; K44.9 Diaphragmatic hernia without obstruction or gangrene; K31.7 Polyp of stomach and duodenum; K63.5 Polyp of colon; E11.9 Type 2 diabetes mellitus without complications
CPT/HCPCS: 45380; 43239; 81025; 82947; 88305; 88313; 88342; 94640; J2003; J2704; J3010

== ENCOUNTER 2025-05-11 08:58 | Outpatient (AMB) | payer OTHER, SELFPAY ==
--- OUTSIDE RECORDS SUMMARY | 2023-12-11 04:00 | XMS_ITS ---
Author Organization [facility] Address [address] [place] [address] Care Team Providers Care Surgical Scheduler Name Role Phone Belkys Buenrostro MD Primary Care Provider Pam Moreno [phone] Encounters Encounter Location Date Provider Diagnosis [facility] [address] [place] [address] 12/11/2023 Pam Woodard Plan Of Treatment No Information Progress Notes * Aníbal HARRISONOB: 0 (44 yo F)Acc No.[id number]:12/11/2023 Progress Note Patient: Shanique RIVERA Provider: Ja Woodard DPM :1980 A ge:43 Y S ex:Female Date:12/11/2023 Address:[address] [id number] Pcp:Belkys Buenrostro MD Subjective: * Chief Complaints: * * Medical History: Objective: * Vitals: Assessment: Plan: * Treatment: * Images: * The named appointment provid er may or may not be the originator of this progress note, and it is not deemed complete until electronically signed by the appointment provider. Sign off status: Pending * Provider: Ja Woodard DPM Date: 0 12/11/2023 Generated for Printi ng/Faxing/eTransmitting on: 1 07/12/2024 10:03 AM EST
--- OUTSIDE RECORDS SUMMARY | 2025-02-17 04:00 | XMS_ITS ---
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 Name Role Phone Belkys Buenrostro MD Primary Care Provider Pam Moreno [phone] Encounters Encounter Location Date Provider Diagnosis [facility] [address] [place] [address] 02/17/2025 Pam Woodard Plan Of Treatment No Information Progress Notes * Aníbal HARRISONOB: 0 (44 yo F)Acc No.[id number]:02/17/2025 Progress Note Patient: Shanique RIVERA Provider: Ja Woodard DPM :1980 A ge:44 Y S ex:Female Date:02/17/2025 Address:[address] [facility] Pcp:Belkys Buenrostro MD Subjective: * Chief Complaints: * * Medical History: Objective: * Vitals: Assessment: Plan: * Treatment: * Images: * The named appointment provid er may or may not be the originator of this progress note, and it is not deemed complete until electronically signed by the appointment provider. Sign off status: Pending * Provider: Ja Woodard DPM Date: 0 02/17/2025 Generated for Printi ng/Faxing/eTransmitting on: 1 07/12/2024 10:02 AM EST
--- OUTSIDE RECORDS SUMMARY | 2025-04-26 04:40 | XMS_ITS ---
Author Organization [facility] Address [address] [place] [address] Care Team Providers Care Grinder Set Up Operator Thread Name Role Phone Belkys Buenrostro MD Primary Care Provider Abiodun Medina [phone] REASON FOR VISIT screening,gerd Encounters Encounter Location Date Provider Diagnosis [facility] Outpatient [address] [place], [place] [id number] 04/26/2025 Abiodun Pugh Plan Of Treatment No Information Progress Notes * MAISHA HARRISONEDOB: 0 (44 yo F)Acc No.[id number]:04/26/2025 EGD and COL/MAC Patient: DIVYA RIVERA Provider: Ricky Pugh MD :1980 A ge:44 Y S ex:Female Date:04/26/2025 Address:[address] [facility] Pcp:Belkys Buenrostro MD Subjective: * Chief Complaints: * S creening,gerd * The named appointment provid er may or may not be the originator of this progress note, and it is not deemed complete until electronically signed by the appointment provider. Sign off status: Pending * Provider: Ricky Pugh MD Date: 06/27/2024 Generated for Christi jeffries/Sheldon/eTransmitting on: 07/12/2024 10:03 AM EST
--- NOTE | 2025-05-11 09:03 | MHC.PC.OV ---
Vital Signs 05/11/25 09:04 Height 5 ft 2 in Weight 288 lb BMI 52.7 BP 126/68 Blood Pressure Location Lt brachial Position Sitting Respiration 17 Pulse 81 Pulse Source Pulse Oximeter Temp 98.4 F Temp Source Oral Pulse Oximetry (%) 96 Oxygen Delivery Method Room Air Intake Visit Reasons: 3 month follow up Intake Note: Pt is here today for 3 months follow up visit on DM. Allergies oxycodone (Percocet) Allergy (Intermediate, Verified 05/11/25 09:06) itching/leg swelling metformin Adverse Reaction (Intermediate, Verified 05/11/25 09:06) not able to swallow-pill too large Medication List - Last Reconciled 05/11/25 by Belkys Buenrostro MD albuterol sulfate 90 mcg/actuation 1 puff PO QID PRN atorvastatin 20 mg PO DAILY blood-glucose sensor (ChoreMonsteryle Sheryl 2 Plus Sensor device) Test blood sugar 4 times per day, change sensor every 15 days budesonide-formoterol 160-4.5 mcg/actuation (Symbicort) 1 inh inhalation BID CPAP (CPAP Machine/Device) including supplies-pressure setting 13cm H2O with AirFit 20 small mask empagliflozin (Jardiance) 25 mg PO DAILY flash glucose scanning reader (ChoreMonsteryle Sheryl 2 [place]) As directed insulin glargine (Lantus U-100 Insulin) 50 units subcut BEDTIME insulin lispro (Humalog KwikPen (U-100) Insulin) 20 units q AM, 20 u q lunch, 30 units before dinner subcutaneously 3 times a day; lancets (FreeStyle Lancets) test blood sugar 3 times per day montelukast 10 mg PO DAILY Mounjaro (tirzepatide) 15 mg (0.5 mL) subcut QWEEK NS olmesartan 5 mg PO QAM pantoprazole 80 mg PO QAM sertraline 50 mg PO QAM Tobacco use date assessed: 02/05/25 Dental Screening Dental Screen Date: 09/24/24 HPI 3 month follow up HPI Details Patient presents for the follow-up insulin-dependent diabetes hyperlipidemia sleep apnea. Patient reports persistently feeling tired despite getting 10 hours of sleep. Patient's machine reports good compliance but patient is concerned about hypoxia detected by her apple watch down to 88%. Patient has been skipping Lantus insulin on and off because of low fasting glucose readings in the mornings. She has started working out in the evenings. Patient's has glucose spikes up to over 200s after lunch and dinner despite taking Humalog 12-15 units before meals. Depression is slightly better but patient is still has a 50% days of feeling sad and depressed during the week. She is not interested in counseling or changing her antidepressant, PFSH Medical History Fatty liver Asthma PCOS (polycystic ovarian syndrome) Renal calculi Sciatica Hyperlipemia HTN (hypertension) Anxiety Anemia Sleep apnea Morbid obesity Dysphagia IDDM (insulin dependent diabetes mellitus) Surgical History History of esophagogastroduodenoscopy (EGD) Hx of shoulder surgery Hx of wisdom tooth extraction History of tonsillectomy and adenoidectomy Hx of cholecystectomy Family History Father CVD (cardiovascular disease) Diabetes mellitus Substance use disorder Mother No problems noted. Paternal Grandmother Diabetes mellitus Paternal Grandfather Diabetes mellitus Sister Cancer of thyroid Maternal Grandmother Mental health disorder Social History Housing: Apartment Are you a primary hospice care transitions coordinator to a significant other at home: No Do you presently have visiting nurse or other home services: No Alcohol intake: current Alcohol intake frequency: holidays/special occasions only Patient Tobacco Use Status: Former Tobacco user Tobacco use type: Cigarette Years Smoked: 1 e-Cigarette/Vaping Use: Never Used service: No Current occupational status: employed Cognitive needs: No Hearing needs: No Vision needs: Yes Questionnaire Thrive Questionnaire Date Thrive assessed: 09/17/24 I am a: Patient What is your living situation today?: I have a steady place to live Within the past 12 months, did the food you bought not last and you didn't have the money to get more?: Never true Within the past 12 months, did you worry whether your food would run out before you got money to buy more?: Never true Do you have trouble paying for medicines?: No Do you have trouble getting transportation to medical appointments?: No Do you have trouble paying your heating and electricity bill?: No Do you have trouble taking care of your child, family member or friend?: No Do you have trouble with day-to-day activities such as bathing, preparing meals, shopping, managing finances, etc.?: No Are you currently unemployed and looking for a job?: No Are you interested in more education?: No Please select the resources that you would like help with: None Currently or been in a relationship where the following occur: No concerns reported THRIVE Score: 0 MARE-7 AMB Questionnaire MARE-7 Date MARE - 7 assessed: 09/24/24 Source: Developed by Drs. Abiodun Saldaña, Soo Tong, Jaun Rousseau and colleagues, with an educational gualberto from [employer]. Review of Systems Const All systems reviewed & are unremarkable except as noted in HPI and below ENT Reports no additional complaints Card Reports no additional complaints Resp Reports no additional complaints GI Reports no additional complaints Physical exam (Primary Care) Vital Signs: Last Vital Signs Temp 98.4 F 05/11/25 09:04 Pulse 81 05/11/25 09:04 Resp 17 05/11/25 09:04 BP 126/68 05/11/25 09:04 Pulse Ox 96 05/11/25 09:04 Oxygen Delivery Method Room Air 05/11/25 09:04 BMI result Body Mass Index 52.7 Tobacco/Smoking Status: Tobacco use Status Tobacco use date assessed 02/05/25 05/11/25 09:10 Patient Tobacco Use Status Former Tobacco user 05/11/25 09:10 Tobacco use type Cigarette 05/11/25 09:10 e-Cigarette/Vaping Use Never Used 05/11/25 09:10 Thrive Assessment: Date of Thrive Assessment Date Thrive assessed 09/17/24 05/11/25 09:10 Currently or been in a relationship where the following occur: No concerns reported Const General: no acute distress HENMT Throat: Yes posterior oropharynx normal Neck Neck: Yes supple Resp Effort & Inspection: normal respiratory effort Auscultation: clear to auscultation bilaterally Cardio Rhythm: regular rhythm Heart sounds: S1 normal heart sound present and S2 normal heart sound present GI Inspection: Yes normal to inspection Palpation (GI): Soft to palpation Coding Level of Care Code Est Pt Level 4 (00609) Diagnoses HTN (hypertension) I10 Hyperlipemia E78.5 IDDM (insulin dependent diabetes mellitus) Sleep apnea G47.30 Assessment & Plan Assessment & Plan (1) HTN (hypertension): Code(s): I10 - Essential (primary) hypertension Category: Medical Plan: Continue medication (2) Hyperlipemia: Code(s): E78.5 - Hyperlipidemia, unspecified Category: Medical Plan: Continue statin (3) IDDM (insulin dependent diabetes mellitus): Comment: on Insulin, Shagufta Chris-has CGM Category: Medical Plan: A1c is 6.7. Patient was advised to restart Lantus at lower dose 20 units daily and monitor her glucose 2 hours after meal to adjust the dose of Humalog before meals. Continue the rest of the medication regular physical activity decrease caloric intake and weight loss discussed with the patient. Follow-up in 3 months (4) Sleep apnea: Comment: on Cpap Code(s): G47.30 - Sleep apnea, unspecified Category: Medical Plan: For episodes of nocturnal hypoxemia and persistent fatigue obtain repeat sleep study, continue CPAP with the same setting Orders: Orders Complete Blood Count Auto Diff 3 Months E78.5 - Hyperlipidemia, unspecified, I10 - Essential (primary) hypertension Lipid Panel 3 Months E78.5 - Hyperlipidemia, unspecified, I10 - Essential (primary) hypertension TSH reflex Free T4 3 Months E78.5 - Hyperlipidemia, unspecified, I10 - Essential (primary) hypertension RT PSG in-lab sleep study Today G47.30 - Sleep apnea, unspecified, G47.34 - Idiopathic sleep related nonobstructive alveolar hypoventilation Comprehensive [place]. Panel Fast 3 Months E78.5 - Hyperlipidemia, unspecified, I10 - Essential (primary) hypertension Hemoglobin A1c 3 Months E78.5 - Hyperlipidemia, unspecified, I10 - Essential (primary) hypertension Microalbumin, Random (w Creat) 3 Months E78.5 - Hyperlipidemia, unspecified, I10 - Essential (primary) hypertension
[2025-05-11 09:04] VITALS: BP 126/68; PULSE 81; RESP 17; TEMP 36.9; O2SAT 96; BMI 52.7
--- OUTSIDE RECORDS SUMMARY | 2025-05-11 10:03 | XMS_ITS | Patient Health Record ---
Author Organization [facility] Address [address] [place] [address] Care Team Providers Care Legal Word Processor Name Role Phone Belkys Buenrostro MD Primary Care Provider Abiodun Medina [phone] Allergies Allergen (clinical drug ingredient) Drug/Non Drug Allergy documented on EMR Reaction Allergy Type Onset Date Status dust/animals/mold/tr e es/grass/weeds (uncoded) Unknown Allergy Active acetaminophen / oxycodone Percocet Unknown Drug Allergy Active Results Component Value Reference Range Flag Notes Ur Preg Test (Not yet review ed by provider) Interpretation: Performing Lab:[address] [id number] Notes/Report: Urine NEGATIVE NEGATIVE This test was developed to detect early . False negative results may occur after the 5th - 7th week of when using this test method. If clinically indicated, consider a serum hCG. Glucose, Whole Blood (Not ye t reviewed by provider) Interpretation: Performing Lab:[facility], [address] [place] [id number] Notes/Report: Glucose, Whole Blood 167 60-115 mg/dL H [place] TER #: [id number] Pathology (Not yet reviewed by provider) Interpretation: Performing Lab:[facility], [address] [place] [phone] Notes/Report: Reason For Referral No Information Medications Medication SIG (Take, Route, Frequency, Duration) Notes Start Date End Date Status Symbicort 160-4.5 MCG/ACT Aerosol as directed Inhalation Activ e Sertraline HCl 50 MG Tablet 1 and half tablet Orally Once a day Active Albuterol Sulfate HFA 108 (90 Base) MCG/ACT Aerosol Solution 1 puff as needed Inhalation every 4 hrs Active Atorvastatin Calcium 20 MG Tablet 1 tablet Orally Once a day A ctive Montelukast Sodium 10 MG Tablet 1 tablet Orally Once a day A ctive Olmesartan Medoxomil 5 MG Tablet as directed Orally Active Mounjaro 12.5 MG/0.5ML Solution Auto-injector as directed Subcutaneous Active Pantoprazole Sodium 40 MG Tablet Delayed Release 1 tablet 1/2 to 1 hour before morning meal Orally Once a day Active HumaLOG KwikPen 100 UNIT/ML Solution Pen-injector as directed Subcutaneous Act erickson Jardiance 25 MG Tablet 1 tablet Orally Once a day Active Lantus 100 UNIT/ML Solution as directed Subcutaneous Act erickson Liletta (52 MG) 20.1 MCG/DAY Intrauterine Device as directed Intrauterine Act erickson [place] 3 1000 MG Capsule 1 capsule Orally Three times a day Active Social History Tobacco Use: Social History Observation Description Date Details (start date - stop date) Never Smoker NA - NA Social History Drug/Alcohol: Social Info Question Answer Notes AUDIT-C (Standard) Did you have a drink containing alcohol in the past year? Yes How often did you have a drink containing alcohol in the past year? Never (0 point) How many drinks did you have on a typical day when you were drinking in the past year? 1 or 2 drinks (0 point) How often did you have six or more drinks on one occasion in the past year? Never (0 point) Points 0 Interpretation Negative Tobacco Use: Social Info Question Answer Notes Tobacco Control (Standard) Tobacco use: Nonsmoker Additional Details Category Social Info Options Details Miscellaneous: Marital status: Occupation: [employer] Problems Problem Type SNOMED Code ICD Code Onset Dates Problem Status W/U Status Risk Notes Problem Colon cancer screening (427782403) Colon cancer screening (Z12.11) Active confirmed Problem Irritable bowel syndrome (31992428) Irritable bowel syndrome (K58.9) Active confirmed Problem Gastroesophageal reflux disease (741551773) GERD (gastroesopha geal reflux disease) (K21.9) Active confirmed Vital Signs Blood pressure diastolic 77 mm Hg 01/26/2025 Height 62 in 01/26/2025 Blood pressure systolic 111 mm Hg 01/26/2025 Weight 297 lbs 01/26/2025 BMI 54.32 kg/m2 01/26/2025 Procedures Procedure Date Ordered Date Performed Result Body Sit e UPPER GI ENDOSCOPY 01/26/2025 N/A COLONOSCOPY 01/26/2025 N/A Encounters Encounter Location Date Provider Diagnosis [facility] Outpatient [address], [place] [id number] 04/26/2025 Abiodun Pugh [facility] [address] [place] [phone] 01/26/2025 Abiodun Pugh GERD (gastroesophageal reflux disease) K21.9 ; Colon cancer screening Z12.11 and Irritable bowel syndrome K58.9 [facility] [address] [place] [phone] 12/16/2024 Abiodun Pugh [facility] [address] [place] [phone] 03/24/2025 Abiodun Pugh Assessments Encounter Date Diagnosis (ICD Code) Assessment Notes Treatment Notes Treatment Clinical Notes Section Notes 01/26/2025 Colon cancer screening (ICD-10 - Z12.11) [...] keep you advised of her progress. 01/26/2025 GERD (gastroesopha geal reflux disease) (ICD-10 [...] Date UPPER GI ENDOSCOPY 01/26/2025 COLONOSCOPY 01/26/2025 Ur Preg Test 04/26/2025 Glucose, Whole Blood 04/26/2025 Pathology 04/26/2025 Insurance Providers Payer Name Payer Address Payer Phone Subscriber Number Group Number Insured Name Patient Relationship to Insured Coverage Start Date Coverage End Date [employer] [place] [address] [address] [place] [address] [id number] SHANIQUE HARRISON Self - patient is the insured Medical (General) History Medical History History ICD Code IDDM Hypertension Kidney stones in her 20 s Sleep apnea- uses CPAP machine Asthma GERD--EGD many years ago IBS PCOS Denies NC,CVA,renal disease Hypercholesterolemia Surgical History Surgery Date(Month/Year) tonsils adnoidectomy wisdom teeth extraction cholecystectomy subacromial decompression (acromioplasty right shoulder) subacromial decompression (acromioplasty left shoulder)
--- OUTSIDE RECORDS SUMMARY | 2025-05-11 10:03 | XMS_ITS | Patient Health Record ---
Author Organization [facility] Address [address] [place] [address] Care Team Providers Care Maintenance Pipefitter Name Role Phone Belkys Buenrostro MD Primary Care Provider Pam Moreno Unavailable [phone] Allergies Allergen (clinical drug ingredient) Drug/Non Drug [...] Problem Type II diabetes mellitus without complication (556661947) Type 2 diabetes mellitus without complications (E11.9) Active confirmed Encounters Encounter Location Date Provider Diagnosis [facility] [place] [address] [place] [address] 02/17/2025 Pam Woodard Plan Of Treatment No Information Insurance Providers Payer Name Payer Address Payer Phone Subscriber Number Group Number Insured Name Patient Relationship to Insured Coverage Start Date Coverage End Date [employer] [address] [address] [place] [address] [id number] Shanique Ventura Self - patient is the [...]
--- OUTSIDE RECORDS SUMMARY | 2025-05-11 10:04 | XMS_ITS | Clinical Summary ---
Author Organization [facility] Address [address] [place] [phone] Phone Care Team Providers Care Python Developer Name Role Phone Pcp, Unknown Primary Care [...] Devices Not on file Insurance H[place] [address] [address] [place] [place] [id number] [place], [place] [id number] [place] [address] HMO Care Teams Python Developer Relationship Specialty Start Date End Date Pcp, Unknown PCP - General 07/03/23 Additional Source Comments The information contained in this document represents components of the legal health record. It is not the complete legal health record.[facility]
== END 2025-05-11 10:13 | disposition home or self-care (01) ==
LOC: HO.HMCC 08:59
PROVIDERS: PCP Internal Medicine; Visit Provider Internal Medicine
DX: I10 Essential (primary) hypertension (principal); E78.5 Hyperlipidemia, unspecified; G47.30 Sleep apnea, unspecified